=== PATIENT | male | born 1940 | race Caucasian/White ===

== ENCOUNTER 2017-09-24 19:08 | Emergency (ER) | payer OTHER ==
[2017-09-24] MEDS ORDERED: PIPER/TAZO/NS 3.375gm 3.375 GM/100 ML BAG ONE (20:02)
[2017-09-24] MEDS ORDERED: MOXIFLOXACIN HCL 10 DROPS/ML **OR USE OPTH ONE (20:08)
--- NOTE | 2017-09-24 20:18 | ER ---
Nurse's Notes [facility] Name: José Manuel Ferguson Jr Age: 77 yrs Sex: Male : 1940 Arrival Date: 09/24/2017 Time: 19:12 Bed 13 Private MD: Diagnosis: bilateral bacterial conjunctivitis Presentation: 09/24 19:17 Presenting complaint: Patient states: Redness, swelling, discharge from both eyes for lp1 past 3 days, Patient states it has gotten a bit better now. Transition of care: patient was not received from another setting of care. Onset of symptoms was September 21, 2017. Risk Assessment: Do you want to hurt yourself or someone else? Patient reports no desire to harm self or others. Initial Sepsis Screen: Does the patient meet any 2 criteria? No. Patient's initial sepsis screen is negative. Does the patient have a suspected source of infection? No. Patient's initial sepsis screen is negative. Care prior to arrival: None. 19:17 Method Of Arrival: Wheelchair lp1 19:17 Acuity: YUNI 3 lp1 Historical: - Allergies: 19:26 No Known Allergies; lp1 - Home Meds: 19:26 levothyroxine 25 mcg tab 1 tab once daily [Active]; ProAir HFA 90 mcg/actuation lp1 inhalation HFAA 2 puffs every 6 hours [Active]; Symbicort 80-4.5 mcg/actuation inhalation HFAA 2 puffs 2 times per day [Active]; glipizide 5 mg Oral tab [Active]; aspirin 81 mg Oral TbEC 1 tab once daily [Active]; lisinopril 5 mg Oral tab nightly [Active]; atorvastatin 10 mg oral tab nightly [Active]; metformin 500 mg Oral tab 1 tab 2 times per day [Active]; - PMHx: 19:26 continuous home O2, 2L NC; COPD; Diabetes - NIDDM; High Cholesterol; Hypertension; lp1 - PSHx: 19:26 None; lp1 - Immunization history:: Adult Immunizations up to date. - Social history:: Smoking status: Patient/guardian denies using tobacco, the patient reports quitting approximately 3 years ago. - Ebola Screening: : No symptoms or risks identified at this time. Screenin:30 Abuse screen: Denies threats or abuse. Denies injuries from another. Nutritional bp screening: No deficits noted. Tuberculosis screening: No symptoms or risk factors identified. Fall Risk None identified. Assessment: 19:35 General: Appears in no apparent distress. uncomfortable, obese, Behavior is calm, bp cooperative, appropriate for age. Pain: Complains of pain in right eye and left eye. Neuro: Level of Consciousness is awake, alert, obeys commands, Oriented to person, place, time, situation, Appropriate for age. Cardiovascular: No deficits noted. Respiratory: HOME O2 DEPENDENT, AT BASELINE. GI: No signs and/or symptoms were reported involving the gastrointestinal system. : No signs and/or symptoms were reported regarding the genitourinary system. EENT: Eyes with exudate noted from outer aspect of conjuctiva of right eye, inner aspect of conjuctiva of right eye, outer aspect of conjuctiva of left eye and inner aspect of conjunctiva of left eye. Derm: No deficits noted. Musculoskeletal: Circulation, motion, and sensation intact. Range of motion: intact in all extremities. 20:21 Reassessment: D/C ON HOLD PENDING IV ABX COMPLETION. bp 21:12 Reassessment: PT D/C HOME AMBULATORY, DX WITH BILATERAL BACTERIAL CONJUNCTIVITIS. bp Vital Signs: 19:22 BP 142 / 59; Pulse 69; Resp 18; Temp 97.5(O); Pulse Ox 92% on 4 lpm NC; Weight 114.76 lp1 kg; Height 5 ft. 6 in. (167.64 cm); Pain 6/10; 19:35 BP 154 / 60; Pulse 62; Resp 18; Pulse Ox 93% ; bp 20:30 BP 122 / 49; Pulse 60; Resp 18; Pulse Ox 93% ; bp 21:13 BP 136 / 54; Pulse 58; Resp 16; Pulse Ox 94% ; bp 19:22 Body Mass Index 40.83 (114.76 kg, 167.64 cm) lp1 ED Course: 19:12 Patient arrived in ED. al2 19:22 Triage completed. lp1 19:22 Arm band placed on right wrist. lp1 19:30 Miles Braxton, CLINT is Primary Nurse. bp 19:30 Sebastian Mallory MD is Attending Physician. wa 19:30 Patient has correct armband on for positive identification. Bed in low position. Call bp light in reach. Side rails up X2. 19:59 Inserted saline lock: 22 gauge in right forearm, using aseptic technique. bp 20:16 Hao Gilman MD is Referral Physician. wa 21:12 No provider procedures requiring assistance completed. IV discontinued, intact, bp bleeding controlled, No redness/swelling at site. Pressure dressing applied. Administered Medications: 20:06 Drug: Zosyn 3.375 grams Route: IVPB; Infused Over: 60 mins; Site: right forearm; bp 20:52 Follow up: IV Status: Completed infusion bp 20:15 Drug: Vigamox 0.5 % 1 drops Route: Ophthalmic; Site: both eyes; bp 20:52 Follow up: Response: No adverse reaction bp Outcome: 20:17 Discharge ordered by . wa 21:12 Discharged to home ambulatory, with family. bp 21:12 Condition: stable 21:12 Discharge instructions given to patient, Instructed on discharge instructions, follow up and referral plans. medication usage, Demonstrated understanding of instructions, follow-up care, medications, Prescriptions given X 2. 21:13 Patient left the ED. bp Signatures: Arina Gurrola RN RN lp1 Sebastian Mallory MD MD wa Peltier, Brian RN RN Pat Garcia
--- NOTE | 2017-09-24 20:18 | EDPHYS ---
Physician Documentation [facility] Name: José Manuel Ferguson Jr Age: 77 yrs Sex: Male : 1940 Arrival Date: 09/24/2017 Time: 19:12 Bed 13 Private MD: ED Physician Sebastian Mallory HPI: 09/24 20:04 This 77 yrs old Male presents to ER via Wheelchair with complaints of Eye wa Problem, Eye Swelling. 20:04 The patient is experiencing matting or discharge, redness, to both eyes, caused by an wa unknown mechanism. Onset: The symptoms/episode began/occurred 3 day(s) ago. Duration: the symptoms are continuous. Aggravated by nothing. Alleviated by nothing. Associated signs and symptoms: Pertinent negatives: chills, dizziness, fever, headache, runny nose. Severity of symptoms: At their worst the symptoms were moderate in the emergency department the symptoms are unchanged. The patient has not experienced similar symptoms in the past. The patient has not recently seen a physician. Historical: - Allergies: 19:26 No Known Allergies; lp1 - Home Meds: 19:26 levothyroxine 25 mcg tab 1 tab once daily [Active]; ProAir HFA 90 mcg/actuation lp1 inhalation HFAA 2 puffs every 6 hours [Active]; Symbicort 80-4.5 mcg/actuation inhalation HFAA 2 puffs 2 times per day [Active]; glipizide 5 mg Oral tab [Active]; aspirin 81 mg Oral TbEC 1 tab once daily [Active]; lisinopril 5 mg Oral tab nightly [Active]; atorvastatin 10 mg oral tab nightly [Active]; metformin 500 mg Oral tab 1 tab 2 times per day [Active]; - PMHx: 19:26 continuous home O2, 2L NC; COPD; Diabetes - NIDDM; High Cholesterol; Hypertension; lp1 - PSHx: 19:26 None; lp1 - Immunization history:: Adult Immunizations up to date. - Social history:: Smoking status: Patient/guardian denies using tobacco, the patient reports quitting approximately 3 years ago. - Ebola Screening: : No symptoms or risks identified at this time. ROS: 20:07 Constitutional: Negative for fever, chills, and weight loss, ENT: Negative for injury, wa pain, and discharge, Neck: Negative for injury, pain, and swelling, Cardiovascular: Negative for chest pain, palpitations, and edema, Respiratory: Negative for shortness of breath, cough, wheezing, and pleuritic chest pain, Abdomen/GI: Negative for abdominal pain, nausea, vomiting, diarrhea, and constipation, Back: Negative for injury and pain, MS/Extremity: Negative for injury and deformity, Skin: Negative for injury, rash, and discoloration, Neuro: Negative for headache, weakness, numbness, tingling, and seizure. 20:07 Eyes: Positive for discharge, pain, redness, Negative for blurry vision, photophobia. 20:07 All other systems are negative. Exam: 20:08 Constitutional: This is a well developed, well nourished patient who is awake, alert, wa and in no acute distress. Head/Face: Normocephalic, atraumatic. ENT: Nares patent. No nasal discharge, no septal abnormalities noted. Tympanic membranes are normal and external auditory canals are clear. Oropharynx with no redness, swelling, or masses, exudates, or evidence of obstruction, uvula midline. Mucous membranes moist. Neck: Trachea midline, no thyromegaly or masses palpated, and no cervical lymphadenopathy. Supple, full range of motion without nuchal rigidity, or vertebral point tenderness. No Meningismus. Chest/axilla: Normal chest wall appearance and motion. Nontender with no deformity. No lesions are appreciated. Cardiovascular: Regular rate and rhythm with a normal S1 and S2. No gallops, murmurs, or rubs. Normal PMI, no JVD. No pulse deficits. Respiratory: Lungs have equal breath sounds bilaterally, clear to auscultation and percussion. No rales, rhonchi or wheezes noted. No increased work of breathing, no retractions or nasal flaring. Abdomen/GI: Soft, non-tender, with normal bowel sounds. No distension or tympany. No guarding or rebound. No evidence of tenderness throughout. Back: No spinal tenderness. No costovertebral tenderness. Full range of motion. Skin: Warm, dry with normal turgor. Normal color with no rashes, no lesions, and no evidence of cellulitis. MS/ Extremity: Pulses equal, no cyanosis. Neurovascular intact. Full, normal range of motion. Neuro: Awake and alert, GCS 15, oriented to person, place, time, and situation. Cranial nerves II-XII grossly intact. Motor strength 5/5 in all extremities. Sensory grossly intact. Cerebellar exam normal. Normal gait. Psych: Awake, alert, with orientation to person, place and time. Behavior, mood, and affect are within normal limits. 20:08 Eyes: Pupils: equal, round, and reactive to light and accomodation, Extraocular movements: intact throughout, Conjunctiva: exudate, bilaterally, injected, bilaterally, Corneas: are normal, Sclera: reddened, Anterior chamber: normal. Vital Signs: 19:22 BP 142 / 59; Pulse 69; Resp 18; Temp 97.5(O); Pulse Ox 92% on 4 lpm NC; Weight 114.76 lp1 kg; Height 5 ft. 6 in. (167.64 cm); Pain 6/10; 19:35 BP 154 / 60; Pulse 62; Resp 18; Pulse Ox 93% ; bp 20:30 BP 122 / 49; Pulse 60; Resp 18; Pulse Ox 93% ; bp 21:13 BP 136 / 54; Pulse 58; Resp 16; Pulse Ox 94% ; bp 19:22 Body Mass Index 40.83 (114.76 kg, 167.64 cm) lp1 Procedures: 20:10 Performed bilateral eye irrigation. pt eyes washed with copious amount of saline. wa discharge removed. pt tolerated procedure well. topical abx applied to eyes bilaterally. MDM: 19:30 Patient medically screened. wa 20:09 Differential diagnosis: symptoms concerning for bacterial conjunctivitis. will irrigate wa with saline to remove nidus of infection. IV abx x 1. will apply topical abx as well. close f/u with ophtho. Data reviewed: vital signs, nurses notes. 20:15 Response to treatment: the patient's symptoms have markedly improved after treatment. ri 09/24 19:50 Order name: IV Saline Lock; Complete Time: 19:59 wa Administered Medications: 20:06 Drug: Zosyn 3.375 grams Route: IVPB; Infused Over: 60 mins; Site: right forearm; bp 20:52 Follow up: IV Status: Completed infusion bp 20:15 Drug: Vigamox 0.5 % 1 drops Route: Ophthalmic; Site: both eyes; bp 20:52 Follow up: Response: No adverse reaction bp Disposition: 09/24/17 20:17 Discharged to Home. Impression: bilateral bacterial conjunctivitis. - Condition is Stable. - Discharge Instructions: Bacterial Conjunctivitis, [id number]. - Prescriptions for Vigamox 0.5 % Ophthalmic Drops - instill 1 drop by OPHTHALMIC route every 8 hours for 7 days; 5 milliliter. Augmentin 875- 125 mg Oral Tablet - take 1 tablet by ORAL route every 12 hours for 7 days; 14 tablet. - Medication Reconciliation Form, Thank You Letter, Antibiotic Education, Prescription Opioid Use form. - Follow up: Hao Gilman MD; When: 1 - 2 days. - Problem is new. - Symptoms have improved. - Notes: take medicines as prescribed. follow up with the eye doctor for further evaluation within 48 hours. return here immediately for rapidly worsening concerns Signatures: Arina Gurrola, RN RN lp1 Sebastian Mallory MD MD wa Miles Braxton RN RN bp Corrections: (The following items were deleted from the chart) 21:13 20:17 09/24/2017 20:17 Discharged to Home. Impression: bilateral bacterial bp conjunctivitis. Condition is Stable. Forms are Medication Reconciliation Form, Thank You Letter, Antibiotic Education, Prescription Opioid Use. Follow up: Hao Gilman; When: 1 - 2 days. Problem is new. Symptoms have improved. wa
[2017-09-24 21:17] VITALS: TEMP 97.5
[2017-09-24 21:21] VITALS: BP 136/54; O2SAT 94
== END 2017-09-24 21:13 | disposition home or self-care (01) ==
LOC: ER 19:08
DX: H10.89 Other conjunctivitis (principal); J44.9 Chronic obstructive pulmonary disease, unspecified; E11.9 Type 2 diabetes mellitus without complications; I10 Essential (primary) hypertension; E78.00 Pure hypercholesterolemia, unspecified
CPT/HCPCS: 96365; 99283; J2543

== ENCOUNTER 2018-08-07 09:50 | Observation (INO) | payer OTHER ==
[2018-08-07 10:31] LABS: Absolute Monocytes 0.7 K/uL (0.1-1.3); Absolute Neutrophil 4.4 K/uL (1.8-8.0); Basophils % 0.8 % (0-1.3); Eosinophils % 3.7 % (0-4.4); Hematocrit 29.1 % (39.6-49.0); Lymphocytes % 15.5 % (15.3-44.8); RBC Red Blood Cell Count 3.43 M/uL (4.33-5.43)
[2018-08-07] MEDS ORDERED: METHYLPREDNISOLONE 125 MG INJ ONE (10:36)
[2018-08-07] MEDS ORDERED: LEVALBUTEROL 1.25 MG/3 ML NEB ONE (10:37)
--- NOTE | 2018-08-07 10:41 | RAD REPORT ---
EXAM DESCRIPTION: RAD - Chest Single View - 08/07/2018 10:23 am CLINICAL HISTORY: Cough;Dyspnea Chest pain. COMPARISON: Chest Single View dated 06/29/2017; Chest Pa And Lat (2 Views) dated 02/11/2017; Chest Sin gle View dated 10/16/2016; Chest Single View dated 05/07/2016 FINDINGS: Portable technique limits examination quality. There is a right lung base pulmonary opacity present with a small to moderate right pleural effusion. Most likely this represents right basilar pneumonia/infiltrate. The heart is moderately enlarged in size. No displaced fractures.Aortic atherosclerosis. IMPRESSION: Moderate right basilar pneumonia.
[2018-08-07 10:49] LABS: Troponin (Emerg Dept Use Only) 0.08 ng/mL (0.0-0.045)
--- NOTE | 2018-08-07 11:07 | EDPHYS ---
Physician Documentation [facility] Name: José Manuel Ferguson Jr Age: 78 yrs Sex: Male : 1940 Arrival Date: 08/07/2018 Time: 09:51 Bed 28 Private MD: ED Physician Melvin Curry HPI: 08/07 10:26 This 78 yrs old Male presents to ER via Wheelchair with complaints of rn Breathing Difficulty. 10:26 The patient has shortness of breath at rest, with light activity. Onset: The rn symptoms/episode began/occurred 5 day(s) ago. Duration: The symptoms are continuous. The patient's shortness of breath is aggravated by exertion, light activity. Severity of symptoms: At their worst the symptoms were moderate in the emergency department the symptoms are unchanged. The patient has experienced similar episodes in the past. The patient has not recently seen a physician. REports 5 days of increased difficulty breathing, no fever, on home oxygen but requiring more, non-productive cough, no chest pain. . Historical: - Allergies: 10:11 No Known Allergies; jl7 - Home Meds: 10:11 aspirin 81 mg Oral TbEC 1 tab once daily [Active]; atorvastatin 10 mg Oral tab nightly jl7 [Active]; glipizide 5 mg Oral tab [Active]; levothyroxine 25 mcg tab 1 tab once daily [Active]; lisinopril 5 mg Oral tab nightly [Active]; metformin 500 mg Oral tab 1 tab 2 times per day [Active]; ProAir HFA 90 mcg/actuation inhalation HFAA 2 puffs every 6 hours [Active]; Symbicort 80-4.5 mcg/actuation inhalation HFAA 2 puffs 2 times per day [Active]; - PMHx: 10:02 COPD; Diabetes - NIDDM; High Cholesterol; Hypertension; aa5 10:11 continuous home O2, 2L NC; jl7 - Immunization history:: Adult Immunizations up to date. - Social history:: Smoking status: Patient/guardian denies using tobacco. - Ebola Screening: : No symptoms or risks identified at this time. - Family history:: not pertinent. - Hospitalizations: : No recent hospitalization is reported. ROS: 10:26 Constitutional: Negative for fever, chills, and weight loss, Eyes: Negative for injury, rn pain, redness, and discharge, Neck: Negative for injury, pain, and swelling, Cardiovascular: Negative for chest pain, palpitations, and edema, Respiratory: + sob and cough Abdomen/GI: Negative for abdominal pain, nausea, vomiting, diarrhea, and constipation, MS/Extremity: Negative for injury and deformity, Skin: Negative for injury, rash, and discoloration, Neuro: Negative for headache, numbness, tingling, and seizure. Exam: 10:26 Constitutional: This is a well developed, well nourished patient who is awake, alert, rn + mild respiratory distress Head/Face: Normocephalic, atraumatic. Eyes: Pupils equal round and reactive to light, extra-ocular motions intact. Lids and lashes normal. Conjunctiva and sclera are non-icteric and not injected. Cornea within normal limits. Periorbital areas with no swelling, redness, or edema. ENT: MMM, no stridor, no oral swelling Cardiovascular: Regular rate and rhythm Respiratory: + diminished bilaterla breath sounds with wheezing at bases, no retractions Abdomen/GI: soft, non-tender MS/ Extremity: Pulses equal, no cyanosis. Neurovascular intact. Full, normal range of motion. Equal circumference. 2+ pitting edema bilateral lower ext. Neuro: Awake and alert, GCS 15, oriented to person, place, time, and situation. Cranial nerves II-XII grossly intact. Motor strength 5/5 in all extremities. Sensory grossly intact. 10:29 ECG was reviewed by the Attending Physician. rn Vital Signs: 10:00 BP 140 / 69; Pulse 65; Resp 16 S; Temp 98.3(O); Pulse Ox 94% on 4 lpm NC; Weight 113.4 jl7 kg (R); Pain 0/10; 11:00 BP 138 / 75; Pulse 65; Resp 16 S; Pulse Ox 95% on 2 lpm NC; jl7 12:00 BP 135 / 70; Pulse 69; Resp 16 S; Pulse Ox 97% on 2 lpm NC; jl7 MDM: 10:04 Patient medically screened. rn 11:04 Differential diagnosis: Bronchitis CHF exacerbation, Chronic Obstructive Pulmonary rn Disease pneumonia. Data reviewed: vital signs, nurses notes, lab test result(s), radiologic studies, plain films, and as a result, I will admit patient. Counseling: I had a detailed discussion with the patient and/or guardian regarding: the historical points, exam findings, and any diagnostic results supporting the discharge/admit diagnosis, lab results, radiology results, the need for further work-up and treatment in the hospital. Response to treatment: the patient's symptoms have mildly improved after treatment, and as a result, I will admit patient. Admission orders: after a detailed discussion of the patient's condition and case, the admit orders are written by me. 11:04 ED course: Will admit for COPD/CHF exacerbation and pneumonia, increased oxygen rn requirement. . 08/07 10:12 Order name: Blood Culture Adult (2) rn 08/07 10:12 Order name: BMP; Complete Time: 10:50 rn 08/07 10:12 Order name: CBC with Diff; Complete Time: 10:44 rn 08/07 10:12 Order name: NT PRO-BNP; Complete Time: 10:50 rn 08/07 10:12 Order name: Troponin (emerg Dept Use Only); Complete Time: 10:50 rn 08/07 11:16 Order name: Influenza Screen (A EDTN 08/07 10:12 Order name: XRAY CXR (1 view); Complete Time: 10:44 rn 08/07 14:59 Order name: Urine Dipstick--Ancillary (enter results) 08/07 15:03 Order name: Urine Dipstick-Ancillary EDTN 08/07 16:32 Order name: Procalcitonin EDTN 08/07 10:12 Order name: EKG; Complete Time: 10:13 rn 08/07 10:12 Order name: Cardiac monitoring; Complete Time: 10:23 rn 08/07 10:12 Order name: EKG - Nurse/Tech; Complete Time: : rn 08/07 10:12 Order name: IV Saline Lock; Complete Time: : rn 08/07 10:12 Order name: Labs collected and sent; Complete Time: 10: rn 08/07 10:12 Order name: O2 Per Protocol; Complete Time: : rn 08/07 10:12 Order name: O2 Sat Monitoring; Complete Time: : rn 08/07 11:16 Order name: CONS Physician Consult EDMS EC:29 Rate is 64 beats/min. Rhythm is regular. QRS [place] is Normal. MA interval is prolonged. rn QRS interval is normal. QT interval is normal. No Q waves. T waves are Normal. No ST changes noted. Clinical impression: Abnormal EKG without significant change. Interpreted by me. Administered Medications: 10:25 Drug: SOLU-Medrol 125 mg Route: IVP; Site: right antecubital; jl7 10:45 Follow up: Response: No adverse reaction jl7 10:26 Drug: Xopenex (3) 1.25 mg Route: Inhalation; jl7 10:45 Follow up: Response: No adverse reaction jl7 11:10 Drug: Lasix 20 mg Route: IVP; Site: right antecubital; jl7 12:00 Follow up: Response: No adverse reaction jl7 11:31 Not Given (Wrong pharmacy order): Rocephin - (cefTRIAXone) 1 grams IVPB once over 30 jl7 mins; (mix in 50 mL NS) 11:32 Drug: Rocephin 1 grams Route: IV; Rate: calculated rate; Site: right antecubital; jl7 11:35 Follow up: Response: No adverse reaction; IV Status: Completed infusion jl7 12:30 Drug: Zithromax 500 mg Route: IVPB; Infused Over: 1 hrs; Site: right antecubital; jl7 14:30 Follow up: Response: No adverse reaction; IV Status: Completed infusion jl7 Disposition: 11:04 Critical Care:. rn Disposition: 08/07/18 11:06 Hospitalization ordered by Isamar Cosby for Inpatient Admission. Preliminary diagnosis are Pneumonia, Chronic obstructive pulmonary disease with acute lower respiratory infection, Pulmonary edema, Hypoxemia. - Bed requested for Telemetry/MedSurg (Inpatient). - Status is Inpatient Admission. ed1 - Condition is Stable. - Problem is new. - Symptoms have improved. UTI on Admission? No Critical care time excluding procedures: 11:04 Critical care time: Bedside Care: 25 minutes, Consultation: 5 minutes, Family rn Intervention: 4 minutes. Total time: 34 minutes Signatures: Dispatcher [employer] EDMS Jina Dixon Irene, RN Melvin Olguin MD MD rn Calderon, Audri, RN RN aa5 Matilde Moyer RN RN ed1 Yaritza Parekh RN RN jl7 Corrections: (The following items were deleted from the chart) 11:32 11:06 Hospitalization Ordered by Isamar Cosby MD for Inpatient Admission. Preliminary iw diagnosis is Pneumonia; Chronic obstructive pulmonary disease with acute lower respiratory infection; Pulmonary edema; Hypoxemia. Bed requested for Telemetry/MedSurg (Inpatient). Status is Inpatient Admission. Condition is Stable. Problem is new. Symptoms have improved. UTI on Admission? No. rn 11:32 11:32 08/07/2018 11:06 Hospitalization Ordered by Isamar Cosby MD for Inpatient iw Admission. Preliminary diagnosis is Pneumonia; Chronic obstructive pulmonary disease with acute lower respiratory infection; Pulmonary edema; Hypoxemia. Bed requested for [facility] ER HOLD. Status is Inpatient Admission. Condition is Stable. Problem is new. Symptoms have improved. UTI on Admission? No. iw 17:31 11:32 08/07/2018 11:06 Hospitalization Ordered by Isamar Cosby MD for Inpatient bd Admission. Preliminary diagnosis is Pneumonia; Chronic obstructive pulmonary disease with acute lower respiratory infection; Pulmonary edema; Hypoxemia. Bed requested for [facility] ER HOLD. Status is Inpatient Admission. Condition is Stable. Problem is new. Symptoms have improved. UTI on Admission? No. iw 20:42 17:31 08/07/2018 11:06 Hospitalization Ordered by Isamar Cosby MD for Inpatient ed1 Admission. Preliminary diagnosis is Pneumonia; Chronic obstructive pulmonary disease with acute lower respiratory infection; Pulmonary edema; Hypoxemia. Bed requested for Telemetry/MedSurg (Inpatient). Status is Inpatient Admission. Condition is Stable. Problem is new. Symptoms have improved. UTI on Admission? No. bd
--- NOTE | 2018-08-07 11:07 | ER ---
Nurse's Notes [facility] Name: José Manuel Ferguson Jr Age: 78 yrs Sex: Male : 1940 Arrival Date: 08/07/2018 Time: 09:51 Bed 28 Private MD: Diagnosis: Pneumonia;Chronic obstructive pulmonary disease with acute lower respiratory infection;Pulmonary edema;Hypoxemia Presentation: 08/07 09:55 Presenting complaint: Patient states: SOB that began 5 days ago, pt reports hx of COPD, aa5 reports 88% O2 sat via 4 L NC. 09:55 Transition of care: patient was not received from another setting of care. Onset of aa5 symptoms was July 2018. Care prior to arrival: None. 09:55 Method Of Arrival: Wheelchair aa5 09:55 Acuity: YUNI 3 aa5 10:08 Risk Assessment: Do you want to hurt yourself or someone else? Patient reports no jl7 desire to harm self or others. Initial Sepsis Screen: Does the patient meet any 2 criteria? RR > 20 per min. No. Patient's initial sepsis screen is negative. Does the patient have a suspected source of infection? No. Patient's initial sepsis screen is negative. Triage Assessment: 10:11 General: Appears distressed, uncomfortable, Behavior is calm, cooperative, appropriate jl7 for age. Pain: Denies pain. EENT: No signs and/or symptoms were reported regarding the EENT system. Neuro: Level of Consciousness is awake, alert, obeys commands, Oriented to person, place, time, situation. Cardiovascular: Heart tones present Patient's skin is warm and dry. Respiratory: Reports shortness of breath at rest Airway is patent Respiratory effort is even, unlabored, Respiratory pattern is regular, symmetrical, Breath sounds are diminished bilaterally. Onset: The symptoms/episode began/occurred at an unknown time. the patient has moderate shortness of breath. GI: No signs and/or symptoms were reported involving the gastrointestinal system. : No signs and/or symptoms were reported regarding the genitourinary system. Derm: Skin is pink, warm \T\ dry. Historical: - Allergies: 10:11 No Known Allergies; jl7 - Home Meds: 10:11 aspirin 81 mg Oral TbEC 1 tab once daily [Active]; atorvastatin 10 mg Oral tab nightly jl7 [Active]; glipizide 5 mg Oral tab [Active]; levothyroxine 25 mcg tab 1 tab once daily [Active]; lisinopril 5 mg Oral tab nightly [Active]; metformin 500 mg Oral tab 1 tab 2 times per day [Active]; ProAir HFA 90 mcg/actuation inhalation HFAA 2 puffs every 6 hours [Active]; Symbicort 80-4.5 mcg/actuation inhalation HFAA 2 puffs 2 times per day [Active]; - PMHx: 10:02 COPD; Diabetes - NIDDM; High Cholesterol; Hypertension; aa5 10:11 continuous home O2, 2L NC; jl7 - Immunization history:: Adult Immunizations up to date. - Social history:: Smoking status: Patient/guardian denies using tobacco. - Ebola Screening: : No symptoms or risks identified at this time. - Family history:: not pertinent. - Hospitalizations: : No recent hospitalization is reported. Screenin:30 Abuse screen: Denies threats or abuse. Denies injuries from another. Nutritional jl7 screening: No deficits noted. Tuberculosis screening: No symptoms or risk factors identified. Fall Risk IV access (20 points). Assessment: 10:15 General: See triage assessment. jl7 11:30 Reassessment: Patient appears in no apparent distress at this time. Patient and/or jl7 family updated on plan of care and expected duration. Pain level reassessed. Patient is alert, oriented x 3, equal unlabored respirations, skin warm/dry/pink. 12:30 Reassessment: Patient appears in no apparent distress at this time. No changes from jl7 previously documented assessment. Patient and/or family updated on plan of care and expected duration. Pain level reassessed. Patient is alert, oriented x 3, equal unlabored respirations, skin warm/dry/pink. Vital Signs: 10:00 BP 140 / 69; Pulse 65; Resp 16 S; Temp 98.3(O); Pulse Ox 94% on 4 lpm NC; Weight 113.4 jl7 kg (R); Pain 0/10; 11:00 BP 138 / 75; Pulse 65; Resp 16 S; Pulse Ox 95% on 2 lpm NC; jl7 12:00 BP 135 / 70; Pulse 69; Resp 16 S; Pulse Ox 97% on 2 lpm NC; jl7 ED Course: 09:51 Patient arrived in ED. rg4 09:57 Arm band placed on Patient placed in an exam room, on a stretcher. aa5 10:01 Triage completed. aa5 10:04 Melvin Curry MD is Attending Physician. rn 10:05 Initial lab(s) drawn, by me, sent to lab. kj1 10:05 First set of blood cultures drawn by me. kj1 10:07 Yaritza Parekh RN is Primary Nurse. jl7 10:15 Inserted saline lock: 22 gauge in right antecubital area, using aseptic technique. kj1 10:19 EKG done, by elevator technician. reviewed by Melvin Curry MD. at1 10:20 Second set of blood cultures drawn by me. kj1 10:22 X-ray completed. Portable x-ray completed in exam room. Patient tolerated procedure jb2 well. 10:22 XRAY CXR (1 view) In Process Unspecified. EDMS 10:26 Blood Culture Adult (2) Sent. kj1 10:26 CBC with Diff Sent. kj1 10:30 Patient has correct armband on for positive identification. Placed in gown. Bed in low jl7 position. Call light in reach. Side rails up X2. hospitality workers on. Pulse ox on. NIBP on. Warm blanket given. 11:05 Isamar Cosby MD is Hospitalizing Provider. rn 14:00 No provider procedures requiring assistance completed. Patient admitted, IV remains in jl7 place. intact, No redness/swelling at site. 19:05 Assisted to bathroom. jp3 19:44 Primary Nurse role handed off by Yaritza Parekh RN ed1 Administered Medications: 10:25 Drug: SOLU-Medrol 125 mg Route: IVP; Site: right antecubital; jl7 10:45 Follow up: Response: No adverse reaction jl7 10:26 Drug: Xopenex (3) 1.25 mg Route: Inhalation; jl7 10:45 Follow up: Response: No adverse reaction jl7 11:10 Drug: Lasix 20 mg Route: IVP; Site: right antecubital; jl7 12:00 Follow up: Response: No adverse reaction jl7 11:31 Not Given (Wrong pharmacy order): Rocephin - (cefTRIAXone) 1 grams IVPB once over 30 jl7 mins; (mix in 50 mL NS) 11:32 Drug: Rocephin 1 grams Route: IV; Rate: calculated rate; Site: right antecubital; jl7 11:35 Follow up: Response: No adverse reaction; IV Status: Completed infusion jl7 12:30 Drug: Zithromax 500 mg Route: IVPB; Infused Over: 1 hrs; Site: right antecubital; jl7 14:30 Follow up: Response: No adverse reaction; IV Status: Completed infusion jl7 Outcome: 11:06 Decision to Hospitalize by Provider. rn 11:32 Admitted to ER Hold. Please see [facility] for further documentation. iw 11:32 Condition: stable 11:32 Discharge instructions given to patient, Instructed on the need for admit. 20:42 Patient left the ED. ed1 Signatures: Dispatcher [employer] EDMS Cornell Agustin Irene, RN RN iw Melvin Curry MD MD rn Calderon, Audri, RN RN aa5 Matilde Moyer RN RN ed1 Eden Morales, merchandise flow team leader EKG Tat1 Vangie Dunlap4 Yaritza Parekh RN RN jl7 Dominick Rodrigez jp3 Pia Blake kj1 Corrections: (The following items were deleted from the chart) 10:02 09:55 Acuity: YUNI 2 aa5 aa5
[2018-08-07] MEDS ORDERED: FUROSEMIDE 20 MG/ 2ML VIAL ONE (11:22)
[2018-08-07] MEDS ORDERED: CEFTRIAXONE/SWI 1gm 1 GM/10 ML SYR ONE (11:23)
--- NOTE | 2018-08-07 11:47 | EKG ---
Test Date: 2018-08-07 Test Time: 10:14:21 Human Machine Interface Engineer: TERRY MEASUREMENT RESULTS: Intervals: Rate: 64 [place]: 222 QRSD: 90 QT: 392 QTc: 404 [place]: P: 72 [place]: 222 QRS: 71 T: 54 INTERPRETIVE STATEMENTS: Sinus rhythm with 1st degree AV block Nonspecific ST abnormality Abnormal ECG Compared to ECG 06/29/2017 14:06:30 ST (T wave) deviation now present Electronically Signed On 08-07-18 11:40:51 CDT by Kings Becerra
[2018-08-07] MEDS ORDERED: AZITHROMYCIN IV 500 MG in NA CHLORIDE 0.9% 250 ML IVPB ONE (12:00)
[2018-08-07] MEDS: IPRATROPIUM BROM 0.5MG/2.5ML NEB SCH ×2 (13:45→20:00)
[2018-08-07] MEDS: ALBUTEROL 2.5 MG/3 ML NEB SOL NEB SCH ×2 (13:45→20:00)
[2018-08-07] MEDS ORDERED: ONDANSETRON 4 MG/2 ML VIAL IV PRN (13:47)
[2018-08-07] MEDS ORDERED: IPRATROPIUM BROM 0.5MG/2.5ML ONE (13:56)
[2018-08-07] MEDS ORDERED: ALBUTEROL 2.5 MG/3 ML NEB SOL ONE (13:56)
[2018-08-07] MEDS: ENOXAPARIN 40 MG/0.4 ML SQ SCH (15:00)
[2018-08-07 15:03] LABS: Urine Blood TRACE (NEG); Urine Glucose NEGATIVE (NEG); Urine Protein TRACE (NEG)
[2018-08-07] MEDS ORDERED: ENOXAPARIN 40 MG/0.4 ML SQ ONE (17:09)
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
[2018-08-07] MEDS: ATORVASTATIN 10 MG TAB PO SCH (21:29)
[2018-08-07] MEDS: predniSONE 20 MG TAB PO SCH (21:29)
[2018-08-07] MEDS: LISINOPRIL 5 MG TAB PO SCH (21:29)
[2018-08-07 22:54] VITALS: BMI 36.3
[2018-08-08] MEDS: IPRATROPIUM BROM 0.5MG/2.5ML NEB SCH ×4 (02:00→20:00)
[2018-08-08] MEDS: ALBUTEROL 2.5 MG/3 ML NEB SOL NEB SCH ×4 (02:00→20:00)
[2018-08-08] MEDS: LEVOTHYROXINE SOD 0.05 MG TABLET PO SCH (05:06)
[2018-08-08 05:26] LABS: Absolute Lymphocytes (CBC) 0.7 K/uL (0.7-4.9); Absolute Monocytes 0.4 K/uL (0.1-1.3); Absolute Neutrophil 4.1 K/uL (1.8-8.0); Basophils % 0.1 % (0-1.3); Hematocrit 28.8 % (39.6-49.0); Lymphocytes % 12.7 % (15.3-44.8); MPV 7.7 fL (7.6-11.3); Monocytes % 6.8 % (3.3-12.3); RBC Red Blood Cell Count 3.35 M/uL (4.33-5.43)
[2018-08-08 05:51] LABS: Bilirubin Total 0.3 mg/dL (0.2-1.0); Potassium 4.7 mmol/L (3.5-5.1); Protein, Total 8.3 g/dL (6.4-8.2)
[2018-08-08] MEDS ORDERED: D50W 25 GM/50 ML SYRINGE IV PRN ×2 (06:05→06:06)
[2018-08-08] MEDS ORDERED: GLUCAGON 1 MG/VIAL IM PRN ×2 (06:05→06:06)
[2018-08-08] MEDS ORDERED: INSULIN -REGULAR HUMAN 50 UNIT/0.5 ML ML SQ ONE (06:07)
[2018-08-08] MEDS ORDERED: VANCOMYCIN 1.25 GM in NA CHLORIDE 0.9% 250 ML IVPB ONE (06:30)
[2018-08-08] MEDS ORDERED: VANCOMYCIN 1.25 GM in NA CHLORIDE 0.9% 250 ML IVPB SCH (07:30)
[2018-08-08] MEDS ORDERED: INSULIN -REGULAR HUMAN 50 UNIT/0.5 ML ML SQ SCH ×2 (07:30→08:35)
[2018-08-08] MEDS: ENOXAPARIN 40 MG/0.4 ML SQ SCH (08:40)
[2018-08-08] MEDS: predniSONE 20 MG TAB PO SCH (08:40)
[2018-08-08] MEDS: ASPIRIN 81 MG CHEWABLE TABLET PO SCH (08:40)
[2018-08-08] MEDS ORDERED: AZITHROMYCIN IV 500 MG in NA CHLORIDE 0.9% 250 ML IVPB SCH (09:00)
[2018-08-08] MEDS ORDERED: CEFTRIAXONE/SWI 1gm 1 GM/10 ML SYR IVP SCH (09:00)
--- NOTE | 2018-08-08 10:52 | ECHO ---
HEIGHT: 5 ft 7 in WEIGHT: 231 lb 12.8 oz DATE OF STUDY: 08/08/[address]: Isamar Cosby MD 2-DIMENSIONAL: YES M.MODE: YES DOPPLER: YES COLOR FLOW: YES TDS: NO PORTABLE: NO DEFINITY: NO BUBBLE STUDY: NO DIAGNOSIS: CONGESTIVE HEART FAILURE CARDIAC HISTORY: CATHERIZATION: NO SURGERY: NO PROSTHETIC VALVE: NO PACEMAKER: NO MEASUREMENTS (cm) DIASTOLIC (NORMALS) SYSTOLIC (NORMALS) IVSd 1.3 (0.6-1.2) LA Diam 4.3 (1.9-4.0) LVEF 60% LVIDd 4.4 (3.5-5.7) LVIDs 3.0 (2.0-3.5) %FS 32% LVPWd 1.4 (0.6-1.2) Ao Diam 3.3 (2.0-3.7) 2 DIMENSIONAL ASSESSMENT: RIGHT ATRIUM: NORMAL LEFT ATRIUM: DILATED RIGHT VENTRICLE: NORMAL LEFT VENTRICLE: LEFT VENTRICULAR HYPERTROPHY TRICUSPID VALVE: NORMAL MITRAL VALVE: NORMAL PULMONIC VALVE: NORMAL AORTIC VALVE: TRI-LEAFLET PERICARDIAL EFFUSION: NONE AORTIC ROOT: NORMAL LEFT VENTRICULAR WALL MOTION: NORMAL DOPPLER/COLOR FLOW: MILD AORTIC AND MITRAL REGURGITATION. COMMENTS: NORMAL LEFT VENTRICULAR EJECTION FRACTION. DILATED LEFT ATRIUM. LEFT VENTRICULAR HYPERTROPHY. MILD AORTIC AND MITRAL REGURGITATION. TECHNOLOGIST: Oneal CASTRO
[2018-08-08] MEDS: INSULIN -REGULAR HUMAN 50 UNIT/0.5 ML ML SQ SCH ×3 (12:01→21:00)
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
[2018-08-08 15:02] LABS: Arterial Blood Carboxyhemoglob 1.7 % (0-1.5); Blood Gas Oxyhemoglobin 90.9 % (94-97); Blood O2 Saturation 93.1 % (92-98.5)
--- NOTE | 2018-08-08 15:48 | P.PN ---
Subjective Date of Service: 08/08/18 Chief Complaint: SOB Pt Seen and examined at bedside. Chart reviewed. Case Dw with pulmonology. Denies having SOB, CP, fever and chills. Review of Systems 10-point ROS is otherwise unremarkable Physical Examination - Vital Signs Temperature: 97.9 F Blood Pressure: 141/63 Pulse: 67 Respirations: 20 Pulse Ox (%): 91 - Physical Exam General: Alert, In no apparent distress HEENT: Atraumatic, PERRLA, EOMI Neck: Supple, JVD not distended Respiratory: Normal air movement, Expiratory wheezes, Inspiratory wheezes Cardiovascular: Regular rate/rhythm, Normal S1 S2 Gastrointestinal: Normal bowel sounds, No tenderness Musculoskeletal: No tenderness Integumentary: No rashes Neurological: Normal speech, Normal tone, Normal affect Lymphatics: No axilla or inguinal lymphadenopathy - Studies Medications List Reviewed: Yes Assessment And Plan - Current Problems (Diagnosis) (1) COPD with acute exacerbation Onset Date: 07/03/17 Current Visit: No Status: Acute Plan: COPD exacerbation most likely secondary to viral pneumonia vs CHF -duo nebs, steroids, oxygen at this time -will wean oxygen as tolerated -pulmonology consulted. Reccs appreciated -counseled and educated extensively on tobacco cessation. (2) Diastolic CHF Current Visit: Yes Status: Acute Plan: Acute on chronic CHF -IV lasix for now -EChO with WNL EF but dilated Left atrium and ventricle Qualifiers: Heart failure chronicity: acute on chronic Qualified Code(s): I50.33 - Acute on chronic diastolic (congestive) heart failure (3) Pneumonia Current Visit: No Status: Acute Plan: X-ray consistent with pneumonia with possible pleural fusion. Procal negative. most likely viral PNA -DC abx for now. -Culture negative thus far. -pro calcitonin negative. -Monitor for now Qualifiers: Pneumonia type: due to unspecified organism Laterality: unspecified laterality Lung location: unspecified part of lung Qualified Code(s): J18.9 - Pneumonia, unspecified organism (4) CAD (coronary artery disease) Onset Date: 07/03/17 Current Visit: No Status: Chronic Qualifiers: Coronary Disease-Associated Artery/Lesion type: [place] artery [place] vs. transplanted heart: [place] heart Associated angina: without angina Qualified Code(s): I25.10 - Atherosclerotic heart disease of [place] coronary artery without angina pectoris (5) DM2 (diabetes mellitus, type 2) Onset Date: 07/03/17 Current Visit: No Status: Chronic Plan: Insulin sliding scale and Accu-Cheks -Elevated Sugar 2.2 to Steroids -Decreased steroids to 10mg BID Qualifiers: Diabetes mellitus halfway insulin use: without halfway use Diabetes mellitus complication status: without complication Qualified Code(s): E11.9 - Type 2 diabetes mellitus without complications (6) Hyperlipidemia Current Visit: No Status: Chronic Qualifiers: Hyperlipidemia type: pure hypercholesterolemia Qualified Code(s): E78.00 - Pure hypercholesterolemia, unspecified; E78.0 - Pure hypercholesterolemia (7) Hypertension Current Visit: No Status: Chronic Qualifiers: Hypertension type: essential hypertension (8) Obesity Onset Date: 07/03/17 Current Visit: No Status: Chronic Qualifiers: Obesity type: due to excess calories Obesity classification: adult class 2 (BMI 35 - 39.9) Serious obesity comorbidity presence: with serious comorbidity Body mass index: BMI 35.0-35.9 Qualified Code(s): E66.01 - Morbid (severe) obesity due to excess calories; Z68.35 - Body mass index (BMI) 35.0-35.9, adult (9) GERD (gastroesophageal reflux disease) Current Visit: No Status: Suspected Qualifiers: Esophagitis presence: without esophagitis Qualified Code(s): K21.9 - Gastro -esophageal reflux disease without esophagitis - Plan Pending Clinical Improvement. Continue with Duonebs, Steriods and oxygen for now. Discharge Plan: Home Plan to discharge in: Greater than 2 days - Code Status/Comfort Care Code Status Assessed: Yes Critical Care: No
[2018-08-08] MEDS: FUROSEMIDE 20 MG/ 2ML VIAL IV SCH (16:51)
[2018-08-08] MEDS: ATORVASTATIN 10 MG TAB PO SCH (20:38)
[2018-08-08] MEDS: LISINOPRIL 5 MG TAB PO SCH (20:38)
[2018-08-09] MEDS: ALBUTEROL 2.5 MG/3 ML NEB SOL NEB SCH ×3 (02:00→14:05)
[2018-08-09] MEDS: IPRATROPIUM BROM 0.5MG/2.5ML NEB SCH ×3 (02:00→14:05)
[2018-08-09 04:45] LABS: Absolute Lymphocytes (CBC) 1.1 K/uL (0.7-4.9); Absolute Monocytes 0.9 K/uL (0.1-1.3); Absolute Neutrophil 6.1 K/uL (1.8-8.0); Basophils % 0.7 % (0-1.3); Eosinophils % 0.4 % (0-4.4); Hematocrit 30.4 % (39.6-49.0); Lymphocytes % 13.7 % (15.3-44.8); Monocytes % 10.8 % (3.3-12.3); RBC Red Blood Cell Count 3.57 M/uL (4.33-5.43)
[2018-08-09 05:05] LABS: Albumin 3.2 g/dL (3.4-5.0); Bilirubin Total 0.3 mg/dL (0.2-1.0); Potassium 5.2 mmol/L (3.5-5.1); Protein, Total 8.6 g/dL (6.4-8.2)
[2018-08-09] MEDS: LEVOTHYROXINE SOD 0.05 MG TABLET PO SCH (06:46)
[2018-08-09] MEDS: ASPIRIN 81 MG CHEWABLE TABLET PO SCH (08:18)
[2018-08-09] MEDS: ENOXAPARIN 40 MG/0.4 ML SQ SCH (08:19)
[2018-08-09] MEDS: INSULIN -REGULAR HUMAN 50 UNIT/0.5 ML ML SQ SCH ×3 (08:40→17:29)
[2018-08-09] MEDS: FUROSEMIDE 20 MG/ 2ML VIAL IV SCH (08:41)
--- NOTE | 2018-08-09 08:41 | P.PN ---
Subjective Date of Service: 08/09/18 Chief Complaint: COPD exacerbation Subjective: Improving (Patient is improving doing better no new complaints) Review of Systems Respiratory: Shortness of Breath Physical Examination - Vital Signs Temperature: 97.9 F Blood Pressure: 151/69 Pulse: 68 Respirations: 20 Pulse Ox (%): 97 - Physical Exam General: Alert, Oriented x3 Neck: Supple Respiratory: Clear to auscultation bilaterally, Expiratory wheezes Cardiovascular: No edema, Regular rate/rhythm, Normal S1 S2 Gastrointestinal: Normal bowel sounds, Soft and benign - Studies Medications List Reviewed: Yes Assessment & Plan - Problems (Diagnosis) (1) COPD with acute exacerbation Onset Date: 07/03/17 Current Visit: No Status: Acute Plan: Patient is 78 years of age admitted with COPD exacerbation is hypoxic hypercarbic patient has left ventricular hypertrophy he has Symbicort at home and discharged home on low-dose prednisone 10 mg twice a day for 7 days continue change to trilogy has oxygen at home to follow up with me in 2 weeks Discharge Plan: Home - Code Status/Comfort Care Code Status Assessed: Yes
[2018-08-09] MEDS ORDERED: predniSONE 10 MG TAB PO SCH (09:00)
[2018-08-09 09:19] VITALS: O2SAT 92
--- NOTE | 2018-08-09 17:25 | P.DS ---
Admission Date: 08/07/18 Discharge Date: 08/09/18 Disposition: ROUTINE DISCHARGE Discharge Condition: FAIR Reason for Admission: COPD exacerbation Consultations: Pulmonology - Problems (1) COPD with acute exacerbation Onset Date: 07/03/17 Current Visit: No Status: Acute (2) Diastolic CHF Current Visit: Yes Status: Acute Qualifiers: Heart failure chronicity: acute on chronic Qualified Code(s): I50.33 - Acute on chronic diastolic (congestive) heart failure (3) Pneumonia Current Visit: No Status: Acute Qualifiers: Pneumonia type: due to unspecified organism Laterality: unspecified laterality Lung location: unspecified part of lung Qualified Code(s): J18.9 - Pneumonia, unspecified organism (4) CAD (coronary artery disease) Onset Date: 07/03/17 Current Visit: No Status: Chronic Qualifiers: Coronary Disease-Associated Artery/Lesion type: [place] artery [place] vs. transplanted heart: [place] heart Associated angina: without angina Qualified Code(s): I25.10 - Atherosclerotic heart disease of [place] coronary artery without angina pectoris (5) DM2 (diabetes mellitus, type 2) Onset Date: 07/03/17 Current Visit: No Status: Chronic Qualifiers: Diabetes mellitus fci insulin use: without fci use Diabetes mellitus complication status: without complication Qualified Code(s): E11.9 - Type 2 diabetes mellitus without complications (6) Hyperlipidemia Current Visit: No Status: Chronic Qualifiers: Hyperlipidemia type: pure hypercholesterolemia Qualified Code(s): E78.00 - Pure hypercholesterolemia, unspecified; E78.0 - Pure hypercholesterolemia (7) Hypertension Current Visit: No Status: Chronic Qualifiers: Hypertension type: essential hypertension (8) Obesity Onset Date: 07/03/17 Current Visit: No Status: Chronic Qualifiers: Obesity type: due to excess calories Obesity classification: adult class 2 (BMI 35 - 39.9) Serious obesity comorbidity presence: with serious comorbidity Body mass index: BMI 35.0-35.9 Qualified Code(s): E66.01 - Morbid (severe) obesity due to excess calories; Z68.35 - Body mass index (BMI) 35.0-35.9, adult (9) GERD (gastroesophageal reflux disease) Current Visit: No Status: Suspected Qualifiers: Esophagitis presence: without esophagitis Qualified Code(s): K21.9 - Gastro -esophageal reflux disease without esophagitis Brief History of Present Illness: This is a 78-year-old male with significant past medical history of COPD, questionable CHF, who presented to the ED complaining of having 5 days worth of shortness of breath. Patient stated that his shortness of breath has progressively gotten worse and initially he was only short of breath with increased activity however now he short of breath even with light activity for right breast. Patient stated that he has not been able to lay flat for past couple of days as well. Patient denies having any fever chills nausea vomiting or any other associated symptoms. Patient has not seen his primary care doctor in a while however does continue to take his inhalers as prescribed and has medication as prescribed by PCP. In the ER patient had lab work and imaging done and was concerning for COPD exacerbation secondary to pneumonia and thus was admitted for further workup and treatment. Hospital Course: Overall during the hospital stay patient remained stable The patient was initially admitted to the hospital for acute respiratory distress most likely secondary to COPD exacerbation with possibility of CHF exacerbations well. Patient was started on DuoNeb, steroids initially was placed on BiPAP and was weaned off come lately to nasal cannula. Patient does use home oxygenation was weaned down to inappropriate number that he uses at home. Patient was also seen by pulmonology here in the hospital who agreed with the plan and stated the patient could be discharged home and 48 hr after DuoNeb therapy. Patient also had an echocardiogram done here in the hospital for evaluation of CHF and was found to have diastolic dysfunction. Patient was started on Lasix here in the hospital and had marked improvement in his symptoms after that. Patient was asked to follow up with cardiology outpatient to discuss the possibility of starting Lasix. Patient currently is taking lisinopril along with beta sally which is first-line therapy for diastolic dysfunction. The patient was also given a new prescription for his inhaler and then was discharged home under stable condition he was asked to follow up with primary care provider along with pulmonology and cardiology. Patient was continued on prednisone for total 5 days Vital Signs/Physical Exam: Temp Pulse Resp BP Pulse Ox 98.8 F 81 24 H 156/74 H 95 08/09/18 12:00 08/09/18 12:00 08/09/18 12:00 08/09/18 12:00 08/09/18 12:00 General: Alert, In no apparent distress HEENT: Atraumatic, PERRLA, EOMI Neck: Supple, JVD not distended Respiratory: Clear to auscultation bilaterally, Normal air movement Cardiovascular: Regular rate/rhythm, Normal S1 S2 Gastrointestinal: Normal bowel sounds, No tenderness Musculoskeletal: No tenderness Integumentary: No rashes Neurological: Normal speech, Normal tone, Normal affect Lymphatics: No axilla or inguinal lymphadenopathy Laboratory Data at Discharge: WBC 8.2 K/uL (4.3-10.9) D 08/09/18 04:25 Hgb 10.0 g/dL (13.6-17.9) L 08/09/18 04:25 Hct 30.4 % (39.6-49.0) L 08/09/18 04:25 Plt Count 331 K/uL (152-406) 08/09/18 04:25 Sodium 140 mmol/L (136-145) 08/09/18 04:25 Potassium 5.2 mmol/L (3.5-5.1) H 08/09/18 04:25 BUN 24 mg/dL (7-18) H 08/09/18 04:25 Creatinine 1.19 mg/dL (0.55-1.3) 08/09/18 04:25 Glucose 382 mg/dL (74-106) H 08/09/18 12:25 Total Bilirubin 0.3 mg/dL (0.2-1.0) 08/09/18 04:25 AST 13 U/L (15-37) L 08/09/18 04:25 ALT 22 U/L (12-78) 08/09/18 04:25 Alkaline Phosphatase 89 U/L (45-117) 08/09/18 04:25 Home Medications: Albuterol Inhaler [Ventolin Inhaler*] 2 puff IH PRN PRN 06/29/17 Aspirin 81 mg PO DAILY 06/29/17 Atorvastatin Calcium [Lipitor*] 10 mg PO BEDTIME 06/29/17 Metformin HCl [Metformin ER Osmotic] 1,000 mg PO BID 06/29/17 glipiZIDE [Glucotrol*] 5 mg PO DAILY 06/29/17 Lisinopril 5 mg PO BEDTIME 06/30/17 Cyanocobalamin (Vitamin B-12) [Vitamin B12] 1,000 mcg PO BID 08/07/18 Levothyroxine [Synthroid*] 1 tab PO [id number] 08/07/18 Fluticasone/Umeclidin/Vilanter [Trelegy Ellipta 100-62.5-25] 1 each IH DAILY #1 blst.w.dev 08/09/18 predniSONE [Deltasone*] 10 mg PO DAILY #7 tab 08/09/18 New Medications: Fluticasone/Umeclidin/Vilanter [Trelegy Ellipta 100-62.5-25] 1 each IH DAILY #1 blst.w.dev predniSONE [Deltasone*] 10 mg PO DAILY #7 tab Diet: Regular Activity: Ad renee Followup: Jonathan Mann MD [ACTIVE - CAN ADMIT] - 1-2 Weeks (Call to schedule an appointment)
[2018-08-09 18:01] VITALS: BP 131/67; TEMP 98.7
== END 2018-08-09 19:45 | disposition home or self-care (01) ==
LOC: ER 09:50 → ERHOLD 11:15 → 4TH 20:04
PROVIDERS: ADMIT Family Medicine; ATTEND Family Medicine
DX: J44.1 Chronic obstructive pulmonary disease with (acute) exacerbation (principal); J18.9 Pneumonia, unspecified organism; I25.10 Atherosclerotic heart disease of native coronary artery without angina pectoris; I50.33 Acute on chronic diastolic (congestive) heart failure; E11.9 Type 2 diabetes mellitus without complications; E78.00 Pure hypercholesterolemia, unspecified; I10 Essential (primary) hypertension; E66.01 Morbid (severe) obesity due to excess calories; Z68.35 Body mass index [BMI] 35.0-35.9, adult; Z71.3 Dietary counseling and surveillance; Z87.891 Personal history of nicotine dependence
CPT/HCPCS: 96365; 93005; 93306; 87040 ×2; 87070; 85025 ×3; 80048; 36415 ×2; 82947; 87205 ×2; 82962 ×7; 87077; 87186; 81003; 84484; 80053 ×2; 84145; 83880; 87804 ×2; 71045; 94640 ×2; 82805; 94760 ×4; 96375; 99285; 96366; J1940 ×3; J0456 ×2; J1650 ×3; J0696 ×2; J2930; G0378 ×2; J7512

== ENCOUNTER 2018-08-20 03:29 | Inpatient (IN) | payer OTHER ==
[2018-08-20 04:07] LABS: Arterial Blood Carboxyhemoglob 1.6 % (0-1.5); Blood Gas Oxyhemoglobin 50.6 % (94-97); Blood O2 Saturation 51.8 % (92-98.5)
[2018-08-20 04:16] LABS: Absolute Monocytes 0.6 K/uL (0.1-1.3); Absolute Neutrophil 5.5 K/uL (1.8-8.0); Basophils % 0.8 % (0-1.3); Eosinophils % 2.1 % (0-4.4); Hematocrit 31.1 % (39.6-49.0); Lymphocytes % 13.8 % (15.3-44.8); MPV 7.1 fL (7.6-11.3); Monocytes % 8.6 % (3.3-12.3)
[2018-08-20 04:18] LABS: Protime INR 1.02
[2018-08-20] MEDS ORDERED: FUROSEMIDE 100 MG/10 ML VIAL IV ONE (04:30)
[2018-08-20 04:35] LABS: Albumin 3.5 g/dL (3.4-5.0); Bilirubin Direct 0.1 mg/dL (0-0.2); Bilirubin Total 0.4 mg/dL (0.2-1.0); Magnesium 2.1 mg/dL (1.8-2.4); Potassium 4.2 mmol/L (3.5-5.1); Protein, Total 8.7 g/dL (6.4-8.2); Troponin (Emerg Dept Use Only) 0.09 ng/mL (0.0-0.045)
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
--- NOTE | 2018-08-20 05:41 | EDPHYS ---
Physician Documentation [facility] Name: José Manuel Ferguson Jr Age: 78 yrs Sex: Male : 1940 Arrival Date: 08/20/2018 Time: 03:33 Bed 6 Private MD: ED Physician Obi Bronson HPI: 08/20 05:04 This 78 yrs old Male presents to ER via Wheelchair with complaints of gs Breathing Difficulty. 05:04 The patient has shortness of breath at rest. Onset: The symptoms/episode began/occurred gs acutely, yesterday. Duration: The symptoms are continuous, and are markedly worse than the original presentation. The patient's shortness of breath is aggravated by exertion. Associated signs and symptoms: Pertinent negatives: fever, hemoptysis, loss of consciousness. Severity of symptoms: At their worst the symptoms were incapacitating in the emergency department the symptoms are unchanged. The patient has experienced similar episodes in the past, a few times. The patient has been recently been admitted at [facility], was discharged last week. Historical: - Allergies: 03:51 No Known Allergies; bb - Home Meds: 03:51 aspirin 81 mg Oral TbEC 1 tab once daily [Active]; atorvastatin 10 mg Oral tab nightly bb [Active]; glipizide 5 mg Oral tab [Active]; levothyroxine 25 mcg tab 1 tab once daily [Active]; lisinopril 5 mg Oral tab nightly [Active]; metformin 500 mg Oral tab 1 tab 2 times per day [Active]; ProAir HFA 90 mcg/actuation inhalation HFAA 2 puffs every 6 hours [Active]; Symbicort 80-4.5 mcg/actuation inhalation HFAA 2 puffs 2 times per day [Active]; - PMHx: 03:51 continuous home O2, 2L NC; COPD; Diabetes - NIDDM; High Cholesterol; Hypertension; bb - Immunization history:: Adult Immunizations up to date. - Social history:: Smoking status: Patient/guardian denies using tobacco, the patient reports quitting approximately 5 years ago. - Ebola Screening: : No symptoms or risks identified at this time. ROS: 05:04 All other systems are negative. gs Exam: 05:04 Head/Face: Normocephalic, atraumatic. Eyes: Pupils equal round and reactive to light, gs extra-ocular motions intact. Lids and lashes normal. Conjunctiva and sclera are non-icteric and not injected. Cornea within normal limits. Periorbital areas with no swelling, redness, or edema. ENT: Nares patent. No nasal discharge, no septal abnormalities noted. Tympanic membranes are normal and external auditory canals are clear. Oropharynx with no redness, swelling, or masses, exudates, or evidence of obstruction, uvula midline. Mucous membranes moist. Neck: Trachea midline, no thyromegaly or masses palpated, and no cervical lymphadenopathy. Supple, full range of motion without nuchal rigidity, or vertebral point tenderness. No Meningismus. Chest/axilla: Normal chest wall appearance and motion. Nontender with no deformity. No lesions are appreciated. Cardiovascular: Regular rate and rhythm with a normal S1 and S2. No gallops, murmurs, or rubs. Normal PMI, no JVD. No pulse deficits. Abdomen/GI: Soft, non-tender, with normal bowel sounds. No distension or tympany. No guarding or rebound. No evidence of tenderness throughout. Back: No spinal tenderness. No costovertebral tenderness. Full range of motion. MS/ Extremity: Pulses equal, no cyanosis. Neurovascular intact. Full, normal range of motion. Neuro: Awake and alert, GCS 15, oriented to person, place, time, and situation. Cranial nerves II-XII grossly intact. Motor strength 5/5 in all extremities. Sensory grossly intact. Cerebellar exam normal. Normal gait. 05:04 Constitutional: The patient appears alert, awake, in obvious distress, severely distressed. 05:04 Constitutional: The patient appears pale. 05:04 Respiratory: severe repiratory distress is noted, Respirations: tachypnea, Breath sounds: decreased breath sounds, are scattered. 05:04 ECG was reviewed by the Attending Physician. Vital Signs: 03:51 BP 145 / 67; Pulse 87; Resp 24 S; Temp 98.9(O); Pulse Ox 88% on 4 lpm NC; Weight 106.59 bb kg (R); Height 5 ft. 7 in. (170.18 cm) (R); Pain 0/10; 04:39 BP 126 / 58; Pulse 65; Resp 21; Pulse Ox 98% on BiPAP; tl2 06:07 BP 144 / 58; Pulse 61; Resp 22; Pulse Ox 100% on BiPAP; tl2 03:51 Body Mass Index 36.81 (106.59 kg, 170.18 cm) bb MDM: 03:50 Patient medically screened. 05:04 Differential diagnosis: Bronchitis CHF exacerbation, Chronic Obstructive Pulmonary gs Disease Myocardial Infarction. Data reviewed: vital signs, nurses notes, lab test result(s), EKG, radiologic studies. Response to treatment: the patient's symptoms have mildly improved after treatment, and as a result, I will admit patient. 08/20 03:59 Order name: Basic Metabolic Panel; Complete Time: 04:41 08/20 03:59 Order name: CBC with Diff; Complete Time: 04:41 08/20 03:59 Order name: LFT's; Complete Time: 04:41 08/20 03:59 Order name: Magnesium; Complete Time: 04:41 08/20 03:59 Order name: NT PRO-BNP; Complete Time: 04:41 08/20 03:59 Order name: PT-INR; Complete Time: 04:41 08/20 03:59 Order name: Troponin (emerg Dept Use Only); Complete Time: 04:41 08/20 03:59 Order name: XRAY Chest (1 view) 08/20 03:59 Order name: BIPAP 08/20 03:59 Order name: ABG; Complete Time: 04:41 08/20 04:06 Order name: Blood Culture Adult (2) tl2 08/20 06:28 Order name: Lactate EDHI 08/20 06:54 Order name: Procalcitonin EDHI 08/20 03:59 Order name: EKG; Complete Time: 04:01 08/20 03:59 Order name: Cardiac monitoring; Complete Time: 04:05 08/20 03:59 Order name: EKG - Nurse/Tech; Complete Time: 04:05 08/20 03:59 Order name: IV Saline Lock; Complete Time: 04:05 08/20 03:59 Order name: Labs collected and sent; Complete Time: 04:05 08/20 03:59 Order name: O2 Per Protocol; Complete Time: 04:05 08/20 03:59 Order name: O2 Sat Monitoring; Complete Time: 04:05 EC:04 Rate is 82 beats/min. Rhythm is regular. MN interval is prolonged. QRS interval is gs normal. QT interval is normal. T waves are Flattened. Clinical impression: NSR w/ Non-specific ST/T Changes. Interpreted by me. Administered Medications: 04:23 Drug: Lasix 60 mg Route: IVP; Site: right antecubital; tl2 06:55 Follow up: Response: No adverse reaction; No adverse reaction, 600 mL output tl2 Disposition: 05:04 Critical Care:. gs Disposition: 08/20/18 05:40 Hospitalization ordered by Vincent Tan for Inpatient Admission. Preliminary diagnosis is Acute respiratory failure with hypercapnia. - Bed requested for Telemetry/MedSurg (Inpatient). - Status is Inpatient Admission. tl2 - Condition is Stable. - Problem is an acute exacerbation. - Symptoms have improved. UTI on Admission? No Critical care time excluding procedures: 05:04 Critical care time: Bedside Care: 10 minutes, Consultation: 10 minutes, Family gs Intervention: 10 minutes. Total time: 30 minutes Signatures: Dispatcher [facility] EDHI Zohreh White RN RN Eri Dunlap RN RN Stacy Pfeiffer RN RN 2 Obi Bronson MD MD Corrections: (The following items were deleted from the chart) 05:51 05:40 Hospitalization Ordered by Vincent Tan MD for Inpatient Admission. Preliminary cg diagnosis is Acute respiratory failure with hypercapnia. Bed requested for Telemetry/MedSurg (Inpatient). Status is Inpatient Admission. Condition is Stable. Problem is an acute exacerbation. Symptoms have improved. UTI on Admission? No. 06:56 05:51 08/20/2018 05:40 Hospitalization Ordered by Vincent Tan MD for Inpatient tl2 Admission. Preliminary diagnosis is Acute respiratory failure with hypercapnia. Bed requested for Telemetry/MedSurg (Inpatient). Status is Inpatient Admission. Condition is Stable. Problem is an acute exacerbation. Symptoms have improved. UTI on Admission? No. cg
--- NOTE | 2018-08-20 05:41 | ER ---
Nurse's Notes [facility] Name: José Manuel Ferguson Jr Age: 78 yrs Sex: Male : 1940 Arrival Date: 08/20/2018 Time: 03:33 Bed 6 Private MD: Diagnosis: Acute respiratory failure with hypercapnia Presentation: 08/20 03:45 Presenting complaint: Patient states: he is having difficulty breathing was just bb discharged last week but has never felt any better and now it is worse. Transition of care: patient was not received from another setting of care. Onset of symptoms was August 18, 2018. Risk Assessment: Do you want to hurt yourself or someone else? Patient reports no desire to harm self or others. Initial Sepsis Screen: Does the patient meet any 2 criteria? RR > 20 per min. Does the patient have a suspected source of infection? No. Patient's initial sepsis screen is negative. Care prior to arrival: None. 03:45 Method Of Arrival: Wheelchair bb 03:45 Acuity: YUNI 2 bb Triage Assessment: 04:43 Respiratory: the patient has moderate shortness of breath. tl2 Historical: - Allergies: 03:51 No Known Allergies; bb - Home Meds: 03:51 aspirin 81 mg Oral TbEC 1 tab once daily [Active]; atorvastatin 10 mg Oral tab nightly bb [Active]; glipizide 5 mg Oral tab [Active]; levothyroxine 25 mcg tab 1 tab once daily [Active]; lisinopril 5 mg Oral tab nightly [Active]; metformin 500 mg Oral tab 1 tab 2 times per day [Active]; ProAir HFA 90 mcg/actuation inhalation HFAA 2 puffs every 6 hours [Active]; Symbicort 80-4.5 mcg/actuation inhalation HFAA 2 puffs 2 times per day [Active]; - PMHx: 03:51 continuous home O2, 2L NC; COPD; Diabetes - NIDDM; High Cholesterol; Hypertension; bb - Immunization history:: Adult Immunizations up to date. - Social history:: Smoking status: Patient/guardian denies using tobacco, the patient reports quitting approximately 5 years ago. - Ebola Screening: : No symptoms or risks identified at this time. Screenin:40 Abuse screen: Denies threats or abuse. Nutritional screening: No deficits noted. tl2 Tuberculosis screening: No symptoms or risk factors identified. Fall Risk IV access (20 points). Gait- Weak (10 pts.). Assessment: 04:00 General: Appears distressed, uncomfortable, Behavior is calm, cooperative, appropriate tl2 for age. Pain: Denies pain. Neuro: Level of Consciousness is awake, alert, obeys commands, Oriented to person, place, time, situation. Cardiovascular: Rhythm is sinus rhythm. Respiratory: Airway is patent Respiratory effort is labored, Respiratory pattern is symmetrical, tachypnea Breath sounds are coarse bilaterally. Breath sounds with wheezes. GI: No signs and/or symptoms were reported involving the gastrointestinal system. : No signs and/or symptoms were reported regarding the genitourinary system. Derm: Skin is pale. 04:43 Reassessment: Patient appears in no apparent distress at this time. Patient and/or tl2 family updated on plan of care and expected duration. Pain level reassessed. Patient is alert, oriented x 3, equal unlabored respirations, skin warm/dry/pink. pt states symptoms have improved with the BiPap, pt is tolerating well. 06:54 Reassessment: Patient appears in no apparent distress at this time. Patient and/or tl2 family updated on plan of care and expected duration. Pain level reassessed. Patient is alert, oriented x 3, equal unlabored respirations, skin warm/dry/pink. pt stable for transport to floor. Vital Signs: 03:51 BP 145 / 67; Pulse 87; Resp 24 S; Temp 98.9(O); Pulse Ox 88% on 4 lpm NC; Weight 106.59 bb kg (R); Height 5 ft. 7 in. (170.18 cm) (R); Pain 0/10; 04:39 BP 126 / 58; Pulse 65; Resp 21; Pulse Ox 98% on BiPAP; tl2 06:07 BP 144 / 58; Pulse 61; Resp 22; Pulse Ox 100% on BiPAP; tl2 03:51 Body Mass Index 36.81 (106.59 kg, 170.18 cm) ED Course: 03:33 Patient arrived in ED. es 03:43 Obi Bronson MD is Attending Physician. gs 03:50 Triage completed. bb 03:51 EKG done, by ED staff, reviewed by Obi Bronson MD. mt 03:51 Arm band placed on Patient placed in an exam room, on a stretcher, on pulse oximetry. bb EKG completed in triage. Results shown to MD. Family accompanied patient. RT called for Bipap. 03:52 Inserted saline lock: 22 gauge in right antecubital area, using aseptic technique. tl2 Blood collected. 04:06 BIPAP Sent. tl2 04:16 X-ray completed. Portable x-ray completed in exam room. Patient tolerated procedure kw well. 04:17 XRAY Chest (1 view) In Process Unspecified. EDMS 04:40 Patient has correct armband on for positive identification. Placed in gown. Bed in low tl2 position. Call light in reach. Side rails up X2. 05:38 Vincent Tan MD is Hospitalizing Provider. gs 06:54 Stacy Pfeiffer RN is Primary Nurse. tl2 06:54 No provider procedures requiring assistance completed. Patient admitted, IV remains in tl2 place. Administered Medications: 04:23 Drug: Lasix 60 mg Route: IVP; Site: right antecubital; tl2 06:55 Follow up: Response: No adverse reaction; No adverse reaction, 600 mL output tl2 Outcome: 05:40 Decision to Hospitalize by Provider. gs 06:54 Admitted to Tele accompanied by nurse, family with patient, via wheelchair, room 416, tl2 with oxygen, with chart, Report called to [facility] [place] 06:54 Condition: stable 06:54 Discharge instructions given to patient, family, Instructed on the need for admit. 06:56 Patient left the ED. tl2 Signatures: Dispatcher [employer] EDTiffany Orr Brenda, RN RN bb Whitley, Kimberlee kw Knox, Taylor, RN RN tl2 Tona Barnes mt, Gregory, MD MD
[2018-08-20] MEDS ORDERED: ONDANSETRON 4 MG/2 ML VIAL IV PRN (06:54)
[2018-08-20] MEDS ORDERED: IPRATROPIUM BROM 0.5MG/2.5ML NEB PRN (06:54)
[2018-08-20] MEDS ORDERED: ALBUTEROL 2.5 MG/3 ML NEB SOL NEB PRN (06:54)
[2018-08-20] MEDS ORDERED: METHYLPREDNISOLONE 125 MG INJ IV SCH (06:54)
[2018-08-20] MEDS: INSULIN -REGULAR HUMAN 50 UNIT/0.5 ML ML SQ SCH ×4 (07:30→21:39)
--- NOTE | 2018-08-20 07:44 | EKG ---
Test Date: 2018-08-20 Test Time: 03:46:04 [employer]: MARGOT MEASUREMENT RESULTS: Intervals: Rate: 82 NM: 242 QRSD: 82 QT: 380 QTc: 443 [place]: P: 86 NM: 242 QRS: 83 T: 126 INTERPRETIVE STATEMENTS: Sinus rhythm with 1st degree AV block with premature supraventricular complexes Nonspecific ST and T wave abnormality Abnormal ECG Compared to ECG 08/07/2018 10:14:21 Atrial premature complex(es) now present ST (T wave) deviation still present Electronically Signed On 08-20-18 07:42:49 CDT by Kings Becerra
[2018-08-20] MEDS: ENOXAPARIN 40 MG/0.4 ML SQ SCH (08:08)
--- NOTE | 2018-08-20 09:10 | RAD REPORT ---
EXAM DESCRIPTION: RAD - Chest Single View - 08/20/2018 4:25 am CLINICAL HISTORY: Difficulty breathing, shortness of breath COMPARISON: August 07 TECHNIQUE: AP portable chest image was obtained 0414 hours . FINDINGS: Interstitial and alveolar opacities are present in both lung bases, worse on the right. Pa ttern is similar to the August 17 study. Heart size is upper normal. Vasculature is mildly prominent . No measurable pleural effusion and no pneumothorax. No acute bony abnormality seen. No acute aortic findings suspected. IMPRESSION: Right base interstitial and alveolar opacification similar to the August 07 examination. Cardiomegaly and mild vascular engorgement suspicious for an early failure or volume overload.
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
[2018-08-20] MEDS: SPIRONOLACTONE 25 MG TABLET PO SCH ×2 (12:39→21:38)
[2018-08-20] MEDS: FUROSEMIDE 20 MG/ 2ML VIAL IV SCH ×2 (12:39→17:46)
[2018-08-20 12:58] LABS: Blood O2 Saturation 90.4 % (92-98.5)
[2018-08-20] MEDS: IPRATROPIUM BROM 0.5MG/2.5ML NEB SCH ×2 (13:27→19:42)
[2018-08-20] MEDS: METHYLPREDNISOLONE 40 MG INJ IV SCH (17:46)
[2018-08-20] MEDS: ARFORMOTEROL TARTRATE 15 MCG/2 ML VIAL.NEB NEB SCH (19:42)
[2018-08-21] MEDS: METHYLPREDNISOLONE 40 MG INJ IV SCH ×2 (00:17→08:09)
[2018-08-21] MEDS: IPRATROPIUM BROM 0.5MG/2.5ML NEB SCH ×4 (01:25→20:00)
[2018-08-21 05:12] LABS: Urine Appearance CLEAR; Urine Bilirubin NEGATIVE (NEG); Urine Blood NEGATIVE (NEG); Urine Color YELLOW; Urine Glucose 2+ (NEG); Urine Protein NEGATIVE (NEG); Urine Urobilinogen 0.2 mg/dL (0.2-1.0)
[2018-08-21 05:19] LABS: Urine Microscopic Reflex NO UMIC
[2018-08-21 05:46] LABS: Absolute Lymphocytes (CBC) 0.7 K/uL (0.7-4.9); Absolute Monocytes 0.2 K/uL (0.1-1.3); Absolute Neutrophil 4.9 K/uL (1.8-8.0); Basophils % 0.2 % (0-1.3); Hematocrit 30.5 % (39.6-49.0); Lymphocytes % 11.7 % (15.3-44.8); MPV 7.5 fL (7.6-11.3); RBC Red Blood Cell Count 3.68 M/uL (4.33-5.43)
[2018-08-21] MEDS: FUROSEMIDE 20 MG/ 2ML VIAL IV SCH (08:09)
[2018-08-21] MEDS: ENOXAPARIN 40 MG/0.4 ML SQ SCH (08:09)
[2018-08-21] MEDS: SPIRONOLACTONE 25 MG TABLET PO SCH ×2 (08:09→21:18)
[2018-08-21] MEDS: INSULIN -REGULAR HUMAN 50 UNIT/0.5 ML ML SQ SCH ×4 (08:10→21:19)
[2018-08-21] MEDS: ARFORMOTEROL TARTRATE 15 MCG/2 ML VIAL.NEB NEB SCH ×2 (08:30→20:00)
--- NOTE | 2018-08-21 11:42 | P.PN ---
Subjective Date of Service: 08/21/18 Chief Complaint: acute on chronic respiratory failure Subjective: Improving (Patient is doing much better tolerating BiPAP) Review of Systems General: Weakness Respiratory: Shortness of Breath Physical Examination - Vital Signs Temperature: 97.9 F Blood Pressure: 147/67 Pulse: 79 Respirations: 20 Pulse Ox (%): 90 - Physical Exam General: Alert, In no apparent distress, Oriented x3 Neck: Supple Respiratory: Clear to auscultation bilaterally, Diminished Cardiovascular: No edema, Regular rate/rhythm Assessment & Plan - Problems (Diagnosis) (1) Chronic respiratory failure Current Visit: Yes Status: Acute Plan: Patient is doing much better on a BiPAP he has chronic respiratory failure improving tolerating BiPAP saturation satisfactory labs reviewed is currently on diuretics change to p.o. Lasix at Dc IV Solu-Medrol at p.o. prednisone Qualifiers: Respiratory failure complication: hypoxia and hypercapnia Qualified Code(s) : J96.11 - Chronic respiratory failure with hypoxia; J96.12 - Chronic respiratory failure with hypercapnia
--- NOTE | 2018-08-21 12:12 | P.PN ---
Subjective Date of Service: 08/21/18 Chief Complaint: acute on chronic respiratory failure Pt seen and examined at bedside. Chart Reviewed. Pt this AM doing well however still lethargic and SOB. Unable to wear BIPAP all the time. Educated on the need to keep it on. Understands and states will try to keep it on. Review of Systems 10-point ROS is otherwise unremarkable Physical Examination - Vital Signs Temperature: 97.9 F Blood Pressure: 147/67 Pulse: 79 Respirations: 20 Pulse Ox (%): 90 - Physical Exam General: Alert, Oriented x3, Acute distress HEENT: Atraumatic, PERRLA, EOMI Neck: Supple, JVD not distended Respiratory: Normal air movement, Expiratory wheezes, Inspiratory wheezes Cardiovascular: Regular rate/rhythm, Normal S1 S2 Gastrointestinal: Normal bowel sounds, No tenderness Musculoskeletal: No tenderness Integumentary: No rashes Neurological: Normal speech, Normal tone, Normal affect Lymphatics: No axilla or inguinal lymphadenopathy - Studies Medications List Reviewed: Yes Assessment And Plan - Current Problems (Diagnosis) (1) Acute and chronic respiratory failure Onset Date: 10/17/16 Current Visit: No Status: Acute Plan: Acute on Chronic RF 2.2 to Hypercapnia. -Duonebs, BIPAP and steriods for now -Pulmonology consulted. Appreciated reccs -Will wean BIPAP as tolerated Qualifiers: Respiratory failure complication: hypoxia and hypercapnia Qualified Code(s) : J96.21 - Acute and chronic respiratory failure with hypoxia; J96.22 - Acute and chronic respiratory failure with hypercapnia (2) COPD with acute exacerbation Onset Date: 07/03/17 Current Visit: No Status: Acute (3) Diastolic CHF Current Visit: No Status: Acute Plan: Diastolic CHF on ECHO done 15 days ago -On Lasix and Spironolactone Qualifiers: Heart failure chronicity: acute on chronic Qualified Code(s): I50.33 - Acute on chronic diastolic (congestive) heart failure (4) CAD (coronary artery disease) Onset Date: 07/03/17 Current Visit: No Status: Chronic Qualifiers: Coronary Disease-Associated Artery/Lesion type: [place] artery [place] vs. 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 Diabetes mellitus complication status: without complication Qualified Code(s): E11.9 - Type 2 diabetes mellitus without complications (6) Hyperlipidemia Current Visit: No Status: Chronic Qualifiers: Hyperlipidemia type: pure hypercholesterolemia Qualified Code(s): E78.00 - Pure hypercholesterolemia, unspecified; E78.0 - Pure hypercholesterolemia (7) Hypertension Current Visit: No Status: Chronic Qualifiers: Hypertension type: essential hypertension (8) Obesity Onset Date: 07/03/17 Current Visit: No Status: Chronic Qualifiers: Obesity type: due to excess calories Obesity classification: adult class 2 (BMI 35 - 39.9) Serious obesity comorbidity presence: with serious comorbidity Body mass index: BMI 35.0-35.9 Qualified Code(s): E66.01 - Morbid (severe) obesity due to excess calories; Z68.35 - Body mass index (BMI) 35.0-35.9, adult (9) GERD (gastroesophageal reflux disease) Current Visit: No Status: Suspected Qualifiers: Esophagitis presence: without esophagitis Qualified Code(s): K21.9 - Gastro -esophageal reflux disease without esophagitis Discharge Plan: Home Plan to discharge in: Greater than 2 days - Code Status/Comfort Care Code Status Assessed: Yes Critical Care: No
[2018-08-21] MEDS ORDERED: methylPREDNISolone 4 MG TAB PO SCH (21:00)
[2018-08-22] MEDS: IPRATROPIUM BROM 0.5MG/2.5ML NEB SCH ×4 (01:20→20:05)
[2018-08-22] MEDS: ARFORMOTEROL TARTRATE 15 MCG/2 ML VIAL.NEB NEB SCH ×2 (07:45→20:05)
--- NOTE | 2018-08-22 08:50 | P.PN ---
Subjective Date of Service: 08/22/18 Chief Complaint: acute on chronic respiratory failure Subjective: Improving (Patient is doing much better claims that BiPAP really helps him no other complaints) Review of Systems Unremarkable Physical Examination - Vital Signs Temperature: 98.3 F Blood Pressure: 165/73 Pulse: 56 Respirations: 20 Pulse Ox (%): 93 - Physical Exam General: Alert, Oriented x3 Respiratory: Clear to auscultation bilaterally Cardiovascular: No edema, Normal S1 S2 - Studies Medications List Reviewed: Yes Assessment & Plan - Problems (Diagnosis) (1) Chronic respiratory failure Current Visit: Yes Status: Acute Plan: Patient admitted with chronic respiratory failure the qualify for noninvasive ventilator blood sugar is elevated reduce the dose of steroids possible discharge labs reviewed follow up with me in 2 weeks Qualifiers: Respiratory failure complication: hypoxia and hypercapnia Qualified Code(s) : J96.11 - Chronic respiratory failure with hypoxia; J96.12 - Chronic respiratory failure with hypercapnia
[2018-08-22] MEDS ORDERED: predniSONE 10 MG TAB PO SCH (09:00)
[2018-08-22 09:20] LABS: Absolute Lymphocytes (CBC) 1.2 K/uL (0.7-4.9); Absolute Monocytes 0.7 K/uL (0.1-1.3); Absolute Neutrophil 6.3 K/uL (1.8-8.0); Basophils % 0.7 % (0-1.3); Eosinophils % 0.5 % (0-4.4); Hematocrit 29.9 % (39.6-49.0); Lymphocytes % 14.9 % (15.3-44.8); MPV 7.4 fL (7.6-11.3); Monocytes % 8.6 % (3.3-12.3)
[2018-08-22] MEDS: ENOXAPARIN 40 MG/0.4 ML SQ SCH (09:33)
[2018-08-22] MEDS: FUROSEMIDE 40 MG TABLET PO SCH (09:33)
[2018-08-22] MEDS: INSULIN -REGULAR HUMAN 50 UNIT/0.5 ML ML SQ SCH ×5 (09:34→20:56)
[2018-08-22] MEDS: SPIRONOLACTONE 25 MG TABLET PO SCH ×2 (09:34→20:55)
[2018-08-22 09:36] LABS: Albumin 3.3 g/dL (3.4-5.0); Bilirubin Total 0.3 mg/dL (0.2-1.0); Potassium 4.1 mmol/L (3.5-5.1); Protein, Total 8.2 g/dL (6.4-8.2)
[2018-08-22 09:53] LABS: Arterial Blood Carboxyhemoglob 1.7 % (0-1.5); Blood Gas Oxyhemoglobin 91.4 % (94-97); Blood O2 Saturation 93.6 % (92-98.5)
--- NOTE | 2018-08-22 10:24 | P.PN ---
Subjective Date of Service: 08/22/18 Chief Complaint: acute on chronic respiratory failure Pt seen and examined at bedside. Chart Reviewed. Pt this AM doing well. Off the BIPAP and on NC. Denies Fever, Chills, SOB or CP. Review of Systems 10-point ROS is otherwise unremarkable Physical Examination - Vital Signs Temperature: 98.3 F Blood Pressure: 165/73 Pulse: 56 Respirations: 20 Pulse Ox (%): 93 - Physical Exam General: Alert, In no apparent distress HEENT: Atraumatic, PERRLA, EOMI Neck: Supple, JVD not distended Respiratory: Normal air movement, Expiratory wheezes, Inspiratory wheezes Cardiovascular: Regular rate/rhythm, Normal S1 S2 Gastrointestinal: Normal bowel sounds, No tenderness Musculoskeletal: No tenderness Integumentary: No rashes Neurological: Normal speech, Normal tone, Normal affect Lymphatics: No axilla or inguinal lymphadenopathy - Studies Medications List Reviewed: Yes Assessment And Plan - Current Problems (Diagnosis) (1) Acute and chronic respiratory failure Onset Date: 10/17/16 Current Visit: No Status: Acute Plan: Acute on Chronic RF 2.2 to Hypercapnia. Acute Phase now Resolved -Duonebs, BIPAP PRN and steriods PO for now -Pulmonology consulted. Appreciated [facility] - consult For Home O2 Qualifiers: Respiratory failure complication: hypoxia and hypercapnia Qualified Code(s) : J96.21 - Acute and chronic respiratory failure with hypoxia; J96.22 - Acute and chronic respiratory failure with hypercapnia (2) COPD with acute exacerbation Onset Date: 07/03/17 Current Visit: No Status: Acute Plan: COPD with hypercapnia. Acute phase now resolved -Duonebs, Oxygen via NC and PO steroids (3) Diastolic CHF Current Visit: No Status: Acute Plan: Diastolic CHF on ECHO done 15 days ago -On Lasix and Spironolactone Qualifiers: Heart failure chronicity: acute on chronic Qualified Code(s): I50.33 - Acute on chronic diastolic (congestive) heart failure (4) CAD (coronary artery disease) Onset Date: 07/03/17 Current Visit: No Status: Chronic Qualifiers: Coronary Disease-Associated Artery/Lesion type: [place] artery [place] vs. 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 use Diabetes mellitus complication status: without complication Qualified Code(s): E11.9 - Type 2 diabetes mellitus without complications (6) Hyperlipidemia Current Visit: No Status: Chronic Qualifiers: Hyperlipidemia type: pure hypercholesterolemia Qualified Code(s): E78.00 - Pure hypercholesterolemia, unspecified; E78.0 - Pure hypercholesterolemia (7) Hypertension Current Visit: No Status: Chronic Qualifiers: Hypertension type: essential hypertension (8) Obesity Onset Date: 07/03/17 Current Visit: No Status: Chronic Qualifiers: Obesity type: due to excess calories Obesity classification: adult class 2 (BMI 35 - 39.9) Serious obesity comorbidity presence: with serious comorbidity Body mass index: BMI 35.0-35.9 Qualified Code(s): E66.01 - Morbid (severe) obesity due to excess calories; Z68.35 - Body mass index (BMI) 35.0-35.9, adult (9) GERD (gastroesophageal reflux disease) Current Visit: No Status: Suspected Qualifiers: Esophagitis presence: without esophagitis Qualified Code(s): K21.9 - Gastro -esophageal reflux disease without esophagitis Discharge Plan: Home Plan to discharge in: Greater than 2 days - Code Status/Comfort Care Code Status Assessed: Yes Critical Care: No
[2018-08-22] MEDS: methylPREDNISolone 4 MG TAB PO SCH ×2 (13:58→20:55)
[2018-08-22] MEDS ORDERED: D50W 25 GM/50 ML SYRINGE IV PRN (16:10)
[2018-08-22] MEDS ORDERED: GLUCAGON 1 MG/VIAL IM PRN (16:10)
[2018-08-22] MEDS: LISINOPRIL 5 MG TAB PO SCH (20:55)
[2018-08-22] MEDS: ATORVASTATIN 10 MG TAB PO SCH (20:56)
[2018-08-22] MEDS: CYANOCOBALAMIN 1,000 MCG TAB PO SCH (20:56)
[2018-08-23] MEDS: IPRATROPIUM BROM 0.5MG/2.5ML NEB SCH ×4 (02:35→20:00)
[2018-08-23 05:05] LABS: Absolute Lymphocytes (CBC) 0.8 K/uL (0.7-4.9); Absolute Monocytes 0.5 K/uL (0.1-1.3); Absolute Neutrophil 4.6 K/uL (1.8-8.0); Basophils % 0.3 % (0-1.3); Eosinophils % 0.9 % (0-4.4); Hematocrit 28.7 % (39.6-49.0); MPV 7.5 fL (7.6-11.3); RBC Red Blood Cell Count 3.46 M/uL (4.33-5.43)
[2018-08-23 05:27] LABS: Albumin 3.1 g/dL (3.4-5.0); Bilirubin Total 0.3 mg/dL (0.2-1.0); Potassium 4.1 mmol/L (3.5-5.1); Protein, Total 7.7 g/dL (6.4-8.2)
[2018-08-23] MEDS: LEVOTHYROXINE SOD 0.05 MG TABLET PO SCH (06:00)
[2018-08-23 06:13] VITALS: BMI 35.2
[2018-08-23] MEDS: ARFORMOTEROL TARTRATE 15 MCG/2 ML VIAL.NEB NEB SCH ×2 (07:35→20:00)
[2018-08-23] MEDS: SPIRONOLACTONE 25 MG TABLET PO SCH ×2 (08:37→20:55)
[2018-08-23] MEDS: CYANOCOBALAMIN 1,000 MCG TAB PO SCH ×2 (08:37→20:56)
[2018-08-23] MEDS: FUROSEMIDE 40 MG TABLET PO SCH (08:37)
[2018-08-23] MEDS: ASPIRIN 81 MG CHEWABLE TABLET PO SCH (08:37)
[2018-08-23] MEDS: ENOXAPARIN 40 MG/0.4 ML SQ SCH (08:37)
[2018-08-23] MEDS: methylPREDNISolone 4 MG TAB PO SCH ×2 (08:37→20:55)
[2018-08-23] MEDS: INSULIN -REGULAR HUMAN 50 UNIT/0.5 ML ML SQ SCH ×4 (08:38→20:54)
--- NOTE | 2018-08-23 12:42 | P.DS ---
Admission Date: 08/20/18 Discharge Date: 08/23/18 Disposition: ROUTINE DISCHARGE Discharge Condition: FAIR Reason for Admission: acute on chronic respiratory failure Consultations: Pulmonology - Problems (1) Klebsiella pneumonia Current Visit: Yes Status: Acute Qualifiers: Laterality: unspecified laterality Lung location: unspecified part of lung Qualified Code(s): J15.0 - Pneumonia due to Klebsiella pneumoniae (2) Acute and chronic respiratory failure Onset Date: 10/17/16 Current Visit: No Status: Acute Qualifiers: Respiratory failure complication: hypoxia and hypercapnia Qualified Code(s) : J96.21 - Acute and chronic respiratory failure with hypoxia; J96.22 - Acute and chronic respiratory failure with hypercapnia (3) COPD with acute exacerbation Onset Date: 07/03/17 Current Visit: No Status: Acute (4) Diastolic CHF Current Visit: No Status: Acute Qualifiers: Heart failure chronicity: acute on chronic Qualified Code(s): I50.33 - Acute on chronic diastolic (congestive) heart failure (5) CAD (coronary artery disease) Onset Date: 07/03/17 Current Visit: No Status: Chronic Qualifiers: Coronary Disease-Associated Artery/Lesion type: [place] artery [place] vs. transplanted heart: [place] heart Associated angina: without angina Qualified Code(s): I25.10 - Atherosclerotic heart disease of [place] coronary artery without angina pectoris (6) DM2 (diabetes mellitus, type 2) Onset Date: 07/03/17 Current Visit: No Status: Chronic Qualifiers: Diabetes mellitus mcfp insulin use: without mcfp use Diabetes mellitus complication status: without complication Qualified Code(s): E11.9 - Type 2 diabetes mellitus without complications (7) Hyperlipidemia Current Visit: No Status: Chronic Qualifiers: Hyperlipidemia type: pure hypercholesterolemia Qualified Code(s): E78.00 - Pure hypercholesterolemia, unspecified; E78.0 - Pure hypercholesterolemia (8) Hypertension Current Visit: No Status: Chronic Qualifiers: Hypertension type: essential hypertension (9) Obesity Onset Date: 07/03/17 Current Visit: No Status: Chronic Qualifiers: Obesity type: due to excess calories Obesity classification: adult class 2 (BMI 35 - 39.9) Serious obesity comorbidity presence: with serious comorbidity Body mass index: BMI 35.0-35.9 Qualified Code(s): E66.01 - Morbid (severe) obesity due to excess calories; Z68.35 - Body mass index (BMI) 35.0-35.9, adult (10) GERD (gastroesophageal reflux disease) Current Visit: No Status: Suspected Qualifiers: Esophagitis presence: without esophagitis Qualified Code(s): K21.9 - Gastro -esophageal reflux disease without esophagitis Brief History of Present Illness: See HPI Hospital Course: Overall during the hospital stay patient remained stable The patient was initially admitted to the hospital for acute respiratory distress most likely secondary to COPD exacerbation with possibility of CHF exacerbations 2.2 PNA. lab work and Imaging was done. Culture were collected. Patient was started on DuoNeb, steroids and BiPAP and was weaned off to nasal cannula. Had marked improvement in his symptoms. Patient does use home oxygenation and was weaned down to appropriate number that he uses at home. Patient was also seen by pulmonology here in the hospital who agreed with the plan and stated the patient could be discharged home. Pt was also started on lasix and Sprinolactone for CHF. Pt also has BB and JOHNY that was started on here. Pt again had marked improvement. Pt's sputum culture was + for Klebseilla and thus was started on PO levaquin. Once pt was doing well overall, saturating well and ambulating, he was DC home under stable condition. Patient was asked to follow up with cardiology and pulmonology once DC from hospital. Pt already has oxygen arranged from the [facility] and is now working on getting NIPPV at the [facility]. Vital Signs/Physical Exam: Temp Pulse Resp BP Pulse Ox 98.7 F 71 20 174/74 H 95 08/23/18 08:00 08/23/18 08:37 08/23/18 08:00 08/23/18 08:37 08/23/18 08:00 General: Alert, In no apparent distress, Oriented x3 HEENT: Atraumatic, PERRLA, EOMI Neck: Supple, JVD not distended Respiratory: Normal air movement, Expiratory wheezes, Inspiratory wheezes Cardiovascular: Regular rate/rhythm, Normal S1 S2 Gastrointestinal: Normal bowel sounds, No tenderness Musculoskeletal: No tenderness Integumentary: No rashes Neurological: Normal speech, Normal tone, Normal affect Lymphatics: No axilla or inguinal lymphadenopathy Laboratory Data at Discharge: WBC 6.0 K/uL (4.3-10.9) D 08/23/18 04:25 Hgb 9.5 g/dL (13.6-17.9) L 08/23/18 04:25 Hct 28.7 % (39.6-49.0) L 08/23/18 04:25 Plt Count 248 K/uL (152-406) 08/23/18 04:25 PT 12.0 SECONDS (9.5-12.5) 08/20/18 04:00 INR 1.02 08/20/18 04:00 Sodium 139 mmol/L (136-145) 08/23/18 04:25 Potassium 4.1 mmol/L (3.5-5.1) 08/23/18 04:25 BUN 28 mg/dL (7-18) H 08/23/18 04:25 Creatinine 1.26 mg/dL (0.55-1.3) 08/23/18 04:25 Glucose 274 mg/dL (74-106) H 08/23/18 04:25 Magnesium 2.1 mg/dL (1.8-2.4) 08/20/18 04:00 Total Bilirubin 0.3 mg/dL (0.2-1.0) 08/23/18 04:25 AST 16 U/L (15-37) 08/23/18 04:25 ALT 31 U/L (12-78) 08/23/18 04:25 Alkaline Phosphatase 80 U/L (45-117) 08/23/18 04:25 Home Medications: Albuterol Inhaler [Ventolin Inhaler*] 2 puff IH Q6H PRN 06/29/17 Aspirin 81 mg PO DAILY 06/29/17 Atorvastatin Calcium [Lipitor*] 10 mg PO BEDTIME 06/29/17 Metformin HCl [Metformin ER Osmotic] 1,000 mg PO BID 06/29/17 glipiZIDE [Glucotrol*] 5 mg PO DAILY 06/29/17 Lisinopril 5 mg PO BEDTIME 06/30/17 Cyanocobalamin (Vitamin B-12) [Vitamin B12] 1,000 mcg PO BID 08/07/18 Levothyroxine [Synthroid*] 1 tab PO [id number] 08/07/18 Fluticasone/Umeclidin/Vilanter [Trelegy Ellipta 100-62.5-25] 1 each IH DAILY #1 blst.w.dev 08/09/18 predniSONE [Deltasone*] 10 mg PO DAILY #7 tab 08/09/18 Furosemide [Lasix*] 40 mg PO DAILY #30 tab 08/23/18 levoFLOXacin [Levaquin] 500 mg PO DAILY #7 tab 08/23/18 New Medications: Furosemide [Lasix*] 40 mg PO DAILY #30 tab levoFLOXacin [Levaquin] 500 mg PO DAILY #7 tab Patient Discharge Instructions: Please f.u with PCP and Dr Altamirano in 1 to 2 week post discharge. New medication. Levaquin 500mg Daily for 7 days. Lasix 40mg daily. Prednisone 10mg daily Diet: Regular Activity: Ad renee Followup: Jonathan Mann MD [ACTIVE - CAN ADMIT] - 1 Week
[2018-08-23] MEDS: LISINOPRIL 5 MG TAB PO SCH (20:55)
[2018-08-23] MEDS: ATORVASTATIN 10 MG TAB PO SCH (20:55)
[2018-08-24] MEDS: IPRATROPIUM BROM 0.5MG/2.5ML NEB SCH ×3 (02:00→13:27)
[2018-08-24] MEDS: LEVOTHYROXINE SOD 0.05 MG TABLET PO SCH (05:23)
[2018-08-24 06:24] LABS: Absolute Lymphocytes (CBC) 1.1 K/uL (0.7-4.9); Absolute Monocytes 0.6 K/uL (0.1-1.3); Absolute Neutrophil 4.2 K/uL (1.8-8.0); Basophils % 0.2 % (0-1.3); Eosinophils % 2.3 % (0-4.4); Lymphocytes % 18.4 % (15.3-44.8); MPV 7.6 fL (7.6-11.3); Monocytes % 9.1 % (3.3-12.3); RBC Red Blood Cell Count 3.73 M/uL (4.33-5.43)
[2018-08-24 06:42] LABS: Albumin 3.2 g/dL (3.4-5.0); Bilirubin Total 0.3 mg/dL (0.2-1.0); Potassium 3.8 mmol/L (3.5-5.1); Protein, Total 7.9 g/dL (6.4-8.2)
[2018-08-24] MEDS: ARFORMOTEROL TARTRATE 15 MCG/2 ML VIAL.NEB NEB SCH (07:44)
[2018-08-24] MEDS: INSULIN -REGULAR HUMAN 50 UNIT/0.5 ML ML SQ SCH ×3 (08:22→16:45)
[2018-08-24] MEDS: methylPREDNISolone 4 MG TAB PO SCH (08:23)
[2018-08-24] MEDS: SPIRONOLACTONE 25 MG TABLET PO SCH (08:23)
[2018-08-24] MEDS: ASPIRIN 81 MG CHEWABLE TABLET PO SCH (08:24)
[2018-08-24] MEDS: FUROSEMIDE 40 MG TABLET PO SCH (08:24)
[2018-08-24] MEDS: CYANOCOBALAMIN 1,000 MCG TAB PO SCH (08:24)
[2018-08-24] MEDS: ENOXAPARIN 40 MG/0.4 ML SQ SCH (08:24)
[2018-08-24] MEDS ORDERED: POTASSIUM CL SA 10 MEQ TAB PO ONE (09:00)
--- NOTE | 2018-08-24 12:29 | P.PN ---
Subjective Date of Service: 08/24/18 Chief Complaint: acute on chronic respiratory failure Pt seen and examined at bedside. Chart Reviewed. Pt this AM doing well. Off the BIPAP and on NC. Denies Fever, Chills, SOB or CP. Review of Systems 10-point ROS is otherwise unremarkable Physical Examination - Vital Signs Temperature: 98.4 F Blood Pressure: 172/72 Pulse: 64 Respirations: 16 Pulse Ox (%): 99 - Physical Exam General: Alert, In no apparent distress HEENT: Atraumatic, PERRLA, EOMI Neck: Supple, JVD not distended Respiratory: Clear to auscultation bilaterally, Normal air movement Cardiovascular: Regular rate/rhythm, Normal S1 S2 Gastrointestinal: Normal bowel sounds, No tenderness Musculoskeletal: No tenderness Integumentary: No rashes Neurological: Normal speech, Normal tone, Normal affect Lymphatics: No axilla or inguinal lymphadenopathy - Studies Medications List Reviewed: Yes Assessment And Plan - Current Problems (Diagnosis) (1) Klebsiella pneumonia Current Visit: Yes Status: Acute Qualifiers: Laterality: unspecified laterality Lung location: unspecified part of lung Qualified Code(s): J15.0 - Pneumonia due to Klebsiella pneumoniae (2) Acute and chronic respiratory failure Onset Date: 10/17/16 Current Visit: No Status: Acute Plan: Acute on Chronic RF 2.2 to Hypercapnia. Acute Phase now Resolved -Duonebs, BIPAP PRN and steriods PO for now -Pulmonology consulted. Appreciated reccs -NIPPV arranged with [facility] now to prevent readmission due to Chronic Respiratory failure. Qualifiers: Respiratory failure complication: hypoxia and hypercapnia Qualified Code(s) : J96.21 - Acute and chronic respiratory failure with hypoxia; J96.22 - Acute and chronic respiratory failure with hypercapnia (3) COPD with acute exacerbation Onset Date: 07/03/17 Current Visit: No Status: Acute Plan: COPD with hypercapnia. Acute phase now resolved -Duonebs, BIPAP PRN and PO steroids (4) Diastolic CHF Current Visit: No Status: Acute Plan: Diastolic CHF on ECHO done 15 days ago -On Lasix and Spironolactone Qualifiers: Heart failure chronicity: acute on chronic Qualified Code(s): I50.33 - Acute on chronic diastolic (congestive) heart failure (5) CAD (coronary artery disease) Onset Date: 07/03/17 Current Visit: No Status: Chronic Qualifiers: Coronary Disease-Associated Artery/Lesion type: [place] artery [place] vs. transplanted heart: [place] heart Associated angina: without angina Qualified Code(s): I25.10 - Atherosclerotic heart disease of [place] coronary artery without angina pectoris (6) DM2 (diabetes mellitus, type 2) Onset Date: 07/03/17 Current Visit: No Status: Chronic Qualifiers: Diabetes mellitus terminal supervisor insulin use: without penitentiary use Diabetes mellitus complication status: without complication Qualified Code(s): E11.9 - Type 2 diabetes mellitus without complications (7) Hyperlipidemia Current Visit: No Status: Chronic Qualifiers: Hyperlipidemia type: pure hypercholesterolemia Qualified Code(s): E78.00 - Pure hypercholesterolemia, unspecified; E78.0 - Pure hypercholesterolemia (8) Hypertension Current Visit: No Status: Chronic Qualifiers: Hypertension type: essential hypertension (9) Obesity Onset Date: 07/03/17 Current Visit: No Status: Chronic Qualifiers: Obesity type: due to excess calories Obesity classification: adult class 2 (BMI 35 - 39.9) Serious obesity comorbidity presence: with serious comorbidity Body mass index: BMI 35.0-35.9 Qualified Code(s): E66.01 - Morbid (severe) obesity due to excess calories; Z68.35 - Body mass index (BMI) 35.0-35.9, adult (10) GERD (gastroesophageal reflux disease) Current Visit: No Status: Suspected Qualifiers: Esophagitis presence: without esophagitis Qualified Code(s): K21.9 - Gastro -esophageal reflux disease without esophagitis - Plan DC once NIPPV delivered to the home. Discharge Plan: Home Plan to discharge in: 24 Hours - Code Status/Comfort Care Code Status Assessed: Yes Critical Care: No
[2018-08-24 13:39] VITALS: O2SAT 95
[2018-08-24 16:46] VITALS: BP 145/76; TEMP 97.5
== END 2018-08-24 18:15 | disposition home health service (06) | DRG 189 ==
LOC: ER 03:29 → ERHOLD 05:26 → 4TH 06:05
PROVIDERS: ADMIT Internal Medicine; ATTEND Family Medicine
PROC: 5A09457 Assistance with Respiratory Ventilation, 24-96 Consecutive Hours, Continuous Positive Airway Pressure (ICD-10-PCS; principal; 2018-08-20)
DX: J96.22 Acute and chronic respiratory failure with hypercapnia (principal); I50.33 Acute on chronic diastolic (congestive) heart failure; J15.0 Pneumonia due to Klebsiella pneumoniae; J44.1 Chronic obstructive pulmonary disease with (acute) exacerbation; J96.21 Acute and chronic respiratory failure with hypoxia; E11.9 Type 2 diabetes mellitus without complications; I11.0 Hypertensive heart disease with heart failure; I25.10 Atherosclerotic heart disease of native coronary artery without angina pectoris; E78.00 Pure hypercholesterolemia, unspecified; E66.09 Other obesity due to excess calories; K21.9 Gastro-esophageal reflux disease without esophagitis; Z68.35 Body mass index [BMI] 35.0-35.9, adult; Z99.81 Dependence on supplemental oxygen; Z79.84 Long term (current) use of oral hypoglycemic drugs; Z79.82 Long term (current) use of aspirin; Z79.51 Long term (current) use of inhaled steroids; Z79.52 Long term (current) use of systemic steroids; Z87.891 Personal history of nicotine dependence
CPT/HCPCS: 36415; 71045; 80048; 80053; 80076; 81003; 82805; 82947; 82962; 83605; 83735; 83880; 84145; 84484; 85025; 85610; 87040; 93005; 94640; 94660; 94760; 96374; 99285; J1650; J1940; J2920; J2930; J7509; J7605

== ENCOUNTER 2018-09-27 04:33 | Inpatient (IN) | payer OTHER ==
[2018-09-27] MEDS ORDERED: LEVALBUTEROL 1.25 MG/3 ML NEB ONE (05:00)
[2018-09-27] MEDS ORDERED: IPRATROPIUM BROM 0.5MG/2.5ML ONE (05:00)
[2018-09-27 05:08] LABS: Absolute Lymphocytes (CBC) 0.8 K/uL (0.7-4.9); Absolute Monocytes 0.7 K/uL (0.1-1.3); Absolute Neutrophil 4.4 K/uL (1.8-8.0); Basophils % 0.5 % (0-1.3); Hematocrit 29.5 % (39.6-49.0); Lymphocytes % 13.7 % (15.3-44.8); MPV 6.9 fL (7.6-11.3); Monocytes % 11.1 % (3.3-12.3); RBC Red Blood Cell Count 3.65 M/uL (4.33-5.43)
[2018-09-27] MEDS ORDERED: METHYLPREDNISOLONE 125 MG INJ ONE (05:18)
[2018-09-27 05:26] LABS: Potassium 4.3 mmol/L (3.5-5.1); Troponin (Emerg Dept Use Only) 0.19 ng/mL (0.0-0.045)
[2018-09-27 05:56] LABS: Arterial Blood Carboxyhemoglob 1.9 % (0-1.5); Blood Gas Oxyhemoglobin 94.2 % (94-97); Blood O2 Saturation 96.8 % (92-98.5)
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
--- NOTE | 2018-09-27 06:20 | ER ---
Nurse's Notes [facility] Name: José Manuel Ferguson Jr Age: 78 yrs Sex: Male : 1940 Arrival Date: 09/27/2018 Time: 04:35 Bed 3 Private MD: Diagnosis: Hypoxemia;Chronic obstructive pulmonary disease with (acute) exacerbation;Pulmonary edema;Acidosis Presentation: 09/27 04:42 Presenting complaint: EMS states: His family called because he was not responsive to ed1 them. We got him in the back of the ambulance and he started to come around. Transition of care: patient was not received from another setting of care. Onset of symptoms was September 27, 2018. Risk Assessment: Do you want to hurt yourself or someone else? Patient reports no desire to harm self or others. Initial Sepsis Screen: Does the patient meet any 2 criteria? No. Patient's initial sepsis screen is negative. Does the patient have a suspected source of infection? No. Patient's initial sepsis screen is negative. Care prior to arrival: Glucose check: 157 Oxygen administered. via nasal cannula. 04:42 Method Of Arrival: EMS: [facility] ed1 04:42 Acuity: YUNI 1 ed1 Triage Assessment: 04:46 General: Appears distressed, Behavior is calm, cooperative. Pain: Denies pain. EENT: ed1 Oral mucosa is moist. Poor dentition noted. Neuro: Level of Consciousness is awake, alert, obeys commands, Oriented to person, place, time, situation. Cardiovascular: Denies chest pain, Heart tones S1 S2 present. Respiratory: Reports shortness of breath at rest air hunger Airway is patent Respiratory effort is even, labored, Respiratory pattern is tachypnea Onset: The symptoms/episode began/occurred gradually, the patient has severe shortness of breath. GI: No signs and/or symptoms were reported involving the gastrointestinal system. : No signs and/or symptoms were reported regarding the genitourinary system. Derm: Skin is intact, is healthy with good turgor, Skin is dry, Skin is normal, Skin temperature is warm. Musculoskeletal: Circulation, motion, and sensation intact. Range of motion: intact in all extremities. Historical: - Allergies: 04:46 No Known Allergies; ed1 - Home Meds: 04:46 ProAir HFA 90 mcg/actuation inhalation HFAA 2 puffs every 6 hours [Active]; aspirin 81 ed1 mg Oral TbEC 1 tab once daily [Active]; atorvastatin 10 mg Oral tab nightly [Active]; Lasix Oral [Active]; glipizide 5 mg Oral tab [Active]; levothyroxine 25 mcg tab 1 tab once daily [Active]; lisinopril 5 mg Oral tab nightly [Active]; metformin 500 mg Oral tab 1 tab 2 times per day [Active]; Symbicort 80-4.5 mcg/actuation inhalation HFAA 2 puffs 2 times per day [Active]; spironolactone Oral [Active]; - PMHx: 04:46 continuous home O2, 2L NC; COPD; Diabetes - NIDDM; High Cholesterol; Hypertension; ed1 - PSHx: 04:46 Unable to obtain; ed1 - Immunization history:: Adult Immunizations unknown. - Social history:: Smoking status: unknown. - Ebola Screening: : Patient negative for fever greater than or equal to 101.5 degrees Fahrenheit, and additional compatible Ebola Virus Disease symptoms Patient denies exposure to infectious person Patient denies travel to an Ebola-affected area in the 21 days before illness onset No symptoms or risks identified at this time. Screenin:50 Abuse screen: Denies threats or abuse. Denies injuries from another. Nutritional ed1 screening: No deficits noted. Tuberculosis screening: No symptoms or risk factors identified. Fall Risk No fall in past 12 months (0 pts). No secondary diagnosis (0 pts). IV access (20 points). Ambulatory Aid- None/Bed Rest/Nurse Assist (0 pts). Gait- Weak (10 pts.). Mental Status- Oriented to own ability (0 pts). Total [place] Fall Scale indicates Low Risk Score (25-44 pts). Fall prevention measures have been instituted. Side Rails Up X 2 Placed close to Nursing Station Frequent Obs/Assesments occuring As available Patient and Family Educated on Fall Prevention Program and strategies. Assessment: 04:50 Reassessment: See triage assessment. RT at bedside to initiate BiPap. Cardiovascular: ed1 Rhythm is regular. Respiratory: Reports shortness of breath at rest air hunger Airway is patent Respiratory effort is even, labored, Respiratory pattern is tachypnea Breath sounds are diminished bilaterally. 05:58 Reassessment: Patient appears in no apparent distress at this time. Patient and/or ed1 family updated on plan of care and expected duration. Pain level reassessed. Patient is alert, oriented x 3, equal unlabored respirations, skin warm/dry/pink. Patient denies pain at this time. Patient states feeling better. Patient states symptoms have improved. 07:30 Reassessment: attempt to call report, Alana RN unavailable for pt report, will call sg back, pt updated , stated understanding. 07:50 Reassessment: Patient appears in no apparent distress at this time. attempt to call sg report, nurse remains unavailable, will try report again. 08:06 Reassessment: Patient appears in no apparent distress at this time. Patient and/or tw2 family updated on plan of care and expected duration. Pain level reassessed. Patient is alert, oriented x 3, equal unlabored respirations, skin warm/dry/pink. Vital Signs: 04:46 BP 143 / 64; Pulse 80; Resp 27; Temp 97.1(TE); Pulse Ox 52% on 3 lpm NC; Pain 0/10; ed1 04:46 Pulse Ox 98% on 15% Non-rebreather mask; ed1 04:53 Pulse 64; Resp 22; Pulse Ox 100% on 75% BiPAP; ed1 04:55 Pulse Ox 100% on 50% BiPAP; ed1 05:11 BP 153 / 97; Pulse 83; Resp 18; Pulse Ox 100% on 30% BiPAP; ed1 06:10 BP 142 / 64; Pulse 81; Resp 23; Temp 97.3(TE); Pulse Ox 93% on 35% BiPAP; ed1 06:13 Pulse Ox 99% on 50% BiPAP; ed1 07:00 BP 157 / 83; Pulse 69; Resp 22; Pulse Ox 97% on BiPAP; tw2 08:05 BP 142 / 77; Pulse 67; Resp 19; Pulse Ox 97% on BiPAP; tw2 04:46 O2 applied at 15L NRB. ed1 04:53 BiPap settings 12/6; rate of 14; 75% O2 ed1 04:55 RT decreased O2 % ed1 ED Course: 04:35 Patient arrived in ED. am2 04:39 Melvin Curry MD is Attending Physician. rn 04:41 Matilde Moyer RN is Primary Nurse. ed1 04:43 Triage completed. ed1 04:46 Arm band placed on. EKG completed in triage. Results shown to MD. EKG done per ed1 protocol. Performed by ED Staff. Shown to ED physician. 04:50 Patient has correct armband on for positive identification. Placed in gown. Bed in low ed1 position. Call light in reach. Side rails up X2. groundwater monitoring technician on. Pulse ox on. NIBP on. Warm blanket given. 04:59 Inserted saline lock: 22 gauge in left antecubital area, using aseptic technique. Blood ed1 collected. 04:59 Initial lab(s) drawn, by ED staff, sent to lab. First set of blood cultures drawn by ED ed1 staff. Initial Neb Treatment Given as ordered Patient was instructed and evaluated on procedure. 05:04 X-ray completed. Portable x-ray completed in exam room. Patient tolerated procedure kw well. 05:04 XRAY CXR (1 view) In Process Unspecified. EDMS 05:13 BIPAP Sent. ed1 06:18 Vincent Tan MD is Hospitalizing Provider. rn 06:52 No provider procedures requiring assistance completed. ed1 06:58 Primary Nurse role handed off by Matilde Moyer RN ed1 07:05 Joyce Sahu RN is Primary Nurse. tw2 08:06 Patient admitted, IV remains in place. tw2 Administered Medications: 04:54 Drug: AtroVENT Aerosol 0.5 mg Route: Inhalation; ed1 04:55 Drug: Xopenex (3) 1.25 mg Route: Inhalation; ed1 05:08 Drug: SOLU-Medrol 125 mg Route: IVP; Site: left antecubital; ed1 05:58 Follow up: Response: No adverse reaction ed1 06:11 Drug: Lasix 40 mg Route: IVP; Site: left antecubital; ed1 06:53 Follow up: Response: No adverse reaction; No output noted at this time. ed1 Intake: Output: 08:16 Urine: 700ml (Voided); Total: 700ml. tw2 Outcome: 06:19 Decision to Hospitalize by Provider. rn 08:06 Admitted to Med/surg accompanied by tech, via stretcher, room 206, with oxygen, with tw2 chart, Report called to CLINT Warner 08:06 Condition: stable 08:06 Instructed on the need for admit. 08:30 Patient left the ED. sg Signatures: Dispatcher [employer] EDMS Tanner Yanez RN RN sg Melvin Curry MD MD rn Riggs, Erika, RN RN ed1 Chapis Maria Tara RN RN tw2 Eden Rojo am2 Corrections: (The following items were deleted from the chart) 04:50 04:42 Acuity: YUNI 2 ed1 ed1 04:52 04:50 Reassessment: RT at bedside to initiate BiPap ed1 ed1 04:52 04:50 Respiratory: Airway is patent Breath sounds are diminished bilaterally. ed1 ed1
--- NOTE | 2018-09-27 06:20 | EDPHYS ---
Physician Documentation [facility] Name: José Manuel Ferguson Jr Age: 78 yrs Sex: Male : 1940 Arrival Date: 09/27/2018 Time: 04:35 Bed 3 Private MD: ED Physician Melvin Curry Historical: - Allergies: 09/27 04:46 No Known Allergies; ed1 - Home Meds: 04:46 ProAir HFA 90 mcg/actuation inhalation HFAA 2 puffs every 6 hours [Active]; aspirin 81 ed1 mg Oral TbEC 1 tab once daily [Active]; atorvastatin 10 mg Oral tab nightly [Active]; Lasix Oral [Active]; glipizide 5 mg Oral tab [Active]; levothyroxine 25 mcg tab 1 tab once daily [Active]; lisinopril 5 mg Oral tab nightly [Active]; metformin 500 mg Oral tab 1 tab 2 times per day [Active]; Symbicort 80-4.5 mcg/actuation inhalation HFAA 2 puffs 2 times per day [Active]; spironolactone Oral [Active]; - PMHx: 04:46 continuous home O2, 2L NC; COPD; Diabetes - NIDDM; High Cholesterol; Hypertension; ed1 - PSHx: 04:46 Unable to obtain; ed1 - Immunization history:: Adult Immunizations unknown. - Social history:: Smoking status: unknown. - Ebola Screening: : Patient negative for fever greater than or equal to 101.5 degrees Fahrenheit, and additional compatible Ebola Virus Disease symptoms Patient denies exposure to infectious person Patient denies travel to an Ebola-affected area in the 21 days before illness onset No symptoms or risks identified at this time. Vital Signs: 04:46 BP 143 / 64; Pulse 80; Resp 27; Temp 97.1(TE); Pulse Ox 52% on 3 lpm NC; Pain 0/10; ed1 04:46 Pulse Ox 98% on 15% Non-rebreather mask; ed1 04:53 Pulse 64; Resp 22; Pulse Ox 100% on 75% BiPAP; ed1 04:55 Pulse Ox 100% on 50% BiPAP; ed1 05:11 BP 153 / 97; Pulse 83; Resp 18; Pulse Ox 100% on 30% BiPAP; ed1 06:10 BP 142 / 64; Pulse 81; Resp 23; Temp 97.3(TE); Pulse Ox 93% on 35% BiPAP; ed1 06:13 Pulse Ox 99% on 50% BiPAP; ed1 07:00 BP 157 / 83; Pulse 69; Resp 22; Pulse Ox 97% on BiPAP; tw2 08:05 BP 142 / 77; Pulse 67; Resp 19; Pulse Ox 97% on BiPAP; tw2 04:46 O2 applied at 15L NRB. ed1 04:53 BiPap settings 12/6; rate of 14; 75% O2 ed1 04:55 RT decreased O2 % ed1 MDM: 04:40 Patient medically screened. rn 06:18 Differential diagnosis: CHF exacerbation, Chronic Obstructive Pulmonary Disease rn Myocardial Infarction pneumonia, Pneumothorax pulmonary edema. Data reviewed: vital signs, nurses notes, lab test result(s), EKG, radiologic studies, plain films, and as a result, I will admit patient. Counseling: I had a detailed discussion with the patient and/or guardian regarding: the historical points, exam findings, and any diagnostic results supporting the discharge/admit diagnosis, lab results, radiology results, the need for further work-up and treatment in the hospital. ED course: Pt with initial sats 50% on NC, had to be placed on bipap with acidosis and initial CO2 98, + combination of COPD and CHF, admitted to [facility] for further care. . 09/27 04:45 Order name: Blood Culture Adult (2) rn 09/27 04:45 Order name: BMP; Complete Time: 05:53 rn 09/27 04:45 Order name: CBC with Diff; Complete Time: 05:53 rn 09/27 04:45 Order name: NT PRO-BNP; Complete Time: 05:53 rn 09/27 04:45 Order name: Troponin (emerg Dept Use Only); Complete Time: 05:53 rn 09/27 04:45 Order name: ABG rn 09/27 04:45 Order name: XRAY CXR (1 view) rn 09/27 04:45 Order name: BIPAP rn 09/27 06:28 Order name: Lactate EDAZ 09/27 06:28 Order name: Procalcitonin EDAZ 09/27 04:45 Order name: EKG; Complete Time: 04:45 rn 09/27 04:45 Order name: Cardiac monitoring; Complete Time: 04:55 rn 09/27 04:45 Order name: EKG - Nurse/Tech; Complete Time: 04:55 rn 09/27 04:45 Order name: IV Saline Lock; Complete Time: 05:06 rn 09/27 04:45 Order name: Labs collected and sent; Complete Time: 04:55 rn 09/27 04:45 Order name: O2 Per Protocol; Complete Time: 04:55 rn 09/27 04:45 Order name: O2 Sat Monitoring; Complete Time: 04:55 rn Administered Medications: 04:54 Drug: AtroVENT Aerosol 0.5 mg Route: Inhalation; ed1 04:55 Drug: Xopenex (3) 1.25 mg Route: Inhalation; ed1 05:08 Drug: SOLU-Medrol 125 mg Route: IVP; Site: left antecubital; ed1 05:58 Follow up: Response: No adverse reaction ed1 06:11 Drug: Lasix 40 mg Route: IVP; Site: left antecubital; ed1 06:53 Follow up: Response: No adverse reaction; No output noted at this time. ed1 Disposition: 06:18 Critical Care:. rn Disposition: 09/27/18 06:19 Hospitalization ordered by Vincent Tan for Inpatient Admission. Preliminary diagnosis are Hypoxemia, Chronic obstructive pulmonary disease with (acute) exacerbation, Pulmonary edema, Acidosis. - Bed requested for Telemetry/MedSurg (Inpatient). - Status is Inpatient Admission. sg - Condition is Stable. - Problem is an acute exacerbation. - Symptoms have improved. UTI on Admission? No Critical care time excluding procedures: 06:18 Critical care time: Bedside Care: 25 minutes, Consultation: 5 minutes. Total time: 30 rn minutes Signatures: Dispatcher [employer] EDAZ Tanner Yanez RN RN sg Melvin Curry MD MD rn Riggs, Erika, RN RN ed1 Radha James RN RN ak1 Corrections: (The following items were deleted from the chart) 06:20 06:19 Hospitalization Ordered by Vincent Tan MD for Inpatient Admission. Preliminary ak1 diagnosis is Hypoxemia; Chronic obstructive pulmonary disease with (acute) exacerbation; Pulmonary edema; Acidosis. Bed requested for Telemetry/MedSurg (Inpatient). Status is Inpatient Admission. Condition is Stable. Problem is an acute exacerbation. Symptoms have improved. UTI on Admission? No. rn 08:30 06:20 09/27/2018 06:19 Hospitalization Ordered by Vincent Tan MD for Inpatient sg Admission. Preliminary diagnosis is Hypoxemia; Chronic obstructive pulmonary disease with (acute) exacerbation; Pulmonary edema; Acidosis. Bed requested for Telemetry/MedSurg (Inpatient). Status is Inpatient Admission. Condition is Stable. Problem is an acute exacerbation. Symptoms have improved. UTI on Admission? No. ak1
[2018-09-27] MEDS ORDERED: FUROSEMIDE 40 MG/4 ML VIAL ONE (06:21)
[2018-09-27] MEDS ORDERED: IPRATROPIUM BROM 0.5MG/2.5ML NEB PRN (08:33)
[2018-09-27] MEDS: INSULIN -REGULAR HUMAN 50 UNIT/0.5 ML ML SQ SCH ×5 (08:33→21:20)
[2018-09-27] MEDS ORDERED: ONDANSETRON 4 MG/2 ML VIAL IV PRN (08:33)
[2018-09-27] MEDS ORDERED: ALBUTEROL 2.5 MG/3 ML NEB SOL NEB PRN (08:33)
[2018-09-27 10:09] LABS: Arterial Blood Carboxyhemoglob 2.3 % (0-1.5); Blood Gas Oxyhemoglobin 88.5 % (94-97)
[2018-09-27 11:04] LABS: Urine Appearance CLEAR; Urine Bilirubin NEGATIVE (NEG); Urine Blood NEGATIVE (NEG); Urine Color YELLOW; Urine Glucose NEGATIVE (NEG); Urine Protein NEGATIVE (NEG); Urine Specific Gravity <=1.005 (1.005-1.030); Urine Urobilinogen 0.2 mg/dL (0.2-1.0); Urine pH 5.5 (5.0-7.0)
[2018-09-27 11:08] LABS: Urine Microscopic Reflex NO UMIC
[2018-09-27] MEDS: ASPIRIN 81 MG CHEWABLE TABLET PO SCH (11:32)
[2018-09-27] MEDS: SPIRONOLACTONE 25 MG TABLET PO SCH (11:32)
[2018-09-27] MEDS: ENOXAPARIN 40 MG/0.4 ML SQ SCH (11:33)
[2018-09-27] MEDS: FUROSEMIDE 40 MG/4 ML VIAL IV SCH ×2 (11:47→21:21)
--- NOTE | 2018-09-27 11:59 | P.PN ---
Subjective Date of Service: 09/27/18 Chief Complaint: acute on chronic respirtory failure Patient seen and examined chart reviewed and case discussed with RN. Soraida at the bedside in the treatment plan explained all questions answered. Patient still complaining of shortness of breath requiring BiPAP Review of Systems 10-point ROS is otherwise unremarkable Respiratory: As per HPI Physical Examination - Vital Signs Temperature: 96.8 F Blood Pressure: 142/77 Pulse: 67 Respirations: 19 Pulse Ox (%): 91 - Physical Exam General: Alert, Oriented x3, Mild distress, Obese HEENT: Atraumatic, PERRLA, EOMI Neck: Supple, JVD not distended Respiratory: Diminished, Crackles/rales, Expiratory wheezes Cardiovascular: Regular rate/rhythm, Normal S1 S2, Edema Gastrointestinal: Normal bowel sounds, Soft and benign, Non-distended, No tenderness Musculoskeletal: No tenderness Integumentary: No rashes, No erythema Neurological: Normal speech, Normal tone, Cranial nerves 3-12 intact, Normal affect, Abnormal strength (Generalized weakness) - Studies Laboratory Data (last 24 hrs) 09/27/18 05:00: WBC 6.0, Hgb 9.7 L, Hct 29.5 L, Plt Count 243 09/27/18 05:00: Sodium 139, Potassium 4.3, BUN 8, Creatinine 0.85, Glucose 168 H Microbiology Data (last 24 hrs): 09/27/18 05:12 Blood - Blood Anaerobic Blood Culture - Final Medications List Reviewed: Yes Assessment And Plan - Plan Assessment: 1.Acute on chronic respiratory failure. Currently on BiPAP. Will try to wean down as tolerated. Repeat the ABG. Pulmonology consulted 2.Acute on chronic diastolic CHF. Start on IV Lasix. Strict I/Os, daily weights. Continue CHF guidelines. 3. Acute COPD exacerbation. Continue nebulizer treatments and IV steroids 4.CO2 narcosis secondary to COPD continue BiPAP 5.Elevated trop I likely due to demand mismatch patient denies any chest pain. Will consult cardiology 6.Obesity BMI 39.3 7. Noncompliance intentional DVT prophylaxis with Lovenox. Discharge Plan: Other (SNF) Plan to discharge in: 48 Hours - Code Status/Comfort Care Code Status Assessed: Yes
--- NOTE | 2018-09-27 14:30 | EKG ---
Test Date: 2018-09-27 Test Time: 04:45:56 Vibratory Pile Driver: MEASUREMENT RESULTS: Intervals: Rate: 85 KS: 248 QRSD: 92 QT: 366 QTc: 435 [place]: P: 62 KS: 248 QRS: 79 T: -18 INTERPRETIVE STATEMENTS: Sinus rhythm with sinus arrhythmia with 1st degree AV block Cannot rule out Anterior infarct, age undetermined ST & T wave abnormality, consider inferior ischemia Abnormal ECG Compared to ECG 08/20/2018 03:46:04 Myocardial infarct finding now present Possible ischemia now present Atrial premature complex(es) no longer present ST (T wave) deviation still present Electronically Signed On 09-27-18 14:28:59 CDT by Geovany Avila
--- NOTE | 2018-09-27 16:34 | P.PN ---
Date of Service: 09/27/18 Patient told OT that yesterday he stopped taking his pills because he wanted to and not be a burden on his niece. However after talking to the niece he changed his mind and called EMS to be taken to the hospital for evaluation and treatment. Currently he does not have any suicidal ideation. States he is a [employer] and does not want to hurt himself. Does not have a plan. Assessment: Adjustment disorder with depressed mood.
[2018-09-27] MEDS ORDERED: GLUCAGON 1 MG/VIAL IM PRN (17:27)
[2018-09-27] MEDS ORDERED: D50W 25 GM/50 ML SYRINGE IV PRN (17:27)
--- NOTE | 2018-09-27 18:53 | RAD REPORT ---
EXAM DESCRIPTION: RAD - Chest Single View - 09/27/2018 11:45 am CLINICAL HISTORY: COPD;Cough;Dyspnea Chest pain. COMPARISON: Chest Single View dated 08/20/2018; Chest Single View dated 08/07/2018; Chest Single View d ated 06/29/2017; Chest Pa And Lat (2 Views) dated 02/11/2017 FINDINGS: Portable technique limits examination quality. Patchy opacity is present in the right lung base, probably representing an area of infiltrate/ aspira tion. The heart is moderately enlarged in size. No displaced fractures.
--- NOTE | 2018-09-27 19:53 | CON ---
Date of Consultation: 09/27/2018 Reason For Consultation: Congestive heart failure, acute on chronic diastolic. History Of Present Illness: Mr. Ferguson is a 78-year-old white male. He is very well known to have c hronic diastolic congestive heart failure by echocardiography that was done in July 2018. He also h as severe COPD. He is on home oxygen. He has a history of diabetes, hypertension, and dyslipidemia, came in with shortness of breath, hypoxic with a pO2 of 62, pCO2 of 72, pH of 7.36. He had a hemogl obin of 9.7. His troponin was elevated at 0.18. His BNP is 834. He actually denied any chest pain, nausea, vomiting, diaphoresis, PND, orthopnea, palpitations, or syncope. He does have some pedal ed jimym. Symptoms have been going on for about 24 hours. Past Medical History: As stated above. Allergies: NONE. Review of Systems: Negative. Social History: Positive for history of tobacco use in the past. Family History: Positive for diabetes. Medications: At home include Lipitor, inhalers, Lasix, Synthroid, lisinopril, aldactone, and metform in. Physical Examination: General: Mr. Ferguson was rather somnolent, hard to arouse, probably because of hypercapnia. History was difficult to obtain from him, but he did not appear to be in acute distress. His O2 saturation w as adequate on BiPAP. HEENT: Negative. Neck: Supple without any bruit, lymphadenopathy, JVD, or thyromegaly. Chest: Revealed bilateral wheezing on expiration and rales at the bases. Cardiac: Revealed a regular rhythm and rate with an S4 gallops. Aortic sclerosis murmur. No rubs. Abdomen: Obese, but benign. Extremities: Revealed trace edema. Diagnostic Data: As stated earlier. Impression And Plan: 1.Acute exacerbation of chronic obstructive pulmonary disease. 2.Acute exacerbation of chronic diastolic congestive heart failure. 3.Diabetes, poorly controlled. 4.Hypertension, well controlled. 5.Dyslipidemia. 6.Elevated troponin and BNP secondary to hypoxia. I agree with his present regimen including inhalers and diuresis. Continue the lisinopril and Aldact one. He obviously needs to watch his weight and be on salt restriction. With his COPD, he is a poor candidate for beta-blockers. I would not repeat any cardiac workup at this point. ROLANDO/HENRI Voice ID: [id number] Report ID: [id number]
[2018-09-27] MEDS: ATORVASTATIN 10 MG TAB PO SCH (21:19)
[2018-09-27] MEDS: LISINOPRIL 5 MG TAB PO SCH (21:19)
[2018-09-27] MEDS: INSULIN GLARGINE 100 UNITS/ML SQ SCH (21:20)
[2018-09-28] MEDS: LEVOTHYROXINE SOD 0.05 MG TABLET PO SCH (05:43)
[2018-09-28 06:12] LABS: Absolute Lymphocytes (CBC) 0.9 K/uL (0.7-4.9); Absolute Monocytes 0.9 K/uL (0.1-1.3); Absolute Neutrophil 4.9 K/uL (1.8-8.0); Basophils % 0.9 % (0-1.3); Eosinophils % 0.1 % (0-4.4); Hematocrit 26.5 % (39.6-49.0); Lymphocytes % 13.5 % (15.3-44.8); MPV 7.5 fL (7.6-11.3); Monocytes % 13.8 % (3.3-12.3); RBC Red Blood Cell Count 3.36 M/uL (4.33-5.43)
[2018-09-28 06:39] LABS: Potassium 4.2 mmol/L (3.5-5.1)
[2018-09-28] MEDS: INSULIN -REGULAR HUMAN 50 UNIT/0.5 ML ML SQ SCH ×4 (07:30→22:26)
[2018-09-28] MEDS: ASPIRIN 81 MG CHEWABLE TABLET PO SCH (08:57)
[2018-09-28] MEDS: SPIRONOLACTONE 25 MG TABLET PO SCH (08:57)
[2018-09-28] MEDS: ENOXAPARIN 40 MG/0.4 ML SQ SCH (08:57)
[2018-09-28] MEDS: FUROSEMIDE 40 MG/4 ML VIAL IV SCH ×2 (08:58→22:25)
[2018-09-28] MEDS ORDERED: HOME MED 1 EA UNK (Fluticasone/Umeclidin/Vilanter [Trelegy Ellipta 100-62.5-25] 1 EACH) IH SCH (09:00)
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
[2018-09-28 13:22] LABS: Arterial Blood Carboxyhemoglob 1.9 % (0-1.5); Blood Gas Oxyhemoglobin 84.7 % (94-97); Blood O2 Saturation 86.7 % (92-98.5)
--- NOTE | 2018-09-28 13:27 | PN ---
Subjective: Mr. Ferguson seems to have done better overnight. He seems to have diuresed. His blood p ressure and heart rate are under better control. I think if we re-establish his outpatient medicatio ns, he can probably be discharged with a diagnosis of congestive heart failure exacerbation caused by medicine noncompliance. ALEXANDRA/HENRI Voice ID: [id number] Report ID: [id number]
--- NOTE | 2018-09-28 15:05 | P.PN ---
Subjective Date of Service: 09/28/18 Chief Complaint: acute on chronic respirtory failure Patient seen and examined chart reviewed and case discussed with RN and Dr. Becerra. Patient reports some mild improvement still feels weak and short of breath. Now off of BiPAP Review of Systems 10-point ROS is otherwise unremarkable General: As per HPI Respiratory: As per HPI Physical Examination - Vital Signs Temperature: 97.7 F Blood Pressure: 168/72 Pulse: 80 Respirations: 19 Pulse Ox (%): 91 - Physical Exam General: Alert, Oriented x3, Mild distress, Obese, Other (Ill-appearing older than stated age) HEENT: Atraumatic, PERRLA, EOMI Neck: Supple Respiratory: Diminished, Crackles/rales Cardiovascular: Regular rate/rhythm, Normal S1 S2, Edema Gastrointestinal: Normal bowel sounds, Soft and benign, Non-distended, No tenderness Musculoskeletal: No tenderness Integumentary: No rashes Neurological: Normal speech, Normal tone, Normal affect, Abnormal strength ( Generalized weakness) Other Physical/Emotional Findings: Mood depressed. Affect is flat - Studies Laboratory Last Values WBC 6.8 K/uL (4.3-10.9) 09/28/18 05:45 RBC 3.36 M/uL (4.33-5.43) L 09/28/18 05:45 Hgb 8.7 g/dL (13.6-17.9) L 09/28/18 05:45 Hct 26.5 % (39.6-49.0) L 09/28/18 05:45 MCV 78.8 fL (80-100) L 09/28/18 05:45 MCH 26.0 pg (27.0-35.0) L 09/28/18 05:45 MCHC 33.0 g/dL (32.0-36.0) 09/28/18 05:45 RDW 15.4 % (12.1-15.2) H 09/28/18 05:45 Plt Count 239 K/uL (152-406) 09/28/18 05:45 MPV 7.5 fL (7.6-11.3) L 09/28/18 05:45 Neutrophils % 71.7 % (41.7-73.7) 09/28/18 05:45 Lymphocytes % 13.5 % (15.3-44.8) L 09/28/18 05:45 Monocytes % 13.8 % (3.3-12.3) H 09/28/18 05:45 Eosinophils % 0.1 % (0-4.4) 09/28/18 05:45 Basophils % 0.9 % (0-1.3) 09/28/18 05:45 Absolute Neutrophils 4.9 K/uL (1.8-8.0) 09/28/18 05:45 Absolute Lymphocytes 0.9 K/uL (0.7-4.9) 09/28/18 05:45 Absolute Monocytes 0.9 K/uL (0.1-1.3) 09/28/18 05:45 Absolute Eosinophils 0.0 K/uL (0-0.5) 09/28/18 05:45 Absolute Basophils 0.1 K/uL (0-0.5) 09/28/18 05:45 pH 7.38 (7.35-7.45) 09/28/18 12:05 pCO2 74.5 mmHG (35-45) H 09/28/18 12:05 pO2 55.5 mmHG (75-100) L 09/28/18 12:05 HCO3 43.1 mmol/L (22-28) H 09/28/18 12:05 Base Excess 17.1 mmol/L 09/28/18 12:05 Oxyhemoglobin 84.7 % (94-97) L 09/28/18 12:05 ABG O2 Sat (Measured) 86.7 % (92-98.5) L 09/28/18 12:05 ABG Carboxyhemoglobin 1.9 % (0-1.5) H 09/28/18 12:05 ABG Methemoglobin 0.4 % (0-1.5) 09/28/18 12:05 Other Total Hgb 10.2 g/dl (12-18) L 09/28/18 12:05 Inspired O2 32.0 % 09/28/18 12:05 Sodium 138 mmol/L (136-145) 09/28/18 05:45 Potassium 4.2 mmol/L (3.5-5.1) 09/28/18 05:45 Chloride 94 mmol/L (98-107) L 09/28/18 05:45 Carbon Dioxide 42 mmol/L (21-32) H* 09/28/18 05:45 BUN 20 mg/dL (7-18) H 09/28/18 05:45 Creatinine 0.94 mg/dL (0.55-1.3) 09/28/18 05:45 Estimated GFR 78 mL/min (=/>90) L 09/28/18 05:45 Glucose 121 mg/dL (74-106) H 09/28/18 05:45 POC Glucose 184 mg/dl (65-120) H 09/28/18 11:15 Lactic Acid 1.8 mmol/L (0.4-2.0) 09/27/18 09:00 Calcium 8.9 mg/dL (8.5-10.1) 09/28/18 05:45 Rapid Troponin I 0.19 ng/mL (0.0-0.045) H 09/27/18 05:00 Troponin I 0.16 ng/mL (0.0-0.045) H 09/28/18 01:02 NT-Pro-B Natriuret Pep 834 pg/mL (<450) H 09/27/18 05:00 Procalcitonin Cancelled 09/27/18 Unknown Urine Color Yellow 09/27/18 10:37 Urine Appearance Clear 09/27/18 10:37 Urine pH 5.5 (5.0-7.0) 09/27/18 10:37 Ur Specific [place] <=1.005 (1.005-1.030) 09/27/18 10:37 Urine Ketones Negative (NEG) 09/27/18 10:37 Urine Blood Negative (NEG) 09/27/18 10:37 Urine Nitrite Negative (NEG) 09/27/18 10:37 Urine Bilirubin Negative (NEG) 09/27/18 10:37 Urine Urobilinogen 0.2 mg/dL (0.2-1.0) 09/27/18 10:37 Ur Leukocyte Esterase Negative (NEG) 09/27/18 10:37 Urine Glucose Negative (NEG) 09/27/18 10:37 Urine Total Protein Negative (NEG) 09/27/18 10:37 Microbiology Data (last 24 hrs): 09/27/18 05:12 Blood - Blood Anaerobic Blood Culture - Final Medications List Reviewed: Yes Assessment And Plan - Plan Assessment: 1.Acute on chronic respiratory failure. Now off of BiPAP. Maintaining oxygen saturations on nasal cannula. Appreciate pulmonology input. Improving 2.Acute on chronic diastolic CHF. Continue IV Lasix. Strict I/Os, daily weights. Continue CHF guidelines. Appreciate Dr. Becerra's input. Improving 3. Acute COPD exacerbation. Continue nebulizer treatments and IV steroids. Wean steroids 4.CO2 narcosis secondary to COPD. 5.Elevated trop I likely due to demand mismatch patient denies any chest pain. No intervention planned. No chest pain 6.Obesity BMI 39.3 7. Noncompliance intentional 8. Adjustment disorder with depressed mood 9. Diabetes mellitus type 2 with hyperglycemia [id number] DVT prophylaxis with Lovenox. [facility] to [facility] once [facility]charge Plan[facility]
[2018-09-28] MEDS: IPRATROPIUM BROM 0.5MG/2.5ML NEB SCH ×2 (16:00→19:55)
[2018-09-28] MEDS: ARFORMOTEROL TARTRATE 15 MCG/2 ML VIAL.NEB NEB SCH ×2 (16:00→19:55)
[2018-09-28] MEDS: LISINOPRIL 5 MG TAB PO SCH (22:25)
[2018-09-28] MEDS: ATORVASTATIN 10 MG TAB PO SCH (22:25)
[2018-09-28] MEDS: INSULIN GLARGINE 100 UNITS/ML SQ SCH (22:25)
[2018-09-29] MEDS: IPRATROPIUM BROM 0.5MG/2.5ML NEB SCH ×4 (02:00→20:00)
[2018-09-29 05:24] LABS: Absolute Lymphocytes (CBC) 1.3 K/uL (0.7-4.9); Absolute Monocytes 0.8 K/uL (0.1-1.3); Absolute Neutrophil 4.2 K/uL (1.8-8.0); Basophils % 0.7 % (0-1.3); Hematocrit 27.9 % (39.6-49.0); Lymphocytes % 20.1 % (15.3-44.8); MPV 7.1 fL (7.6-11.3)
[2018-09-29 05:41] LABS: Magnesium 2.1 mg/dL (1.8-2.4); Potassium 3.5 mmol/L (3.5-5.1)
[2018-09-29] MEDS: LEVOTHYROXINE SOD 0.05 MG TABLET PO SCH (05:50)
[2018-09-29] MEDS ORDERED: POTASSIUM 25 MEQ EFFERV TAB PO ONE (05:56)
[2018-09-29] MEDS: ARFORMOTEROL TARTRATE 15 MCG/2 ML VIAL.NEB NEB SCH ×2 (07:05→20:00)
[2018-09-29] MEDS: INSULIN -REGULAR HUMAN 50 UNIT/0.5 ML ML SQ SCH ×4 (08:23→21:38)
[2018-09-29] MEDS: ASPIRIN 81 MG CHEWABLE TABLET PO SCH (08:24)
[2018-09-29] MEDS: FUROSEMIDE 40 MG/4 ML VIAL IV SCH ×2 (08:24→21:37)
[2018-09-29] MEDS: ENOXAPARIN 40 MG/0.4 ML SQ SCH (08:24)
[2018-09-29] MEDS: SPIRONOLACTONE 25 MG TABLET PO SCH (08:24)
--- NOTE | 2018-09-29 09:26 | P.PN ---
Subjective Date of Service: 09/29/18 Chief Complaint: acute on chronic respirtory failure Patient seen and examined chart reviewed and case discussed with RN. Patient feels better. Still on 4L via NC Review of Systems 10-point ROS is otherwise unremarkable Respiratory: SOB with Excertion Physical Examination - Vital Signs Temperature: 98 F Blood Pressure: 141/73 Pulse: 58 Respirations: 19 Pulse Ox (%): 92 - Physical Exam General: Alert, Oriented x3, Mild distress, Obese HEENT: Atraumatic, PERRLA, EOMI Neck: Supple, JVD not distended Respiratory: Diminished, Dull Cardiovascular: Regular rate/rhythm, Normal S1 S2, Edema Gastrointestinal: Normal bowel sounds, Soft and benign, Non-distended, No tenderness Musculoskeletal: No tenderness Integumentary: No rashes Neurological: Normal speech, Normal tone, Normal affect Other Physical/Emotional Findings: Mood depressed. Affect is flat - Studies Laboratory Tests 09/27/18 09/27/18 09/27/18 05:00 05:00 05:00 WBC 6.0 RBC 3.65 L Hgb 9.7 L Hct 29.5 L MCV 80.8 MCH 26.7 L MCHC 33.0 RDW 15.7 H Plt Count 243 MPV 6.9 L Neutrophils % 72.7 Lymphocytes % 13.7 L Monocytes % 11.1 Eosinophils % 2.0 Basophils % 0.5 Absolute Neutrophils 4.4 Absolute Lymphocytes 0.8 Absolute Monocytes 0.7 Absolute Eosinophils 0.1 Absolute Basophils 0.0 pH 7.24 L pCO2 98.1 H pO2 98.7 HCO3 41.0 H Base Excess 13.4 Oxyhemoglobin 94.2 ABG O2 Sat (Measured) 96.8 ABG Carboxyhemoglobin 1.9 H ABG Methemoglobin 0.8 Other Total Hgb 8.7 L Inspired O2 50.0 Sodium 139 Potassium 4.3 Chloride 98 Carbon Dioxide 39 H BUN 8 Creatinine 0.85 Estimated GFR 87 L Glucose 168 H Calcium 8.8 Rapid Troponin I 0.19 H NT-Pro-B Natriuret Pep 834 H Microbiology Data (last 24 hrs): 09/27/18 05:12 Blood - Blood Anaerobic Blood Culture - Final Medications List Reviewed: Yes Assessment And Plan - Plan Assessment: 1.Acute on chronic respiratory failure with hypoxia and hypercapnia. Now off of BiPAP. Maintaining oxygen saturations on 4 L nasal cannula . Appreciate pulmonology input. Improving 2.Acute on chronic diastolic CHF. Continue IV Lasix. Strict I/Os, daily weights. Continue CHF guidelines. Appreciate Dr. Becerra's input. Improving 3. Acute COPD exacerbation. Continue nebulizer treatments and IV steroids. Wean steroids 4.CO2 narcosis secondary to COPD. 5.Elevated trop I likely due to demand mismatch patient denies any chest pain. No intervention planned. No chest pain 6.Obesity BMI 39.3 7. Noncompliance intentional 8. Adjustment disorder with depressed mood 9. Diabetes mellitus type 2 with hyperglycemia [id number]. Cont SSI and accu checks DVT prophylaxis with Lovenox. Dc to custodial facility once accepted
[2018-09-29] MEDS: ATORVASTATIN 10 MG TAB PO SCH (21:37)
[2018-09-29] MEDS: LISINOPRIL 5 MG TAB PO SCH (21:37)
[2018-09-29] MEDS: INSULIN GLARGINE 100 UNITS/ML SQ SCH (21:38)
[2018-09-30] MEDS ORDERED: MELATONIN 3 MG TABLET PO ONE (00:40)
[2018-09-30] MEDS: IPRATROPIUM BROM 0.5MG/2.5ML NEB SCH ×4 (01:35→20:00)
[2018-09-30] MEDS: LEVOTHYROXINE SOD 0.05 MG TABLET PO SCH (05:34)
[2018-09-30 05:55] LABS: Potassium 3.5 mmol/L (3.5-5.1)
[2018-09-30] MEDS: INSULIN -REGULAR HUMAN 50 UNIT/0.5 ML ML SQ SCH ×4 (07:30→20:37)
[2018-09-30] MEDS: ARFORMOTEROL TARTRATE 15 MCG/2 ML VIAL.NEB NEB SCH ×2 (08:30→20:00)
[2018-09-30] MEDS: ENOXAPARIN 40 MG/0.4 ML SQ SCH (08:40)
[2018-09-30] MEDS: SPIRONOLACTONE 25 MG TABLET PO SCH (08:41)
[2018-09-30] MEDS: ASPIRIN 81 MG CHEWABLE TABLET PO SCH (08:41)
[2018-09-30] MEDS: FUROSEMIDE 40 MG/4 ML VIAL IV SCH ×2 (08:42→20:36)
[2018-09-30] MEDS ORDERED: POTASSIUM 25 MEQ EFFERV TAB PO ONE (09:00)
--- NOTE | 2018-09-30 11:21 | P.PN ---
Subjective Date of Service: 09/30/18 Chief Complaint: acute on chronic respirtory failure Patient seen and examined chart reviewed and case discussed with RN. Patient is doing better. Edema resolving Review of Systems 10-point ROS is otherwise unremarkable Physical Examination - Vital Signs Temperature: 97.6 F Blood Pressure: 132/61 Pulse: 65 Respirations: 20 Pulse Ox (%): 92 - Physical Exam General: Alert, In no apparent distress, Oriented x3, Obese HEENT: Atraumatic, PERRLA, EOMI Neck: Supple Respiratory: Diminished, Dull Cardiovascular: Regular rate/rhythm, Normal S1 S2, Edema Gastrointestinal: Normal bowel sounds, Soft and benign, Non-distended, No tenderness Musculoskeletal: No tenderness Integumentary: No rashes Neurological: Normal speech, Normal tone, Normal affect Other Physical/Emotional Findings: Mood depressed. Affect is flat - Studies Laboratory Last Values WBC 6.5 K/uL (4.3-10.9) 09/29/18 04:45 RBC 3.50 M/uL (4.33-5.43) L 09/29/18 04:45 Hgb 8.9 g/dL (13.6-17.9) L 09/29/18 04:45 Hct 27.9 % (39.6-49.0) L 09/29/18 04:45 MCV 79.7 fL (80-100) L 09/29/18 04:45 MCH 25.4 pg (27.0-35.0) L 09/29/18 04:45 MCHC 31.8 g/dL (32.0-36.0) L 09/29/18 04:45 RDW 15.5 % (12.1-15.2) H 09/29/18 04:45 Plt Count 232 K/uL (152-406) 09/29/18 04:45 MPV 7.1 fL (7.6-11.3) L 09/29/18 04:45 Neutrophils % 65.2 % (41.7-73.7) 09/29/18 04:45 Lymphocytes % 20.1 % (15.3-44.8) 09/29/18 04:45 Monocytes % 12.0 % (3.3-12.3) 09/29/18 04:45 Eosinophils % 2.0 % (0-4.4) 09/29/18 04:45 Basophils % 0.7 % (0-1.3) 09/29/18 04:45 Absolute Neutrophils 4.2 K/uL (1.8-8.0) 09/29/18 04:45 Absolute Lymphocytes 1.3 K/uL (0.7-4.9) 09/29/18 04:45 Absolute Monocytes 0.8 K/uL (0.1-1.3) 09/29/18 04:45 Absolute Eosinophils 0.1 K/uL (0-0.5) 09/29/18 04:45 Absolute Basophils 0.0 K/uL (0-0.5) 09/29/18 04:45 pH 7.38 (7.35-7.45) 09/28/18 12:05 pCO2 74.5 mmHG (35-45) H 09/28/18 12:05 pO2 55.5 mmHG (75-100) L 09/28/18 12:05 HCO3 43.1 mmol/L (22-28) H 09/28/18 12:05 Base Excess 17.1 mmol/L 09/28/18 12:05 Oxyhemoglobin 84.7 % (94-97) L 09/28/18 12:05 ABG O2 Sat (Measured) 86.7 % (92-98.5) L 09/28/18 12:05 ABG Carboxyhemoglobin 1.9 % (0-1.5) H 09/28/18 12:05 ABG Methemoglobin 0.4 % (0-1.5) 09/28/18 12:05 Other Total Hgb 10.2 g/dl (12-18) L 09/28/18 12:05 Inspired O2 32.0 % 09/28/18 12:05 Sodium 140 mmol/L (136-145) 09/30/18 05:10 Potassium 3.5 mmol/L (3.5-5.1) 09/30/18 05:10 Chloride 93 mmol/L (98-107) L 09/30/18 05:10 Carbon Dioxide 42 mmol/L (21-32) H* 09/30/18 05:10 BUN 26 mg/dL (7-18) H 09/30/18 05:10 Creatinine 1.05 mg/dL (0.55-1.3) 09/30/18 05:10 Estimated GFR 68 mL/min (=/>90) L 09/30/18 05:10 Glucose 145 mg/dL (74-106) H 09/30/18 05:10 POC Glucose 147 mg/dl (65-120) H 09/30/18 07:29 Lactic Acid 1.8 mmol/L (0.4-2.0) 09/27/18 09:00 Calcium 8.8 mg/dL (8.5-10.1) 09/30/18 05:10 Magnesium 2.1 mg/dL (1.8-2.4) 09/29/18 04:45 Rapid Troponin I 0.19 ng/mL (0.0-0.045) H 09/27/18 05:00 Troponin I 0.16 ng/mL (0.0-0.045) H 09/28/18 01:02 NT-Pro-B Natriuret Pep 834 pg/mL (<450) H 09/27/18 05:00 Procalcitonin Cancelled 09/27/18 Unknown Urine Color Yellow 09/27/18 10:37 Urine Appearance Clear 09/27/18 10:37 Urine pH 5.5 (5.0-7.0) 09/27/18 10:37 Ur Specific [place] <=1.005 (1.005-1.030) 09/27/18 10:37 Urine Ketones Negative (NEG) 09/27/18 10:37 Urine Blood Negative (NEG) 09/27/18 10:37 Urine Nitrite Negative (NEG) 09/27/18 10:37 Urine Bilirubin Negative (NEG) 09/27/18 10:37 Urine Urobilinogen 0.2 mg/dL (0.2-1.0) 09/27/18 10:37 Ur Leukocyte Esterase Negative (NEG) 09/27/18 10:37 Urine Glucose Negative (NEG) 09/27/18 10:37 Urine Total Protein Negative (NEG) 09/27/18 10:37 Microbiology Data (last 24 hrs): Microbiology 09/27/18 05:12 Blood - Blood Aerobic Blood Culture - Preliminary No growth in 24 hours. 09/27/18 05:12 Blood - Blood Anaerobic Blood Culture - Final 09/27/18 05:00 Blood - Blood Aerobic Blood Culture - Preliminary No growth in 24 hours. 09/27/18 05:00 Blood - Blood Anaerobic Blood Culture - Preliminary No growth in 24 hours. Medications List Reviewed: Yes Assessment And Plan - Plan Assessment: 1.Acute on chronic respiratory failure with hypoxia and hypercapnia. Now off of BiPAP. Maintaining oxygen saturations on 4 L nasal cannula . Appreciate pulmonology input. Improving. Patient will need NIV. Will discuss with social media content specialist 2.Acute on chronic diastolic CHF. Continue IV Lasix. Strict I/Os, daily weights. Continue CHF guidelines. Appreciate Dr. Becerra's input. Improving. Edema resolving 3. Acute COPD exacerbation. Continue nebulizer treatments and PO steroids 4.CO2 narcosis secondary to COPD. Resolved. Back to baseline. 5.Elevated trop I likely due to demand mismatch patient denies any chest pain. No intervention planned. No chest pain 6.Obesity BMI 35 7. Noncompliance intentional 8. Adjustment disorder with depressed mood 9. Diabetes mellitus type 2 with hyperglycemia [id number]. Cont SSI and accu checks DVT prophylaxis with Lovenox. Dc to care home facility once accepted
[2018-09-30] MEDS: INSULIN GLARGINE 100 UNITS/ML SQ SCH (20:37)
[2018-09-30] MEDS: ATORVASTATIN 10 MG TAB PO SCH (20:38)
[2018-09-30] MEDS: LISINOPRIL 5 MG TAB PO SCH (20:38)
[2018-10-01] MEDS: IPRATROPIUM BROM 0.5MG/2.5ML NEB SCH ×4 (02:00→20:00)
[2018-10-01] MEDS: LEVOTHYROXINE SOD 0.05 MG TABLET PO SCH (06:33)
[2018-10-01 06:51] LABS: Potassium 3.6 mmol/L (3.5-5.1)
[2018-10-01] MEDS: ARFORMOTEROL TARTRATE 15 MCG/2 ML VIAL.NEB NEB SCH ×2 (07:35→20:00)
[2018-10-01] MEDS: INSULIN -REGULAR HUMAN 50 UNIT/0.5 ML ML SQ SCH ×4 (08:52→21:48)
[2018-10-01] MEDS: ENOXAPARIN 40 MG/0.4 ML SQ SCH (08:53)
[2018-10-01] MEDS: FUROSEMIDE 40 MG/4 ML VIAL IV SCH ×2 (08:53→21:44)
[2018-10-01] MEDS: ASPIRIN 81 MG CHEWABLE TABLET PO SCH (08:54)
[2018-10-01] MEDS: SPIRONOLACTONE 25 MG TABLET PO SCH (08:54)
[2018-10-01] MEDS ORDERED: MAGNESIUM CITRATE 300 ML BOT PO SCH (09:00)
--- NOTE | 2018-10-01 15:10 | P.DS ---
Admission Date: 09/27/18 Discharge Date: 10/01/18 Disposition: TRANSFER TO SNF - MEDICAL Discharge Condition: FAIR Reason for Admission: acute on chronic respirtory failure Brief History of Present Illness: Frp, H&P Mr Ferguson is a 78 years old male with history of DM II, HTN, chronic diastolic CHF, COPD on home oxygen and BiPAP at bedtime, admitted to the hospital about 1 month ago due to similar condition, secondary to COPD and CHF exacerbation. He was discharged with oral Lasix but according to his , he ran out of this medication about 2 weeks ago without refill it. According to his , the patient start to be more SOB since 1 week ago. His legs start to be more swollen than usual, no fever or chills, his cough also increased, more productive but not known the color of his secretions. Last night, the patient rapid declined, his SOB was even worse, and he become unresponsive. In ER, O2 Sat 52% on 3 L, afebrile, BP 143/64. ABG shows PH 7.28, PCO2 98. He was placed on BiPAP. CXR right base infiltrate, similar to previous exam, however, there is more venous congestion bilaterally. Hospital Course: Patient is a 78-year-old male with past medical history of diabetes CHF COPD who was noncompliant comes in with acute respiratory failure. Patient had to be placed on BiPAP. Pulmonology was consulted. Patient was started on IV steroids and nebulizer treatments. Patient also had some CHF exacerbation and was started on IV diuretics. Patient did well over the course of the hospital stay. His breathing improved he was able to be taken off of BiPAP. Patient's weight decreased and had a negative fluid balance. Patient did incidental to troponin. He did not have any chest pain. This is likely due to demand mismatch. Cardiology was consulted. Dr. Becerra did not recommend any intervention. Patient did report that he had stopped taking his medications at home as he did not want to be a burden anymore however changed his mind after talking to his knees and called 911 to have EMS taken the hospital. Patient did not appear to have any suicidal ideation at this time no plans for harming himself. Patient was improving he is edema resolved his shortness of breath was significantly better and he was able to ambulate short distances. He was seen by PT and recommended to have physical therapy therefore was referred to skilled nurse facility and was discharged after being accepted 1.Acute on chronic respiratory failure with hypoxia and hypercapnia. 2.Acute on chronic diastolic CHF. 3. Acute COPD exacerbation. Continue nebulizer treatments and PO steroids 4.CO2 narcosis secondary to COPD. Resolved. 5.Elevated trop I 6.Obesity BMI 35 7. Noncompliance intentional 8. Adjustment disorder with depressed mood 9. Diabetes mellitus type 2 with hyperglycemia [id number]. Vital Signs/Physical Exam: Temp Pulse Resp BP Pulse Ox 97.8 F 85 20 115/59 L 97 10/01/18 12:00 10/01/18 12:00 10/01/18 12:00 10/01/18 12:00 10/01/18 12:00 General: Alert, In no apparent distress, Oriented x3, Obese, Other (Appears older than stated age elderly male) HEENT: Atraumatic, PERRLA, EOMI Neck: Supple, JVD not distended Respiratory: Diminished Cardiovascular: Regular rate/rhythm, Normal S1 S2, Edema Gastrointestinal: Normal bowel sounds, Soft and benign, Non-distended, No tenderness Musculoskeletal: No tenderness Integumentary: No rashes Neurological: Normal speech, Normal tone, Normal affect Other Physical/Emotional Findings: Mood depressed. Affect is flat Laboratory Data at Discharge: WBC 6.5 K/uL (4.3-10.9) 09/29/18 04:45 Hgb 8.9 g/dL (13.6-17.9) L 09/29/18 04:45 Hct 27.9 % (39.6-49.0) L 09/29/18 04:45 Plt Count 232 K/uL (152-406) 09/29/18 04:45 Sodium 137 mmol/L (136-145) 10/01/18 06:25 Potassium 3.6 mmol/L (3.5-5.1) 10/01/18 06:25 BUN 24 mg/dL (7-18) H 10/01/18 06:25 Creatinine 1.09 mg/dL (0.55-1.3) 10/01/18 06:25 Glucose 234 mg/dL (74-106) H 10/01/18 06:25 Magnesium 2.1 mg/dL (1.8-2.4) 09/29/18 04:45 Troponin I 0.16 ng/mL (0.0-0.045) H 09/28/18 01:02 Home Medications: Albuterol Inhaler [Ventolin Inhaler*] 2 puff IH Q6H PRN 06/29/17 Aspirin 81 mg PO DAILY 06/29/17 Atorvastatin Calcium [Lipitor*] 10 mg PO BEDTIME 06/29/17 Metformin HCl [Metformin ER Osmotic] 1,000 mg PO BID 06/29/17 Lisinopril 5 mg PO BEDTIME 06/30/17 Cyanocobalamin (Vitamin B-12) [Vitamin B12] 1,000 mcg PO BID 08/07/18 Levothyroxine [Synthroid*] 1 tab PO [id number] 08/07/18 Fluticasone/Umeclidin/Vilanter [Trelegy Ellipta 100-62.5-25] 1 each IH DAILY #1 blst.w.dev 08/09/18 Furosemide [Lasix*] 40 mg PO DAILY #30 tab 08/23/18 Spironolactone [Aldactone*] 25 mg PO DAILY 09/27/18 Insulin Glargine Human [Lantus*] 10 units SQ BEDTIME #1 vial 10/01/18 Prednisone [Deltasone] 10 mg PO BID #5 tablet 10/01/18 New Medications: Insulin Glargine Human [Lantus*] 10 units SQ BEDTIME #1 vial Prednisone [Deltasone] 10 mg PO BID #5 tablet Patient Discharge Instructions: With primary care physician in 1 week. Follow up with day guard Dr. Mann in 2 weeks. Return to ER for worsening condition Diet: ADA Activity: Fall precautions Time spent managing pt's care (in minutes): 39
[2018-10-01] MEDS ORDERED: POTASSIUM CL SA 10 MEQ TAB PO ONE (16:08)
[2018-10-01] MEDS: ATORVASTATIN 10 MG TAB PO SCH (21:45)
[2018-10-01] MEDS: LISINOPRIL 5 MG TAB PO SCH (21:45)
[2018-10-01] MEDS: INSULIN GLARGINE 100 UNITS/ML SQ SCH (21:48)
[2018-10-02] MEDS: IPRATROPIUM BROM 0.5MG/2.5ML NEB SCH ×3 (02:00→13:55)
[2018-10-02] MEDS: LEVOTHYROXINE SOD 0.05 MG TABLET PO SCH (05:46)
[2018-10-02 06:30] LABS: Potassium 3.8 mmol/L (3.5-5.1)
[2018-10-02] MEDS: ARFORMOTEROL TARTRATE 15 MCG/2 ML VIAL.NEB NEB SCH (07:25)
[2018-10-02 08:40] VITALS: O2SAT 95
[2018-10-02] MEDS: ENOXAPARIN 40 MG/0.4 ML SQ SCH (08:40)
[2018-10-02] MEDS: FUROSEMIDE 40 MG/4 ML VIAL IV SCH (08:40)
[2018-10-02] MEDS: SPIRONOLACTONE 25 MG TABLET PO SCH (08:41)
[2018-10-02] MEDS: ASPIRIN 81 MG CHEWABLE TABLET PO SCH (08:41)
[2018-10-02] MEDS: INSULIN -REGULAR HUMAN 50 UNIT/0.5 ML ML SQ SCH ×3 (08:42→16:37)
[2018-10-02] MEDS ORDERED: POTASSIUM 25 MEQ EFFERV TAB PO ONE (09:00)
[2018-10-02 11:02] VITALS: BMI 35.7
[2018-10-02 16:50] VITALS: BP 129/61; TEMP 98.6
--- NOTE | 2018-10-03 16:36 | P.PN ---
Subjective Date of Service: 10/02/18 Chief Complaint: acute on chronic respirtory failure Subjective: Improving Patient seen and examined chart reviewed and case discussed with RN. Patient is doing better. Edema resolving Review of Systems 10-point ROS is otherwise unremarkable Physical Examination - Vital Signs Temperature: 98.6 F Blood Pressure: 129/61 Pulse: 67 Respirations: 17 Pulse Ox (%): 96 - Physical Exam General: Alert, In no apparent distress HEENT: Atraumatic, PERRLA, EOMI Neck: Supple, JVD not distended Respiratory: Clear to auscultation bilaterally, Normal air movement Cardiovascular: Regular rate/rhythm, Normal S1 S2 Gastrointestinal: Normal bowel sounds, No tenderness Musculoskeletal: No tenderness Integumentary: No rashes Neurological: Normal speech, Normal tone, Normal affect Other Physical/Emotional Findings: Mood depressed. Affect is flat - Studies Medications List Reviewed: Yes Assessment And Plan - Plan Assessment: 1.Acute on chronic respiratory failure with hypoxia and hypercapnia. Now off of BiPAP. Maintaining oxygen saturations on 4 L nasal cannula . Appreciate pulmonology input. Improving. Patient will need NIV. Will discuss with social service technician 2.Acute on chronic diastolic CHF. Continue IV Lasix. Strict I/Os, daily weights. Continue CHF guidelines. Appreciate Dr. Becerra's input. Improving. Edema resolving 3. Acute COPD exacerbation. Continue nebulizer treatments and PO steroids 4.CO2 narcosis secondary to COPD. Resolved. Back to baseline. 5.Elevated trop I likely due to demand mismatch patient denies any chest pain. No intervention planned. No chest pain 6.Obesity BMI 35 7. Noncompliance intentional 8. Adjustment disorder with depressed mood 9. Diabetes mellitus type 2 with hyperglycemia [id number]. Cont SSI and accu checks DVT prophylaxis with Lovenox. Dc to alf facility once accepted Discharge Plan: Fdc
== END 2018-10-02 17:14 | DRG 291 ==
LOC: ER 04:33 → ERHOLD 06:05 → 2ND 07:41
PROVIDERS: ADMIT Internal Medicine; ATTEND Family Medicine
DX: I11.0 Hypertensive heart disease with heart failure (principal); J96.22 Acute and chronic respiratory failure with hypercapnia; J96.21 Acute and chronic respiratory failure with hypoxia; J44.1 Chronic obstructive pulmonary disease with (acute) exacerbation; I24.8 Other forms of acute ischemic heart disease; I50.33 Acute on chronic diastolic (congestive) heart failure; Z99.81 Dependence on supplemental oxygen; E11.65 Type 2 diabetes mellitus with hyperglycemia; Z91.14 Patient's other noncompliance with medication regimen; E66.9 Obesity, unspecified; F43.21 Adjustment disorder with depressed mood; E78.5 Hyperlipidemia, unspecified; Z68.39 Body mass index [BMI] 39.0-39.9, adult; Z79.84 Long term (current) use of oral hypoglycemic drugs; Z79.82 Long term (current) use of aspirin; Z79.51 Long term (current) use of inhaled steroids; Z79.52 Long term (current) use of systemic steroids; Z87.891 Personal history of nicotine dependence
CPT/HCPCS: 36415; 71045; 80048; 81003; 82805; 82962; 83605; 83735; 83880; 84145; 84484; 85025; 87040; 93005; 94640; 94660; 94760; 96374; 96375; 97116; 97162; 97167; 97530; 99291; 99292; J1650; J1940; J2930; J7605

== ENCOUNTER 2018-11-13 21:22 | Observation (INO) | payer OTHER ==
[2018-11-13 22:10] LABS: Absolute Lymphocytes (CBC) 0.6 K/uL (0.7-4.9); Basophils % 0.3 % (0-1.3); Hematocrit 39.8 % (39.6-49.0); Lymphocytes % 4.1 % (15.3-44.8); MPV 7.6 fL (7.6-11.3); Monocytes % 6.1 % (3.3-12.3); RBC Red Blood Cell Count 4.62 M/uL (4.33-5.43)
[2018-11-13] MEDS ORDERED: CEFTRIAXONE/SWI 1gm 1 GM/10 ML SYR ONE (22:19)
[2018-11-13] MEDS ORDERED: NA CHLORIDE 0.9% 1,000 ML ONE (22:19)
[2018-11-13] MEDS ORDERED: ACETAMINOPHEN 500 MG TAB ONE (22:19)
[2018-11-13 22:26] LABS: ALT/SGPT 49 U/L (12-78); AST/SGOT 26 U/L (15-37); Albumin 3.7 g/dL (3.4-5.0); Alkaline Phosphatase 105 U/L (45-117); BUN Blood Urea Nitrogen 15 mg/dL (7-18); Bicarbonate 27 mmol/L (21-32); Bilirubin Direct 0.1 mg/dL (0-0.2); Bilirubin Total 0.7 mg/dL (0.2-1.0); CKMB Creatine Kinase MB < 1.0 ng/mL (0.3-3.6); Creatine Phosphokinase 170 U/L (39-308); Glucose Level 252 mg/dL (74-106); Lipase 76 U/L (73-393); Potassium 4.2 mmol/L (3.5-5.1); Protein, Total 8.5 g/dL (6.4-8.2); Protime INR 1.08; Sodium Level 132 mmol/L (136-145)
[2018-11-13] MEDS ORDERED: NA CHLORIDE 0.9% 250 ML ONE (23:54)
[2018-11-13] MEDS ORDERED: VANCOMYCIN 1 GM/VIAL ONE (23:54)
[2018-11-14 00:01] LABS: Urine Blood NEGATIVE (NEG); Urine Glucose TRACE (NEG); Urine Protein 1+ (NEG); Urine Specific Gravity 1.015 (1.005-1.030); Urine pH 8.5 (5.0-7.0)
[2018-11-14 00:02] LABS: Urine Bacteria <20 /HPF (NONE SEEN); Urine Culture Reflex Order NOT NEEDED; Urine RBC <5 /HPF (NONE SEEN)
--- NOTE | 2018-11-14 00:02 | ER ---
Nurse's Notes [facility] Name: José Manuel Ferguson Jr Age: 78 yrs Sex: Male : 1940 Arrival Date: 11/13/2018 Time: 21:30 Bed 23 Private MD: Diagnosis: Cellulitis of right lower limb Presentation: 11/13 21:37 Presenting complaint: Family reports that pt has been weak today with body aches and tl2 has had a fever since this morning. Gave Tylenol at 3 pm. Pt denies cough, shortness of breath, or urinary symptoms. Transition of care: patient was not received from another setting of care. Onset of symptoms was November 13, 2018. Risk Assessment: Do you want to hurt yourself or someone else? Patient reports no desire to harm self or others. Initial Sepsis Screen: Does the patient meet any 2 criteria? Temp <36.0*C (96.8*F)) or > 38.3*C (100.9*F). HR > 90 bpm. Yes Does the patient have a suspected source of infection? Yes: Other: unknown at this time If YES to both, name of provider notified: Fer Douglass NP. Care prior to arrival: Medication(s) given: Tylenol, 650 mg, at 1500 today. 21:37 Method Of Arrival: Wheelchair tl2 21:37 Acuity: YUNI 2 tl2 Historical: - Allergies: 21:41 No Known Allergies; tl2 - Home Meds: 21:41 aspirin 81 mg Oral TbEC 1 tab once daily [Active]; atorvastatin 10 mg Oral tab nightly tl2 [Active]; glipizide 5 mg Oral tab [Active]; Lasix Oral [Active]; levothyroxine 25 mcg tab 1 tab once daily [Active]; lisinopril 5 mg Oral tab nightly [Active]; metformin 500 mg Oral tab 1 tab 2 times per day [Active]; ProAir HFA 90 mcg/actuation inhalation HFAA 2 puffs every 6 hours [Active]; Spironolactone Oral [Active]; Symbicort 80-4.5 mcg/actuation inhalation HFAA 2 puffs 2 times per day [Active]; - PMHx: 21:41 continuous home O2, 2L NC; COPD; Diabetes - NIDDM; High Cholesterol; Hypertension; tl2 - Immunization history:: Adult Immunizations up to date. - Social history:: Smoking status: Patient/guardian denies using tobacco. - Ebola Screening: : No symptoms or risks identified at this time. Screenin:42 Abuse screen: Denies threats or abuse. Nutritional screening: No deficits noted. tl2 Tuberculosis screening: No symptoms or risk factors identified. Fall Risk Gait- Weak (10 pts.). Assessment: 21:45 General: Appears in no apparent distress. uncomfortable, Behavior is calm, cooperative, ca1 appropriate for age. Pain: Denies pain. Neuro: Level of Consciousness is awake, alert, obeys commands, Oriented to person, place, time, situation. Cardiovascular: Heart tones S1 S2 present Capillary refill < 3 seconds Patient's skin is warm and dry. Rhythm is sinus rhythm. Respiratory: Airway is patent Respiratory effort is even, unlabored, Respiratory pattern is symmetrical, tachypnea Breath sounds are clear bilaterally. Denies cough. GI: Abdomen is round non-distended, Bowel sounds present X 4 quads. Abd is soft and non tender X 4 quads. : No deficits noted. No signs and/or symptoms were reported regarding the genitourinary system. EENT: No deficits noted. No signs and/or symptoms were reported regarding the EENT system. Derm: Skin is intact, is healthy with good turgor, Skin is pink, warm \T\ dry. Musculoskeletal: Circulation, motion, and sensation intact. Capillary refill < 3 seconds, Swelling present in right leg. 22:30 Reassessment: Patient appears in no apparent distress at this time. Patient is alert, ca1 oriented x 3, equal unlabored respirations, skin warm/dry/pink. 23:19 Reassessment: Patient appears in no apparent distress at this time. Patient and/or ca1 family updated on plan of care and expected duration. Pain level reassessed. Patient is alert, oriented x 3, equal unlabored respirations, skin warm/dry/pink. Patient states feeling better. Patient states symptoms have improved. Reassessment:. 23:27 Reassessment: Notified provider regarding pt's temp. No orders as of this time. ca1 11/14 00:40 Reassessment: Patient appears in no apparent distress at this time. Patient and/or ca1 family updated on plan of care and expected duration. Pain level reassessed. Patient is alert, oriented x 3, equal unlabored respirations, skin warm/dry/pink. Assisted pt to pee in urinal. Vital Signs: 11/13 21:41 BP 147 / 78; Pulse 98; Resp 20; Temp 101.2(O); Pulse Ox 94% on R/A; Weight 77.11 kg; tl2 Height 5 ft. 7 in. (170.18 cm); Pain 0/10; 22:30 BP 147 / 72; Pulse 92; Resp 28 S; Pulse Ox 94% on R/A; ca1 23:11 BP 119 / 59; Pulse 93; Resp 20 S; Temp 101.1(O); Pulse Ox 94% on R/A; ca1 23:58 BP 119 / 69; Pulse 70; Resp 22 S; Temp 98.5(O); Pulse Ox 94% on R/A; ca1 11/14 00:40 BP 119 / 48; Pulse 82; Resp 21 S; Temp 99.8(O); Pulse Ox 98% on R/A; ca1 01:45 BP 122 / 52; Pulse 67; Resp 18; Pulse Ox 95% on 2 lpm NC; mg2 11/13 21:41 Body Mass Index 26.63 (77.11 kg, 170.18 cm) tl2 ED Course: 11/13 21:30 Patient arrived in ED. ca1 21:40 Triage completed. tl2 21:41 Arm band placed on right wrist. tl2 21:42 Patient has correct armband on for positive identification. Placed in gown. Bed in low tl2 position. Call light in reach. Side rails up X2. Adult w/ patient. 21:43 Macey Alvarez, CLINT is Primary Nurse. ca1 21:50 Fer Douglass NP is PHCP. pm1 21:50 Harshad Virgen MD is Attending Physician. pm1 21:50 Initial lab(s) drawn, by me, sent to lab. First set of blood cultures drawn. ca1 22:06 Second set of blood cultures drawn by me. Inserted saline lock: 20 gauge in left ca1 antecubital area, using aseptic technique. Blood collected. 22:11 No provider procedures requiring assistance completed. Inserted saline lock: 20 gauge ca1 in right antecubital area, using aseptic technique. Blood collected. 22:12 Chest Single View XRAY In Process Unspecified. EDMS 22:58 Extremity Venous Uni Ltd US In Process Unspecified. EDMS 11/14 00:00 Ezequiel Monteiro MD is Hospitalizing Provider. pm1 02:45 Patient admitted, IV remains in place. mg2 Administered Medications: 11/13 21:54 Drug: Tylenol 1000 mg Route: PO; ca1 23:27 Follow up: Response: No adverse reaction; Temperature is unchanged; Temperature is ca1 unchanged, NOTIFIED PROVIDER 22:10 Drug: Rocephin 1 grams Route: IV; Rate: calculated rate; Site: right antecubital; ca1 11/14 02:46 Follow up: Response: No adverse reaction; IV Status: Completed infusion mg2 11/13 22:11 Drug: NS 0.9% (30 ml/kg) 30 ml/kg Route: IV; Rate: bolus; Site: right antecubital; ca1 11/14 01:03 Follow up: Urine output 200 ml; Response: No adverse reaction; IV Status: Completed ca1 infusion 11/13 23:46 Drug: vancoMYCIN 1 grams Route: IVPB; Infused Over: 2 hrs; Site: right antecubital; ca1 11/14 01:04 Follow up: Response: No adverse reaction; IV Status: Infusion continued upon admission ca1 Output: 00:40 Urine: 200ml (Voided); Total: 200ml. ca1 01:03 Urine: 200ml; Total: 400ml. ca1 Outcome: 00:01 Decision to Hospitalize by Provider. pm1 02:45 Admitted to Tele accompanied by nurse, via wheelchair, room 424, with oxygen, with mg2 chart, Report called to CLINT Mcmillan 02:45 Condition: stable 02:45 Instructed on the need for admit. 02:59 Patient left the ED. mg2 Signatures: Dispatcher [employer] EDMS Fer Douglass, WOOL HAT FLANGER WOOL HAT FLANGER pm1 Stacy Pfeiffer RN RN tl2 Cody Doherty RN RN mg2 Macey Alvarez RN RN ca1
--- NOTE | 2018-11-14 00:03 | EDPHYS ---
Physician Documentation [facility] Name: José Manuel Ferguson Jr Age: 78 yrs Sex: Male : 1940 Arrival Date: 11/13/2018 Time: 21:30 Bed 23 Private MD: ED Physician Harshad Virgen HPI: 11/13 22:05 This 78 yrs old Male presents to ER via Wheelchair with complaints of Fever. pm1 22:05 The patient reports fever, that was measured at 102 degrees Fahrenheit. Onset: The pm1 symptoms/episode began/occurred today. Modifying factors: swelling and warmth to right lower leg. Associated signs and symptoms: Pertinent negatives: abdominal pain, chest pain, cough, earache, runny nose, shortness of breath, sore throat, vomiting. Patient with onset of fever today. Patient without any complaints except his daughter noticed that he started having some redness, warmth, and swelling to his right lower leg. Historical: - Allergies: 21:41 No Known Allergies; tl2 - Home Meds: 21:41 aspirin 81 mg Oral TbEC 1 tab once daily [Active]; atorvastatin 10 mg Oral tab nightly tl2 [Active]; glipizide 5 mg Oral tab [Active]; Lasix Oral [Active]; levothyroxine 25 mcg tab 1 tab once daily [Active]; lisinopril 5 mg Oral tab nightly [Active]; metformin 500 mg Oral tab 1 tab 2 times per day [Active]; ProAir HFA 90 mcg/actuation inhalation HFAA 2 puffs every 6 hours [Active]; Spironolactone Oral [Active]; Symbicort 80-4.5 mcg/actuation inhalation HFAA 2 puffs 2 times per day [Active]; - PMHx: 21:41 continuous home O2, 2L NC; COPD; Diabetes - NIDDM; High Cholesterol; Hypertension; tl2 - Immunization history:: Adult Immunizations up to date. - Social history:: Smoking status: Patient/guardian denies using tobacco. - Ebola Screening: : No symptoms or risks identified at this time. ROS: 22:05 Eyes: Negative for injury, pain, redness, and discharge, ENT: Negative for injury, pm1 pain, and discharge, Neck: Negative for injury, pain, and swelling, Cardiovascular: Negative for chest pain, palpitations, and edema, Respiratory: Negative for shortness of breath, cough, wheezing, and pleuritic chest pain, Abdomen/GI: Negative for abdominal pain, nausea, vomiting, diarrhea, and constipation. 22:05 Back: Negative for injury and pain, MS/Extremity: Negative for injury and deformity. 22:05 Neuro: Negative for headache, weakness, numbness, tingling, and seizure. 22:05 Constitutional: Positive for fever, Negative for body aches, poor PO intake. 22:05 Skin: Positive for erythema, swelling, of the right astudillo. Exam: 22:05 Constitutional: This is a well developed, well nourished patient who is awake, alert, pm1 and in no acute distress. Head/Face: Normocephalic, atraumatic. Neck: Trachea midline, no thyromegaly or masses palpated, and no cervical lymphadenopathy. Supple, full range of motion without nuchal rigidity, or vertebral point tenderness. No Meningismus. Chest/axilla: Normal chest wall appearance and motion. Nontender with no deformity. No lesions are appreciated. Cardiovascular: Regular rate and rhythm with a normal S1 and S2. No gallops, murmurs, or rubs. Normal PMI, no JVD. No pulse deficits. Respiratory: Lungs have equal breath sounds bilaterally, clear to auscultation and percussion. No rales, rhonchi or wheezes noted. No increased work of breathing, no retractions or nasal flaring. Abdomen/GI: Soft, non-tender, with normal bowel sounds. No distension or tympany. No guarding or rebound. No evidence of tenderness throughout. Back: No spinal tenderness. No costovertebral tenderness. Full range of motion. 22:05 MS/ Extremity: Pulses equal, no cyanosis. Neurovascular intact. Full, normal range of motion. 22:05 Skin: Appearance: normal except for affected area, cellulitis, on the right astudillo. 22:05 Neuro: Orientation: is normal, Motor: is normal, moves all fours. Vital Signs: 21:41 BP 147 / 78; Pulse 98; Resp 20; Temp 101.2(O); Pulse Ox 94% on R/A; Weight 77.11 kg; tl2 Height 5 ft. 7 in. (170.18 cm); Pain 0/10; 22:30 BP 147 / 72; Pulse 92; Resp 28 S; Pulse Ox 94% on R/A; ca1 23:11 BP 119 / 59; Pulse 93; Resp 20 S; Temp 101.1(O); Pulse Ox 94% on R/A; ca1 23:58 BP 119 / 69; Pulse 70; Resp 22 S; Temp 98.5(O); Pulse Ox 94% on R/A; ca1 / 00:40 BP 119 / 48; Pulse 82; Resp 21 S; Temp 99.8(O); Pulse Ox 98% on R/A; ca1 01:45 BP 122 / 52; Pulse 67; Resp 18; Pulse Ox 95% on 2 lpm NC; mg2 11/13 21:41 Body Mass Index 26.63 (77.11 kg, 170.18 cm) tl2 MDM: 11/13 21:50 Patient medically screened. pm1 23:59 Data reviewed: vital signs. Data interpreted: Pulse oximetry: on room air is 94 %. pm1 Interpretation: normal. Counseling: I had a detailed discussion with the patient and/or guardian regarding: the historical points, exam findings, and any diagnostic results supporting the discharge/admit diagnosis, lab results, radiology results, the need for further work-up and treatment in the hospital. 11/13 21:45 Order name: Basic Metabolic Panel ca1 11/13 21:45 Order name: Blood Culture Adult (2) ca1 11/13 21:45 Order name: CBC with Diff ca1 11/13 21:45 Order name: Ckmb ca1 11/13 21:45 Order name: CPK ca1 11/13 21:45 Order name: Lactate ca1 11/13 21:45 Order name: LFT's ca1 11/13 21:45 Order name: Lipase ca1 11/13 21:45 Order name: Procalcitonin ca1 11/13 21:45 Order name: Protime (+inr); Complete Time: 22:52 ca1 11/13 21:45 Order name: Ptt, Activated; Complete Time: 22:52 ca1 11/13 21:45 Order name: Troponin (emerg Dept Use Only); Complete Time: 22:42 ca1 11/13 21:45 Order name: Urine Microscopic Only; Complete Time: 00:23 ca1 11/13 21:46 Order name: Basic Metabolic Panel; Complete Time: 22:42 EDMS 11/13 21:46 Order name: Blood Culture [facility] 11/13 21:46 Order name: CBC with Automated Diff; Complete Time: 00:23 [facility] 11/13 21:47 Order name: CKMB Creatine Kinase MB; Complete Time: 22:42 [facility] 11/13 21:47 Order name: Creatine Phosphokinase; Complete Time: 22:42 [facility] 11/13 21:47 Order name: Lactate; Complete Time: 23:08 [facility] 11/13 21:47 Order name: Liver (Hepatic) Function; Complete Time: 22:42 [facility] 11/13 21:47 Order name: Lipase; Complete Time: 22:42 [facility] 11/13 21:47 Order name: Procalcitonin; Complete Time: 00:35 [facility] 11/13 21:53 Order name: Glucose, Ancillary Testing; Complete Time: 21:59 [facility] 11/13 21:53 Order name: Flu; Complete Time: 23:08 pm 11/13 21:53 Order name: Strep; Complete Time: 23:08 pm 11/13 22:15 Order name: Manual Differential; Complete Time: 00:23 [facility] 11/13 22:56 Order name: Throat Culture [facility] 11/13 23:32 Order name: Urine Dipstick--Ancillary (enter results); Complete Time: 00:23 [facility] 11/14 01:27 Order name: Lactate Sepsis 2 HR Follow-up; Complete Time: 02:07 [facility] 11/13 21:45 Order name: Chest Single View XRAY [facility] 11/13 21:45 Order name: Accucheck; Complete Time: 22:11 [facility] 11/13 21:45 Order name: Cardiac monitoring; Complete Time: 22:11 [facility] 11/13 21:45 Order name: EKG - Nurse/Tech; Complete Time: 23:26 [facility] 11/13 21:45 Order name: IV Saline Lock - Large Bore; Complete Time: 22:11 [facility] 11/13 21:45 Order name: Labs collected and sent; Complete Time: 22:11 [facility] 11/13 21:45 Order name: O2 Per Protocol; Complete Time: 22:11 [facility] 11/13 21:45 Order name: O2 Sat Monitoring; Complete Time: 22:11 [facility] 11/13 21:45 Order name: Urine Dipstick-Ancillary (obtain specimen); Complete Time: 23:26 ca1 11/13 21:58 Order name: Extremity Venous Uni Ltd US pm1 11/14 01:05 Order name: CONS Pharmacy Consult EDMS 11/14 01:05 Order name: CONS Pharmacy Consult EDMS 11/14 01:05 Order name: Consistent Carb (ADA) 1800 Nura EDMS Administered Medications: 21:54 Drug: Tylenol 1000 mg Route: PO; ca1 23:27 Follow up: Response: No adverse reaction; Temperature is unchanged; Temperature is ca1 unchanged, NOTIFIED PROVIDER 22:10 Drug: Rocephin 1 grams Route: IV; Rate: calculated rate; Site: right antecubital; ca1 11/14 02:46 Follow up: Response: No adverse reaction; IV Status: Completed infusion mg2 11/13 22:11 Drug: NS 0.9% (30 ml/kg) 30 ml/kg Route: IV; Rate: bolus; Site: right antecubital; ca1 11/14 01:03 Follow up: Urine output 200 ml; Response: No adverse reaction; IV Status: Completed ca1 infusion 11/13 23:46 Drug: vancoMYCIN 1 grams Route: IVPB; Infused Over: 2 hrs; Site: right antecubital; ca1 11/14 01:04 Follow up: Response: No adverse reaction; IV Status: Infusion continued upon admission ca1 Disposition: 04:28 Co-signature as Attending Physician, Harhsad Virgen MD. [facility] Disposition: 11/14/18 00:01 Hospitalization ordered by Ezequiel Monteiro for Inpatient Admission. Preliminary diagnosis is Cellulitis of right lower limb. - Bed requested for Telemetry/MedSurg (Inpatient). - Status is Inpatient Admission. mg2 - Condition is Stable. - Problem is new. - Symptoms have improved. UTI on Admission? No Signatures: Dispatcher [employer] [facility] Katie Brandt RN RN Harshad Virgen MD MD pkl Fer Douglass, BONE GLUE MAKER BONE GLUE MAKER pm1 Stacy Pfeiffer RN RN tl2 Cody Doherty RN RN mg2 Macey Alvarez RN RN ca1 Corrections: (The following items were deleted from the chart) 01:08 00:47 LACTATE+C.LAB.BRZ ordered. [facility] EDTX 01:46 00:01 Hospitalization Ordered by Ezequiel Monteiro MD for Inpatient Admission. Preliminary diagnosis is Cellulitis of right lower limb. Bed requested for Telemetry/MedSurg (Inpatient). Status is Inpatient Admission. Condition is Stable. Problem is new. Symptoms have improved. UTI on Admission? No. pm1 02:59 01:46 11/14/2018 00:01 Hospitalization Ordered by Ezequiel Monteiro MD for Inpatient mg2 Admission. Preliminary diagnosis is Cellulitis of right lower limb. Bed requested for Telemetry/MedSurg (Inpatient). Status is Inpatient Admission. Condition is Stable. Problem is new. Symptoms have improved. UTI on Admission? No. mw
[2018-11-14 00:07] LABS: Anisocytosis 1+; Blood Morphology Comment NOTED (NOT SEEN); Platelet Estimate ADEQ
[2018-11-14] MEDS ORDERED: NA CHLORIDE 0.9% 1,000 ML ONE (00:42)
[2018-11-14] MEDS ORDERED: ONDANSETRON 4 MG/2 ML VIAL IV PRN (00:59)
[2018-11-14] MEDS ORDERED: MORPHINE 4 MG/ML SYR IV PRN (00:59)
[2018-11-14] MEDS ORDERED: ACETAMINOPHEN 500 MG TAB PO PRN (00:59)
[2018-11-14] MEDS ORDERED: Levofloxacin500mg IV 500 MG/100 ML BAG IV SCH (01:00)
[2018-11-14] MEDS ORDERED: NA CHLORIDE 0.9% 1,000 ML IV SCH (01:00)
[2018-11-14] MEDS ORDERED: VANCOMYCIN 500 MG in NA CHLORIDE 0.9% 100 ML IVPB ONE (02:45)
[2018-11-14 03:19] VITALS: O2SAT 95
[2018-11-14] MEDS ORDERED: VANCOMYCIN 500 MG/VIAL ONE (04:19)
[2018-11-14] MEDS ORDERED: NA CHLORIDE 0.9% 100 ML ONE (04:19)
[2018-11-14 05:44] VITALS: BMI 35.6
--- NOTE | 2018-11-14 08:04 | RAD REPORT ---
EXAM DESCRIPTION: USExthalie Venous Uni Ltd11/13/2018 10:58 pm CLINICAL HISTORY: Right leg pain and swelling. COMPARISON: None. FINDINGS: Right common femoral, superficial femoral, popliteal and right posterior tibial veins are compressible and demonstrate augmentation. Doppler demonstrates good flow. IMPRESSION: No evidence of deep venous thrombosis involving the right lower extremity.
--- NOTE | 2018-11-14 08:17 | RAD REPORT ---
EXAM DESCRIPTION: Manjinder Single View11/13/2018 10:07 pm CLINICAL HISTORY: Fever COMPARISON: August 2018 FINDINGS: Right pulmonary opacities have mostly resolved since the prior exam Left lung appears clear of acute infiltrate Heart is mildly enlarged
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
[2018-11-14 08:59] LABS: Absolute Lymphocytes (CBC) 0.6 K/uL (0.7-4.9); Basophils % 0.6 % (0-1.3); Eosinophils % 0.2 % (0-4.4); Hematocrit 37.4 % (39.6-49.0); Lymphocytes % 5.5 % (15.3-44.8); MPV 7.7 fL (7.6-11.3); Monocytes % 5.5 % (3.3-12.3); RBC Red Blood Cell Count 4.32 M/uL (4.33-5.43)
[2018-11-14 09:22] LABS: Urine White Blood Cell Casts OK
[2018-11-14 09:23] LABS: Anisocytosis 1+; Blood Morphology Comment NOTED (NOT SEEN); Ovalocytes 1+; Platelet Estimate ADEQ
[2018-11-14 10:36] LABS: Albumin 3.2 g/dL (3.4-5.0); Bilirubin Total 0.5 mg/dL (0.2-1.0); Magnesium 1.9 mg/dL (1.8-2.4); Phosphorus 2.5 mg/dL (2.5-4.9); Potassium 3.7 mmol/L (3.5-5.1); Protein, Total 7.6 g/dL (6.4-8.2); Troponin I 0.1 ng/mL (0.0-0.045)
[2018-11-14 12:49] VITALS: BP 123/57; TEMP 98.8
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
--- NOTE | 2018-11-14 15:07 | EKG ---
Test Date: 2018-11-13 Test Time: 22:19:04 Surplus Property Disposal Agent: DELMER MEASUREMENT RESULTS: Intervals: Rate: 92 [place]: 228 QRSD: 88 QT: 342 QTc: 422 [place]: P: 83 [place]: 228 QRS: 75 T: 24 INTERPRETIVE STATEMENTS: Sinus rhythm with 1st degree AV block Nonspecific ST abnormality Abnormal ECG Compared to ECG 09/27/2018 04:45:56 Sinus arrhythmia no longer present Myocardial infarct finding no longer present Possible ischemia no longer present ST (T wave) deviation still present Electronically Signed On 11-14-18 15:06:41 CDT by Kings Becerra
[2018-11-15] MEDS ORDERED: VANCOMYCIN 1.75 GM in NA CHLORIDE 0.9% 500 ML IV SCH (09:00)
[2018-11-15] MEDS ORDERED: VANCOMYCIN 1 GM, VANCOMYCIN 500 MG in NA CHLORIDE 0.9% 500 ML IV SCH (12:00)
== END 2018-11-14 13:28 | disposition home or self-care (01) ==
LOC: ER 21:22 → ERHOLD 11-14 00:59 → INTOOBSV 11-14 00:59 → 4TH 11-14 02:44
PROVIDERS: ADMIT Hospitalist; ATTEND Family Medicine
DX: L03.115 Cellulitis of right lower limb (principal); J96.20 Acute and chronic respiratory failure, unspecified whether with hypoxia or hypercapnia; E11.9 Type 2 diabetes mellitus without complications; E78.5 Hyperlipidemia, unspecified; I11.0 Hypertensive heart disease with heart failure; I50.32 Chronic diastolic (congestive) heart failure; I25.10 Atherosclerotic heart disease of native coronary artery without angina pectoris; K21.9 Gastro-esophageal reflux disease without esophagitis; J44.9 Chronic obstructive pulmonary disease, unspecified; I44.0 Atrioventricular block, first degree; R94.31 Abnormal electrocardiogram [ECG] [EKG]; Z79.84 Long term (current) use of oral hypoglycemic drugs; Z79.51 Long term (current) use of inhaled steroids; Z79.82 Long term (current) use of aspirin; Z79.899 Other long term (current) drug therapy; Z87.891 Personal history of nicotine dependence; Z99.81 Dependence on supplemental oxygen
CPT/HCPCS: 96365; 96367; 93005; 87040 ×2; 87070; 85025 ×2; 80048; 36415 ×2; 83735; 82550; 84100; 85610; 82962 ×3; 80076; 87081; 83605 ×3; 85730; 84484 ×2; 82553; 83690; 80053; 84145; 87804 ×2; 71045; 93971; 99285; 96366; J0696; J7030 ×2; G0378 ×2; 81003; 81015

== ENCOUNTER 2021-05-01 08:56 | Observation (INO) | payer OTHER ==
--- OUTSIDE RECORDS SUMMARY | 2021-05-01 08:58 | XMS REPORT | Continuity of Care Document ---
:1940 Author Organization [facility] t Address [address] [place] [address] Care Team Providers Name Role Phone Unavailable Unavailable Unavailable Payers Payer Name Policy Type Policy Number Effective Date Expiration Date S [facility] [id number] 2021 (MEDICARE 00:00:00 REPLACEMENT HMO) Problems This patient has no known problems. Allergies, Adverse Reactions, Alerts This patient has no known allergies or adverse reactions. Medications This patient has no known medications. Procedures This patient has no known procedures. Encounters Start End Encounter Admission Attending Care Care Encounter Source Date/Time Date/Time Type Type Clinicians Facility Department ID 2021-02-23 2021-02-23 Outpatient [facility] [id number] [facility] 08:02:00 08:02:00 10[facility] Results This patient has no known results.
[2021-05-01] MEDS ORDERED: NA CHLORIDE 0.9% 1,000 ML ONE (09:45)
[2021-05-01 10:11] LABS: Absolute Lymphocytes (CBC) 0.8 K/uL (0.7-4.9); Hematocrit 39.3 % (39.6-49.0); Lymphocytes % 11.6 % (15.3-44.8); MPV 7.1 fL (7.6-11.3); Protime INR 1.08
[2021-05-01 10:28] LABS: Albumin 2.6 g/dL (3.4-5.0); Bilirubin Direct 0.2 mg/dL (0-0.2); Bilirubin Total 0.6 mg/dL (0.2-1.0); Magnesium 2.5 mg/dL (1.8-2.4); Potassium 3.5 mmol/L (3.5-5.1); Protein, Total 7.4 g/dL (6.4-8.2); Troponin (Emerg Dept Use Only) 0.06 ng/mL (0.0-0.045)
[2021-05-01 10:44] LABS: Urine Blood Negative (Negative); Urine Glucose Trace (Negative); Urine Protein Negative (Negative); Urine pH 6.5 (5.0-7.0)
--- NOTE | 2021-05-01 11:16 | RAD REPORT ---
EXAM DESCRIPTION: RAD - Femur Left - 05/01/2021 10:39 am CLINICAL HISTORY: PAIN, fall COMPARISON: None. FINDINGS: No fracture or dislocation of the proximal femur. Degenerative changes are present along t he superior acetabular rim. Femoral head maintains smooth rounded contour. Remainder the femur is als o intact. Degenerative changes are present at the knee joint more prominent in the lateral compartmen t. Imaging is not adequate for left knee joint effusion assessment. Also, imaging is not adequate for evaluation of any possible left hemipelvis fracture. No pathologic bone changes. No suspicious soft tissue finding. No foreign body. IMPRESSION: Left hip joint degenerative change with no femur fracture identifiable. The images are not adequate for evaluation of any possible pelvic fracture.
--- NOTE | 2021-05-01 11:17 | RAD REPORT ---
EXAM DESCRIPTION: RAD - Tib Fib Left - 05/01/2021 10:39 am CLINICAL HISTORY: Fall, leg pain COMPARISON: None. FINDINGS: No acute fracture changes are present. Areas of cortical thinning are present in the midsh aft tibia where there is a bone screw in place. The bone screw is fractured without displacement of t he pieces. Remodeling of a proximal left fibula fracture is present. No active process at either of t hese 2 locations identifiable. No pathologic bone process. Imaging is not adequate for possible knee joint effusion assessment. No foreign body or other soft tissue abnormality. IMPRESSION: Chronic changes to the midshaft tibia and proximal fibula as detailed. No acute findings identified.
--- NOTE | 2021-05-01 11:18 | RAD REPORT ---
EXAM DESCRIPTION: RAD - Chest Single View - 05/01/2021 10:39 am CLINICAL HISTORY: COUGH COMPARISON: Portable October 2018 TECHNIQUE: AP portable chest image was obtained 05/01/2021 10:39 am . FINDINGS: No acute lung parenchymal process. Interstitial pattern matches comparison. Heart and vasc ulature are normal. No measurable pleural effusion and no pneumothorax. No acute bony abnormality see n. Concerns for rib fracture can be addressed with dedicated imaging. No acute aortic findings suspec leeanna. IMPRESSION: No acute cardiopulmonary process. No significant change from comparison study.
--- NOTE | 2021-05-01 11:44 | ER ---
Nurse's Notes [facility] Name: José Manuel Ferguson Jr Age: 81 yrs Sex: Male : 1940 Arrival Date: 05/01/2021 Time: 09: Bed 18 Private MD: Diagnosis: Fall on same level, unspecified;Diarrhea, unspecified;Weakness;Pain in left hip;Type 2 diabetes mellitus with hyperglycemia Presentation: 05/01 09:20 Chief complaint: Patient states: has been falling for past few days, has been weak and iw has had diarrhea for a couple days , is having pain in left leg that is worse after falling. Coronavirus screen: Client presents with at least one sign or symptom that may indicate coronavirus-19. Ebola Screen: Patient negative for fever greater than or equal to 101.5 degrees Fahrenheit, and additional compatible Ebola Virus Disease symptoms Patient denies exposure to infectious person. Patient denies travel to an Ebola-affected area in the 21 days before illness onset. No symptoms or risks identified at this time. Initial Sepsis Screen: Does the patient meet any 2 criteria? No. Patient's initial sepsis screen is negative. Does the patient have a suspected source of infection? No. Patient's initial sepsis screen is negative. Risk Assessment: Do you want to hurt yourself or someone else? Patient reports no desire to harm self or others. Onset of symptoms was April 28, 2021. 09:20 Method Of Arrival: Wheelchair iw 09:20 Acuity: YUNI 3 iw Historical: - Allergies: 09:23 No Known Allergies; iw - Home Meds: 09:23 metformin 1,000 mg oral tab 2 times per day [Active]; atorvastatin 40 mg oral tab 1 tab iw once daily [Active]; cholecalciferol (vitamin D3) oral daily [Active]; metoprolol succinate 25 mg oral Tb24 1 tab once daily [Active]; aspirin 81 mg Oral TbEC 1 tab once daily [Active]; Albuterol Nebulizer [Active]; - PMHx: 09:23 COPD; Diabetes - NIDDM; High Cholesterol; Hypertension; iw - Immunization history:: Client reports having NOT received the Covid vaccine. - Social history:: Smoking status: Patient/guardian denies using tobacco. - Family history:: not pertinent. Screenin:54 Abuse screen: Denies threats or abuse. Nutritional screening: No deficits noted. ae4 10:23 Fall Risk Fall in past 12 months (25 points). No secondary diagnosis (0 pts). IV access ae4 (20 points). Ambulatory Aid- None/Bed Rest/Nurse Assist (0 pts). Gait- Weak (10 pts.). Mental Status- Oriented to own ability (0 pts). 12:13 Tuberculosis screening: No symptoms or risk factors identified. ae4 Assessment: 10:10 Reassessment: Patient attempted to provide urine sample, unable to urinate at this time.ae4 10:12 General: Appears in no apparent distress. uncomfortable, obese, Behavior is ae4 cooperative, anxious. Pain: Denies pain. Neuro: Level of Consciousness is awake, alert, obeys commands, Oriented to person, place, situation. Cardiovascular: Skin cool and dry. Respiratory: Airway is patent Respiratory effort is even, unlabored, Respiratory pattern is regular, symmetrical. GI: Abdomen is round obese, Bowel sounds present X 4 quads. : Reports Patient is unable to provide urine sample at this time. Patient attempted to urinate in urinal and was unable to urinate. EENT: Skin is dry. Derm: Skin is pale. 10:12 Musculoskeletal: Reports Generalized weakness. ae4 12:12 Reassessment: Patient is resting, niece of patient is at bedside. ae4 13:43 Reassessment: Patient was resting with eyes closed, respirations even and unlabored, ae4 Oxygent dropped to 92%, place on nasal cannula, at 1.5 liters, oxygen saturation now at 100%. Vital Signs: 09:20 Resp 16; Temp 97.8; Weight 102.06 kg; Height 5 ft. 6 in. (167.64 cm); iw 09:25 BP 149 / 81; Pulse 62; Pulse Ox 98% on R/A; iw 10:47 BP 176 / 74; Pulse 57; Resp 19; Pulse Ox 99% on R/A; ae4 11:51 BP 194 / 78; Pulse 55; Resp 19; Pulse Ox 98% on R/A; ae4 12:10 BP 182 / 65; Pulse 61; Resp 18; Pulse Ox 95% on R/A; ae4 13:43 BP 166 / 67; Pulse 55; Resp 16; Pulse Ox 100% on 1.5 lpm NC; ae4 16:00 BP 169 / 73; Pulse 57; Resp 17; Pulse Ox 96% on R/A; ae4 16:30 BP 155 / 73; Pulse 55; Resp 17; Pulse Ox 94% on R/A; ae4 17:00 BP 158 / 68; Pulse 53; Resp 17; Pulse Ox 95% ; ae4 18:00 BP 158 / 68; Pulse 62; Resp 16; Pulse Ox 96% on R/A; ae4 18:16 BP 144 / 72; Pulse 66; Resp 17; Pulse Ox 95% on R/A; ae4 09:20 Body Mass Index 36.32 (102.06 kg, 167.64 cm) iw ED Course: 09:01 Patient arrived in ED. ds1 09:23 Triage completed. iw 09:26 Arm band placed on. iw 09:27 Vamshi Matamoros MD is Attending Physician. oscar 09:34 Rommel Tracy RN is Primary Nurse. ae4 09:45 Inserted saline lock: 20 gauge in right antecubital area, using aseptic technique. ae4 ,using aseptic technique. Inserted by [facility] Blood collected. 10:23 Bed in low position. Call light in reach. Side rails up X2. Adult w/ patient. Cardiac ae4 monitor on. Pulse ox on. NIBP on. Warm blanket given. 10:24 SARS-COV-2 RT PCR (Document "Date of Onset" if Symptomatic) Sent. kj1 10:39 XRAY Chest (1 view) In Process Unspecified. EDMS 10:39 Femur Left XRAY In Process Unspecified. EDMS 10:39 Tib Fib Left XRAY In Process Unspecified. EDMS 11:42 Sergio Felder is Hospitalizing Provider. oscar 18:33 No provider procedures requiring assistance completed. Patient admitted, IV remains in ae4 place. Administered Medications: 09:47 Drug: NS 0.9% 500 ml Route: IV; Rate: bolus; Site: right antecubital; ae4 10:38 Drug: NS 0.9% 1000 ml Route: IV; Rate: 125 ml/hr; Site: right antecubital; ae4 11:58 Drug: Zofran (Ondansetron) 4 mg Route: IVP; Site: right antecubital; ae4 13:40 Follow up: Response: No adverse reaction; RASS: Light sedation (-2); No adverse ae4 reactionNo nausea reported with pain medication administration. 11:58 Drug: Aspirin Chewable Tablet 324 mg Route: PO; ae4 13:40 Follow up: Response: No adverse reaction ae4 12:01 Drug: morphine 4 mg Route: IVP; Site: right antecubital; ae4 13:39 Follow up: Response: No adverse reaction; Pain is decreased ae4 12:03 Drug: Pepcid (famotidine) 20 mg Route: IVP; Site: right antecubital; ae4 13:40 Follow up: Response: No adverse reaction ae4 Outcome: 11:43 Decision to Hospitalize by Provider. oscar 18:34 Admitted to Med/surg accompanied by tech, via stretcher, room 209, with chart, Report ae4 called to CLINT Seymour 18:34 Condition: stable 18:34 Instructed on the need for admit. 18:34 Patient left the ED. ae4 Signatures: Dispatcher [employer] EDMS Vamshi Matamoros MD MD cha Sanford, Demi ds1 Damaris Valenzuela, CLINT RN iw Jazlyn Garner mb4 Pia Blake kj1 Rommel Tracy RN RN ae4 Corrections: (The following items were deleted from the chart) 09:25 09:23 PMHx: continuous home O2, 2L NC; iw iw 09:26 09:25 Pulse 62bpm; Pulse Ox 98% RA; mb4 iw
--- NOTE | 2021-05-01 11:44 | EDPHYS ---
Physician Documentation [facility] Name: José Manuel Ferguson Jr Age: 81 yrs Sex: Male : 1940 Arrival Date: 05/01/2021 Time: 09: Bed 18 Private MD: DULCE Physician Vamshi Matamoros HPI: 05/01 11:28 This 81 yrs old Male presents to ER via Wheelchair with complaints of oscar Diarrhea. 11:28 The patient presents to the emergency department with diarrhea, that is continuous. oscar Onset: The symptoms/episode began/occurred 3 day(s) ago. Possible causes: unknown. The symptoms are aggravated by nothing. The symptoms are alleviated by nothing. 11:29 The patient or guardian reports an injury, pain. The complaints affect the left hip. oscar Details of fall: The patient fell from an upright position, while standing. Associated injuries: The patient sustained left hip and left upper thigh, decreased range of motion, painful injury. Associated signs and symptoms: Loss of consciousness: the patient experienced no loss of consciousness, Pertinent positives: diarrhea, weakness. It is unknown whether or not the patient has had similar symptoms in the past. Historical: - Allergies: 09:23 No Known Allergies; iw - Home Meds: 09:23 metformin 1,000 mg oral tab 2 times per day [Active]; atorvastatin 40 mg oral tab 1 tab iw once daily [Active]; cholecalciferol (vitamin D3) oral daily [Active]; metoprolol succinate 25 mg oral Tb24 1 tab once daily [Active]; aspirin 81 mg Oral TbEC 1 tab once daily [Active]; Albuterol Nebulizer [Active]; - PMHx: 09:23 COPD; Diabetes - NIDDM; High Cholesterol; Hypertension; iw - Immunization history:: Client reports having NOT received the Covid vaccine. - Social history:: Smoking status: Patient/guardian denies using tobacco. - Family history:: not pertinent. ROS: 11:30 Constitutional: Negative for fever, chills, and weight loss, Eyes: Negative for injury, oscar pain, redness, and discharge, ENT: Negative for injury, pain, and discharge, Neck: Negative for injury, pain, and swelling, Cardiovascular: Negative for chest pain, palpitations, and edema, Respiratory: Negative for shortness of breath, cough, wheezing, and pleuritic chest pain, Abdomen/GI: Negative for abdominal pain, nausea, vomiting, diarrhea, and constipation, Back: Negative for injury and pain, : Negative for injury, bleeding, discharge, and swelling, Skin: Negative for injury, rash, and discoloration, Neuro: Negative for headache, weakness, numbness, tingling, and seizure, Psych: Negative for depression, anxiety, suicide ideation, homicidal ideation, and hallucinations, Allergy/Immunology: Negative for hives, rash, and allergies, Endocrine: Negative for neck swelling, polydipsia, polyuria, polyphagia, and marked weight changes, Hematologic/Lymphatic: Negative for swollen nodes, abnormal bleeding, and unusual bruising. 11:30 MS/extremity: Positive for injury or acute deformity, decreased range of motion, pain, tenderness, of the left hip and left upper thigh. Exam: 11:30 Constitutional: This is a well developed, well nourished patient who is awake, alert, oscar and in no acute distress. Head/Face: Normocephalic, atraumatic. Eyes: Pupils equal round and reactive to light, extra-ocular motions intact. Lids and lashes normal. Conjunctiva and sclera are non-icteric and not injected. Cornea within normal limits. Periorbital areas with no swelling, redness, or edema. ENT: Nares patent. No nasal discharge, no septal abnormalities noted. Tympanic membranes are normal and external auditory canals are clear. Oropharynx with no redness, swelling, or masses, exudates, or evidence of obstruction, uvula midline. Mucous membranes moist. Neck: Trachea midline, no thyromegaly or masses palpated, and no cervical lymphadenopathy. Supple, full range of motion without nuchal rigidity, or vertebral point tenderness. No Meningismus. Chest/axilla: Normal chest wall appearance and motion. Nontender with no deformity. No lesions are appreciated. Cardiovascular: Regular rate and rhythm with a normal S1 and S2. No gallops, murmurs, or rubs. Normal PMI, no JVD. No pulse deficits. Respiratory: Lungs have equal breath sounds bilaterally, clear to auscultation and percussion. No rales, rhonchi or wheezes noted. No increased work of breathing, no retractions or nasal flaring. Abdomen/GI: Soft, non-tender, with normal bowel sounds. No distension or tympany. No guarding or rebound. No evidence of tenderness throughout. Back: No spinal tenderness. No costovertebral tenderness. Full range of motion. Male : Normal genitalia with no discharge or lesions. Skin: Warm, dry with normal turgor. Normal color with no rashes, no lesions, and no evidence of cellulitis. Neuro: Awake and alert, GCS 15, oriented to person, place, time, and situation. Cranial nerves II-XII grossly intact. Motor strength 5/5 in all extremities. Sensory grossly intact. Cerebellar exam normal. Normal gait. Psych: Awake, alert, with orientation to person, place and time. Behavior, mood, and affect are within normal limits. 11:30 Musculoskeletal/extremity: ROM: limited active range of motion due to pain, limited passive range of motion due to pain, Circulation is intact in all extremities. Sensation intact. Compartment Syndrome exam of affected extremity: is normal. Weight bearing: is unable to bear weight, DVT Exam: no swelling, negative Homans' sign noted on exam, no appreciated bluish discoloration, no erythema, no increased warmth, pain, tenderness. 11:30 Neuro: Orientation: is normal, appropriate for stated age, no acute changes, Mentation: appropriate for stated age, no acute changes, Memory: no acute changes, Cranial nerves: grossly normal, is grossly normal based on the patient's age, no acute changes, Motor: moves all fours, strength is normal, strength is 5/5 in all extremities, Gait: not applicable is steady, appropriate for age, Babinski testing is normal. 11:30 Psych: Behavior/mood is pleasant, cooperative, Affect is calm, Patient has no thoughts/intents to harm self or others. Judgement / Insight is normal. Memory is normal. 11:41 ECG was reviewed by the Attending Physician. oscar Vital Signs: 09:20 Resp 16; Temp 97.8; Weight 102.06 kg; Height 5 ft. 6 in. (167.64 cm); iw 09:25 BP 149 / 81; Pulse 62; Pulse Ox 98% on R/A; iw 10:47 BP 176 / 74; Pulse 57; Resp 19; Pulse Ox 99% on R/A; ae4 11:51 BP 194 / 78; Pulse 55; Resp 19; Pulse Ox 98% on R/A; ae4 12:10 BP 182 / 65; Pulse 61; Resp 18; Pulse Ox 95% on R/A; ae4 13:43 BP 166 / 67; Pulse 55; Resp 16; Pulse Ox 100% on 1.5 lpm NC; ae4 16:00 BP 169 / 73; Pulse 57; Resp 17; Pulse Ox 96% on R/A; ae4 16:30 BP 155 / 73; Pulse 55; Resp 17; Pulse Ox 94% on R/A; ae4 17:00 BP 158 / 68; Pulse 53; Resp 17; Pulse Ox 95% ; ae4 18:00 BP 158 / 68; Pulse 62; Resp 16; Pulse Ox 96% on R/A; ae4 18:16 BP 144 / 72; Pulse 66; Resp 17; Pulse Ox 95% on R/A; ae4 09:20 Body Mass Index 36.32 (102.06 kg, 167.64 cm) iw MDM: 09:27 Patient medically screened. oscar 11:34 Differential diagnosis: hip fracture, intertrochanteric fracture, femoral neck oscar fracture, Nonspecific abd pain, diverticulitis. Differential diagnosis: contusion, fracture, multiple trauma, sprain, strain. Data reviewed: vital signs, nurses notes, lab test result(s), EKG, radiologic studies, plain films. Data interpreted: vehicle monitor technician: rate is 57 beats/min, rhythm is regular, Pulse oximetry: on room air. Test interpretation: by ED physician or midlevel provider: ECG, plain radiologic studies. Counseling: I had a detailed discussion with the patient and/or guardian regarding: the historical points, exam findings, and any diagnostic results supporting the discharge/admit diagnosis, radiology results. 05/01 09:38 Order name: Basic Metabolic Panel [facility] 05/01 09:38 Order name: CBC with Diff [facility] 05/01 09:38 Order name: LFT's [facility] 05/01 09:38 Order name: Magnesium; Complete Time: 11:15 [facility] 05/01 09:38 Order name: NT PRO-BNP; Complete Time: 11:15 [facility] 05/01 09:38 Order name: PT-INR; Complete Time: 11:15 [facility] 05/01 09:38 Order name: Troponin (emerg Dept Use Only); Complete Time: 11:15 [facility] 05/01 09:38 Order name: Lipase; Complete Time: 11:15 [facility] 05/01 09:38 Order name: Fecal Leukocyte Stain [facility] 05/01 09:38 Order name: Stool Culture [facility] 05/01 09:38 Order name: SARS-COV-2 RT PCR (Document "Date of Onset" if Symptomatic); Complete Time: [facility] 11:15 05/01 09:38 Order name: Urine Culture [facility] 05/01 09:38 Order name: Lactate; Complete Time: 11:15 [facility] 05/01 09:38 Order name: Basic Metabolic Panel; Complete Time: 11:15 [facility] 05/01 09:38 Order name: XRAY Chest (1 view) [facility] 05/01 09:38 Order name: Femur Left XRAY [facility] 05/01 09:38 Order name: Tib Fib Left XRAY [facility] 05/01 09:38 Order name: CBC with Automated Diff; Complete Time: 11:15 [facility] 05/01 09:38 Order name: Liver (Hepatic) Function; Complete Time: 11:15 EDMS 05/01 10:44 Order name: Urine Dipstick-Ancillary; Complete Time: 11:15 [facility] 05/01 14:41 Order name: Comprehensive Metabolic Panel [facility] 05/01 14:41 Order name: Comprehensive Metabolic Panel EDMS 05/01 14:41 Order name: Protime (+INR) EDMS 05/01 14:41 Order name: CBC with Automated Diff EDMS 05/01 14:41 Order name: CBC with Automated Diff EDMS 05/01 14:41 Order name: Protime (+INR) EDMS 05/01 14:41 Order name: PTT, Activated Partial Thromb EDMS 05/01 14:41 Order name: PTT, Activated Partial Thromb EDMS 05/01 14:42 Order name: C.difficile GDH Ag EDMS 05/01 17:00 Order name: Glucose, Ancillary Testing EDMS 05/01 09:38 Order name: EKG; Complete Time: 09:39 [facility] 05/01 09:38 Order name: Cardiac monitoring; Complete Time: 09:58 [facility] 05/01 09:38 Order name: EKG - Nurse/Tech; Complete Time: 09:58 [facility] 05/01 09:38 Order name: IV Saline Lock; Complete Time: 09:58 [facility] 05/01 09:38 Order name: Labs collected and sent; Complete Time: 09:58 [facility] 05/01 09:38 Order name: O2 Per Protocol; Complete Time: 09:43 [facility] 05/01 09:38 Order name: O2 Sat Monitoring; Complete Time: 09:42 oscar 05/01 09:38 Order name: Urine Dipstick-Ancillary (obtain specimen); Complete Time: 10:46 oscar 05/01 14:41 Order name: Full Liquid EDMS 05/01 14:43 Order name: Abdomen EDMS EC:41 Rate is 59 beats/min. QRS [place] is Normal. WA interval is prolonged at 59 msec. QRS oscar interval is normal. QT interval is normal. No Q waves. T waves are Normal. No ST changes noted. Clinical impression: 1st degree heart block, Sinus bradycardia, and No evidence of ischemia. Interpreted by me. Reviewed by me. Administered Medications: 09:47 Drug: NS 0.9% 500 ml Route: IV; Rate: bolus; Site: right antecubital; ae4 10:38 Drug: NS 0.9% 1000 ml Route: IV; Rate: 125 ml/hr; Site: right antecubital; ae4 11:58 Drug: Zofran (Ondansetron) 4 mg Route: IVP; Site: right antecubital; ae4 13:40 Follow up: Response: No adverse reaction; RASS: Light sedation (-2); No adverse ae4 reactionNo nausea reported with pain medication administration. 11:58 Drug: Aspirin Chewable Tablet 324 mg Route: PO; ae4 13:40 Follow up: Response: No adverse reaction ae4 12:01 Drug: morphine 4 mg Route: IVP; Site: right antecubital; ae4 13:39 Follow up: Response: No adverse reaction; Pain is decreased ae4 12:03 Drug: Pepcid (famotidine) 20 mg Route: IVP; Site: right antecubital; ae4 13:40 Follow up: Response: No adverse reaction ae4 Disposition Summary: 05/01/21 11:43 Hospitalization Ordered Hospitalization Status: Inpatient Admission oscar Provider: Sergio Felder cha Condition: Fair oscar Problem: new oscar Symptoms: have improved oscar Bed/Room Type: Standard oscar Location: Telemetry/MedSurg (Inpatient)(05/01/21 17:38) dw Room Assignment: 206(05/01/21 17:38) dw Diagnosis - Fall on same level, unspecified oscar - Diarrhea, unspecified oscar - Weakness oscar - Pain in left hip oscar - Type 2 diabetes mellitus with hyperglycemia oscar Forms: - Medication Reconciliation Form oscar - SBAR form oscar Signatures: Dispatcher [employer] Kinjal Ayoub RN RN dw Anderson, Corey, MD MD cha Williams, Irene, RN Rommel Carlisle RN RN ae4 Corrections: (The following items were deleted from the chart) : 09:23 PMHx: continuous home O2, 2L NC; iw iw 14: 11:43 Telemetry/MedSurg (Inpatient) oscar iw : 11:43 oscar iw 17:38 14:11 [facility] ER HOLD iw dw 17:38 14:11 ERHOLD- dw
[2021-05-01] MEDS ORDERED: ASPIRIN 81 MG CHEWABLE TABLET ONE (11:55)
[2021-05-01] MEDS ORDERED: FAMOTIDINE 20 MG/2 ML VIAL IV ONE (11:56)
[2021-05-01] MEDS ORDERED: ONDANSETRON 4 MG/2 ML VIAL ONE (11:56)
[2021-05-01] MEDS ORDERED: MORPHINE 4 MG/ML SYR ONE (11:56)
[2021-05-01] MEDS ORDERED: ONDANSETRON 4 MG/2 ML VIAL IV PRN (14:39)
[2021-05-01] MEDS ORDERED: ACETAMINOPHEN 500 MG TAB PO PRN (14:39)
[2021-05-01] MEDS ORDERED: MORPHINE 2 MG/ML SYR IV PRN (14:39)
[2021-05-01] MEDS ORDERED: LOPERAMIDE HCL 2 MG CAPSULE PO PRN (14:41)
[2021-05-01] MEDS ORDERED: GLUCAGON 1 MG/VIAL IM PRN (14:44)
[2021-05-01] MEDS ORDERED: D50W 25 GM/50 ML SYRINGE IV PRN (14:44)
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
--- NOTE | 2021-05-01 16:12 | RAD REPORT ---
EXAM DESCRIPTION: CT - Abdomen Pelvis W Contrast - 05/01/2021 3:23 pm CLINICAL HISTORY: diarrhea COMPARISON: No comparisons TECHNIQUE: Biphasic, helical CT imaging of the abdomen and pelvis was performed following 100 ml non -ionic IV contrast. No oral contrast administered. All CT scans are performed using dose optimization technique as appropriate and may include automated exposure control or mA/KV adjustment according to patient size. FINDINGS: No suspicious findings in the lung bases. No cardiomegaly or pericardial effusion seen. The liver shows a nodular capsule contour with no focal liver parenchymal lesion. No portal vein abno rmality identified. Pancreas and spleen show no suspicious findings. Gallbladder and biliary tree are also without suspicious finding. Renal function is symmetric but delayed. There is moderate severity bilateral hydronephrosis and hydr oureter down to the UVJ level. Well filled bladder shows no wall thickening or mass. No ureterocele i dentifiable. No pyelonephritis or acute parenchymal process. No bladder calculus. No adrenal abnormal ities. For minimal hiatal hernia is present. Stomach is decompressed which accentuates wall thickness. No as ymmetric wall thickening or enhancing mass identifiable. Ospina of the duodenum are mildly prominent. The distal antritis/ duodenitis cannot be excluded. Remainder the duodenum is unremarkable. Small bow el loops are not dilated. No colon dilatation. No gross evidence for a colon mass. No appendicitis id entified. Ospina of the cecum and ascending colon are mildly prominent. No free air or pneumatosis. Trace amount of stranding is seen in each colic gutter there is a minima l amount of fluid adjacent to the liver capsule. No mass, omental thickening or bulky lymphadenopath y. Small bilateral fat filled inguinal hernias are present. No acute bone finding. Degenerative changes are present. No acute vascular finding. IMPRESSION: No bowel obstruction, free air or surgically emergent finding identifiable. No acute GI process confirmed. A mild right-sided colitis is possible. Colonoscopy would be needed f or full right colon assessment. Moderate severity bilateral hydronephrosis down a each UVJ without obstructing mass, calculus or uret erocele identified. This dilatation is probably chronic. Cirrhosis or diffuse hepatic parenchymal changes to the liver. No focal liver lesions seen.
[2021-05-01] MEDS: INSULIN -REGULAR HUMAN 50 UNIT/0.5 ML ML SQ SCH ×2 (16:30→21:46)
[2021-05-01] MEDS ORDERED: METHYLPREDNISOLONE 40 MG INJ ONE (18:17)
[2021-05-01] MEDS: METHYLPREDNISOLONE 40 MG INJ IV SCH (18:20)
[2021-05-01 18:59] VITALS: O2SAT 95
[2021-05-01 20:02] VITALS: BMI 31.1
[2021-05-01] MEDS: NA CHLORIDE 0.9% 1,000 ML IV SCH (21:45)
[2021-05-02] MEDS: NA CHLORIDE 0.9% 1,000 ML IV SCH (01:00)
[2021-05-02 01:07] LABS: Urine Appearance CLEAR (Clear); Urine Bilirubin NEGATIVE (Negative); Urine Blood NEGATIVE (Negative); Urine Color YELLOW (Yellow); Urine Glucose 1+ (Negative); Urine Protein NEGATIVE (Negative); Urine Specific Gravity 1.015 (1.005-1.030); Urine Urobilinogen 0.2 mg/dL (0.2-1.0)
[2021-05-02 01:13] LABS: Urine Microscopic Reflex NO UMIC
[2021-05-02] MEDS: METHYLPREDNISOLONE 40 MG INJ IV SCH ×3 (01:44→16:40)
[2021-05-02 06:10] LABS: Absolute Lymphocytes (CBC) 0.4 K/uL (0.7-4.9); Hematocrit 39.5 % (39.6-49.0); Lymphocytes % 8.1 % (15.3-44.8); MPV 7.3 fL (7.6-11.3); RBC Red Blood Cell Count 4.71 M/uL (4.33-5.43)
[2021-05-02 06:15] LABS: Protime INR 1.02
[2021-05-02 06:50] LABS: Albumin 2.4 g/dL (3.4-5.0); Bilirubin Total 0.4 mg/dL (0.2-1.0); Potassium 4.1 mmol/L (3.5-5.1); Protein, Total 7.2 g/dL (6.4-8.2)
[2021-05-02] MEDS ORDERED: INFLUENZA VACCINE (for 6+ mo) 0.5 ML DOSE IMVAC ONE (08:00)
[2021-05-02] MEDS ORDERED: PNEUMOCOCCAL VACCINE 0.5 ML IMVAC ONE (08:00)
[2021-05-02] MEDS: INSULIN -REGULAR HUMAN 50 UNIT/0.5 ML ML SQ SCH ×3 (08:15→16:40)
[2021-05-02 09:06] LABS: Blood Morphology Comment NOT SEEN (NOT SEEN); Platelet Estimate ADEQ; White Blood Cell Scan OK (OK)
[2021-05-03 00:01] VITALS: BP 140/80; TEMP 98
--- NOTE | 2021-05-03 00:02 | P.DS ---
Discharge Date: 05/02/21 Disposition: ROUTINE DISCHARGE Discharge Condition: GOOD Reason for Admission: Persistent diarrhea; status post fall - Problems (1) Diarrhea Status: Acute (2) COPD (chronic obstructive pulmonary disease) Onset Date: 10/17/14 Status: Acute Qualifiers: (3) CAD (coronary artery disease) Onset Date: 07/03/17 Status: Chronic Qualifiers: (4) DM2 (diabetes mellitus, type 2) Onset Date: 07/03/17 Status: Chronic Qualifiers: (5) Hyperlipidemia Status: Chronic Qualifiers: (6) Hypertension Status: Chronic (7) Obesity Onset Date: 07/03/17 Status: Chronic Qualifiers: (8) Tobacco abuse counseling Onset Date: 07/03/17 Status: Chronic Brief History of Present Illness: Patient is a 81-year-old gentleman who came to the hospital with persistent diarrhea. This been going on for the last 5 days. Continues to worsen. Patient had a fall as well and fell on his left hip. Patient been having some pain. X-rays were negative. Patient be admitted for observation. Hospital Course: Patient done well during hospital stay. Diarrhea has resolved. Patient is having flatus. His family brought him what a burger. He was able to keep a down and tolerated. At this time, patient is doing well and is stable for discharge home. Vital Signs/Physical Exam: Temp Pulse Resp BP Pulse Ox 98 F 80 18 140/80 95 05/03/21 00:01 05/03/21 00:01 05/03/21 00:01 05/03/21 00:01 05/03/21 00:01 General: Alert, In no apparent distress, Oriented x3 Laboratory Data at Discharge: WBC 4.90 K/uL (4.3-10.9) D 05/02/21 05:25 Hgb 13.1 g/dL (13.6-17.9) L 05/02/21 05:25 Hct 39.5 % (39.6-49.0) L 05/02/21 05:25 Plt Count 299 K/uL (152-406) 05/02/21 05:25 PT 11.7 SECONDS (9.5-12.5) 05/02/21 05:25 INR 1.02 05/02/21 05:25 APTT 30.1 SECONDS (24.3-36.9) 05/02/21 05:25 Sodium 134 mmol/L (136-145) L 05/02/21 05:25 Potassium 4.1 mmol/L (3.5-5.1) 05/02/21 05:25 BUN 17 mg/dL (7-18) 05/02/21 05:25 Creatinine 1.12 mg/dL (0.55-1.3) 05/02/21 05:25 Glucose 262 mg/dL (74-106) H 05/02/21 05:25 Magnesium 2.5 mg/dL (1.8-2.4) H D 05/01/21 09:44 Total Bilirubin 0.4 mg/dL (0.2-1.0) 05/02/21 05:25 AST 43 U/L (15-37) H 05/02/21 05:25 ALT 48 U/L (12-78) 05/02/21 05:25 Alkaline Phosphatase 114 U/L (45-117) 05/02/21 05:25 Lipase 144 U/L (73-393) 05/01/21 09:44 Home Medications: Aspirin 1 tab PO DAILY 05/02/21 Atorvastatin Calcium 0.5 tab PO BEDTIME 05/02/21 Cefdinir [Omnicef] 300 mg PO BID #14 capsule 05/02/21 Cholecalciferol (Vitamin D3) [Vitamin D3] 2 cap PO DAILY 05/02/21 Metformin HCl 1 tab PO BID 05/02/21 Metoprolol Succinate 1 tab PO BEDTIME 05/02/21 metroNIDAZOLE [Flagyl] 500 mg PO Q8H #20 tablet 05/02/21 predniSONE [Deltasone] 20 mg PO DAILY #7 tab 05/02/21 New Medications: metroNIDAZOLE [Flagyl] 500 mg PO Q8H #20 tablet Cefdinir [Omnicef] 300 mg PO BID #14 capsule predniSONE [Deltasone] 20 mg PO DAILY #7 tab Physician Discharge Instructions: OK TO DC IV AND DC HOME FOLLOW-UP WITH PRIMARY CARE PROVIDER IN 1-2 WEEKS FOLLOW-UP WITH Gastroenterology IN 1-2 WEEKS RETURN TO THE ER IF symptoms worsen CALL or TEXT DR. SHEPPARD AT [phone] IF ANY QUESTIONS REGARDING HOSPITAL STAY. PLEASE CALL THE FLOOR AT [phone] IF ANY MEDICATION OR NURSING QUESTIONS. Diet: Regular Activity: Fall precautions Followup: Wali Franklin MD [Primary Care Provider] - (Call to schedule appointment) Time spent managing pt's care (in minutes): 35
== END 2021-05-02 18:50 | disposition home or self-care (01) ==
LOC: ER 08:56 → ERHOLD 14:43 → 2ND 18:14
PROVIDERS: ADMIT Hospitalist; ATTEND Hospitalist
DX: R19.7 Diarrhea, unspecified (principal); M25.552 Pain in left hip; W18.30XA Fall on same level, unspecified, initial encounter; J44.9 Chronic obstructive pulmonary disease, unspecified; E11.65 Type 2 diabetes mellitus with hyperglycemia; I11.0 Hypertensive heart disease with heart failure; I50.32 Chronic diastolic (congestive) heart failure; E78.5 Hyperlipidemia, unspecified; E66.9 Obesity, unspecified; R53.1 Weakness; Z20.822 Contact with and (suspected) exposure to COVID-19; Z82.49 Family history of ischemic heart disease and other diseases of the circulatory system; Z83.3 Family history of diabetes mellitus
CPT/HCPCS: 93005; 87088; 85025 ×2; 87086; 80048; 36415; 83735; 85610 ×2; 82947 ×5; 80076; 83605; 85730; 81003 ×2; 84484; 83690; 80053; 83880; 74177; 71045; 73552; 73590; 96375; 96374; 99285; U0003; Q9967; J7030 ×4; J2405; J2920 ×4; G0378 ×3

== ENCOUNTER 2021-05-17 20:11 | Inpatient (IN) | payer OTHER ==
--- OUTSIDE RECORDS SUMMARY | 2021-05-17 20:14 | XMS REPORT | Continuity of Care Document ---
:1940 Author Organization [facility] t Address [address] [place] [address] [place] [id number] Care Team Providers Name Role Phone Unavailable Unavailable Unavailable Payers Payer Name Policy Type Policy Number Effective Date Expiration Date S [facility] [id number] 2021 (MEDICARE 00:00:00 REPLACEMENT HMO) [...] Department ID 2021-02-23 2021-02-23 Outpatient DMG DMG [id number] [facility] 08:02:00 08:02:00 [id number] [facility] l [facility] Results This patient has no known results.
[2021-05-17 21:43] LABS: Absolute Lymphocytes (CBC) 0.2 K/uL (0.7-4.9); Hematocrit 39.8 % (39.6-49.0); Lymphocytes % 3.4 % (15.3-44.8); MPV 7.2 fL (7.6-11.3)
[2021-05-17 21:44] LABS: Protime INR 1.06
[2021-05-17 21:48] LABS: Urine Blood Trace-intact (Negative); Urine Glucose Negative (Negative); Urine Protein Negative (Negative); Urine pH 7.5 (5.0-7.0)
[2021-05-17] MEDS ORDERED: TETANUS & DIPHTHERIA TOX,ADULT 0.5 ML VIAL ONE (21:51)
[2021-05-17] MEDS ORDERED: ACETAMINOPHEN 325 MG TABLET ONE (21:51)
[2021-05-17] MEDS ORDERED: NA CHLORIDE 0.9% 1,000 ML ONE (21:52)
[2021-05-17 21:54] LABS: Bilirubin Direct 0.2 mg/dL (0-0.2); Bilirubin Total 0.5 mg/dL (0.2-1.0); C-Reactive Protein 11.9 mg/L (<3.00); Magnesium 2.4 mg/dL (1.8-2.4); Potassium 3.9 mmol/L (3.5-5.1); Protein, Total 7.8 g/dL (6.4-8.2)
[2021-05-17 22:19] LABS: Troponin High Sensitivity 184.3 pg/mL (<58.9)
--- NOTE | 2021-05-17 22:20 | RAD REPORT ---
EXAM DESCRIPTION: RAD - Chest Single View - 05/17/2021 9:33 pm CLINICAL HISTORY: FEVER COMPARISON: 05/01/2021 TECHNIQUE: AP portable chest image was obtained 05/17/2021 9:33 pm . FINDINGS: Interstitial opacities are present in the lung serrano similar to comparison. Patchy alveol ar opacification has increased in the lower right lung field without a large very of consolidation. T he hilar regions are stable. Heart and vasculature are normal. No measurable pleural effusion and no pneumothorax. No acute bony abnormality seen. No acute aortic findings suspected. IMPRESSION: Suspected early pneumonia right lower lung field.
[2021-05-17 22:21] LABS: SARS-COV-2 RT PCR POSITIVE (NEGATIVE)
[2021-05-17 22:32] LABS: Arterial Blood Carboxyhemoglob 1.7 % (0-1.5); Blood Gas Oxyhemoglobin 88.5 % (94-97)
[2021-05-17 22:41] LABS: Urine Bacteria <20 /HPF (NONE SEEN); Urine RBC <5 /HPF (NONE SEEN)
[2021-05-17] MEDS ORDERED: LORazepam 2 MG/ML VIAL ONE (22:44)
--- NOTE | 2021-05-17 23:15 | ER ---
Nurse's Notes [facility] Name: José Manuel Ferguson Jr Age: 81 yrs Sex: Male : 1940 Arrival Date: 05/17/2021 Time: 20:23 Bed 25 Private MD: Diagnosis: Covid 19 pneumonia. Hypoxia. Elevated Troponin. Diabetes. S/P Fall Presentation: 05/17 20:37 Chief complaint: EMS states: patient fell at home, has a temperature, all family sf1 members in the home are COVID +. Coronavirus screen: Vaccine status: Client denies travel out of the [place] in the last 14 days. Ebola Screen: Patient negative for fever greater than or equal to 101.5 degrees Fahrenheit, and additional compatible Ebola Virus Disease symptoms Patient denies exposure to infectious person. Patient denies travel to an Ebola-affected area in the 21 days before illness onset. Initial Sepsis Screen: Does the patient meet any 2 criteria? RR > 20 per min. Altered Mental Status. HR > 90 bpm. Does the patient have a suspected source of infection? Yes: Productive cough/pneumonia. Risk Assessment: Do you want to hurt yourself or someone else? Patient reports no desire to harm self or others. Onset of symptoms is unknown. 20:37 Method Of Arrival: EMS: [facility] 1 20:37 Acuity: YUNI 3 sf1 Triage Assessment: 20:40 General: Appears unkempt, Behavior is calm, Reports FEELING COLD. Pain: Denies pain. sf1 Historical: - Allergies: 05/18 07:05 No Known Allergies; jl7 - Home Meds: 05/17 20:54 aspirin 81 mg Oral TbEC 1 tab once daily [Active]; cholecalciferol (vitamin D3) Oral sf1 daily [Active]; multivitamin oral tab [Active]; atorvastatin 40 mg Oral tab 1 tab once daily [Active]; metformin 1,000 mg Oral tab 2 times per day [Active]; - PMHx: 20:40 COPD; Diabetes - NIDDM; High Cholesterol; Hypertension; sf1 - Immunization history:: Adult Immunizations unknown. - Social history:: Smoking status: unknown. Screenin/18 04:33 Abuse screen: Denies threats or abuse. Nutritional screening: No deficits noted. sf1 Tuberculosis screening: No symptoms or risk factors identified. Fall Risk Secondary diagnosis (15 points) . IV access (20 points). Mental Status- Overestimates/Forgets Limitations (15 pts.). Assessment: 05/17 20:42 General:. Neuro: Level of Consciousness is awake, alert, obeys commands, confused, sf1 Oriented to person. Cardiovascular: Rhythm is sinus tachycardia. Respiratory: Airway is patent Breath sounds with crackles bilaterally. Breath sounds are diminished bilaterally. GI: No deficits noted. Abdomen is round non-distended. : No deficits noted. EENT: No deficits noted. Derm: Wound noted left elbow Wound is SKIN TEAR RECEIVED FROM FALL PRIOR TO ARRIVAL. 05/18 20:19 Reassessment: Patient appears in no apparent distress at this time. No changes from lg3 previously documented assessment. Patient and/or family updated on plan of care and expected duration. Pain level reassessed. Patient is alert, oriented x 3, equal unlabored respirations, skin warm/dry/pink. General: Appears in no apparent distress. comfortable. Neuro: Level of Consciousness is awake, alert, obeys commands, confused, Oriented to person. Cardiovascular: Capillary refill < 3 seconds JVD is absent Patient's skin is warm and dry. Respiratory: Airway is patent Trachea midline Respiratory effort is even, unlabored, Respiratory pattern is regular, symmetrical. GI: No deficits noted. No signs and/or symptoms were reported involving the gastrointestinal system. Abdomen is round non-distended. : No deficits noted. EENT: No deficits noted. Derm: Skin is intact, Skin is dry, Wound noted left arm and left elbow Other: dressing intact. Vital Signs: 05/17 20:37 BP 128 / 88; Pulse 114; Resp 24; Temp 100.7; Pulse Ox 94% on R/A; Weight 122.47 kg; sf1 Height 5 ft. 11 in. (180.34 cm); Pain 0/10; 20:45 BP 128 / 88; Pulse 113; Resp 24; Temp 100.7; Pulse Ox 94% on R/A; sf1 22:48 BP 138 / 65; Pulse 113; Resp 18; Pulse Ox 90% on R/A; sf1 23:31 BP 106 / 50; Pulse 99; Resp 20; Pulse Ox 89% on R/A; sf1 05/18 00:26 BP 116 / 58; Pulse 90; Resp 22; Pulse Ox 91% on R/A; sf1 04:35 BP 129 / 71; Pulse 78; Resp 20; Temp 98.6(O); Pulse Ox 97% on R/A; sf1 05/17 20:37 Body Mass Index 37.66 (122.47 kg, 180.34 cm) sf1 ED Course: 05/17 20:23 Patient arrived in ED. ld1 20:24 Harshad Virgen MD is Attending Physician. pkl 20:37 Linda Dc RN is Primary Nurse. sf1 20:40 Triage completed. sf1 20:40 Arm band placed on left wrist. sf1 21:20 COVID-19/FLU A+B (Document "Date of Onset" if Symptomatic): fever Sent. sf1 21:20 Blood Culture Sent. sf1 21:20 Procalcitonin Sent. sf1 21:21 Lactate Sent. sf1 21:21 Basic Metabolic Panel Sent. sf1 21:21 CBC with Diff Sent. sf1 21:21 LFT's Sent. sf1 21:21 Magnesium Sent. sf1 21:21 NT PRO-BNP Sent. sf1 21:21 PT-INR Sent. sf1 21:21 Troponin HS Sent. sf1 21:33 XRAY Chest (1 view) In Process Unspecified. EDMS 21:44 Notified ED physician of a critical lab result(s). D-Dimer 1726. lp1 21:58 COVID-19/FLU A+B (Document "Date of Onset" if Symptomatic): fever Sent. sf1 21:58 Urine Microscopic Only Sent. sf1 22:18 Notified ED physician of a critical lab result(s). Troponin HS 184.3. lp1 22:23 CT Traumagram (Head C Spine CAP W Con) In Process Unspecified. EDMS 22:35 Blood Culture Adult (2) Sent. sf1 23:12 Regan Curry MD is Hospitalizing Provider. pkl 23:20 Daniel Sagastume DO is Hospitalizing Provider. la1 05/18 04:33 Patient has correct armband on for positive identification. Placed in gown. Bed in low sf1 position. Call light in reach. Side rails up X 1. bus monitor on. Pulse ox on. NIBP on. 04:33 No provider procedures requiring assistance completed. Inserted saline lock: 20 gauge sf1 in right antecubital area, using aseptic technique. 04:33 Inserted saline lock: 18 gauge in left antecubital area, using aseptic technique. sf1 07:05 Patient admitted, IV remains in place. jl7 Administered Medications: 05/17 21:57 Drug: Tetanus-Diphtheria Toxoid Adult 0.5 ml {Display Designer Outside: 123people. Exp: sf1 09/11/2022. Lot #: [id number]. } Route: IM; Site: left deltoid; 21:58 Drug: NS 0.9% 1000 ml Route: IV; Rate: 100 ml/hr; Site: left antecubital; sf1 21:58 Drug: Tylenol 650 mg Route: PO; sf1 22:46 Drug: Ativan (LORazepam) 0.5 mg Route: IVP; Site: left antecubital; sf1 23:39 Drug: NS 0.9% 500 ml {Note: per hospitalist only give 500ml.} Route: IV; Rate: 1000 ml; sf1 Site: left antecubital; Outcome: 23:14 Decision to Hospitalize by Provider. [facility] 05/18 07:05 Admitted to ER Hold. [facility] [place] for further documentation. jl7 Condition: stable Discharge instructions given to patient, family, Instructed on the need for admit, Demonstrated understanding of instructions. 20:52 Patient left the ED. lg3 Signatures: Dispatcher [employer] EDMS Harshad Virgen MD MD l Arina Gurrola, RN RN lp1 Mekhi Valencia, REGIONAL SALES REPRESENTATIVE-C REGIONAL SALES REPRESENTATIVE-Cla1 Yaritza Parekh RN RN jl7 Juana Mccarthy RN RN lg3 Mary Rodriguez, RN RN ld1 Linda Dc RN RN sf1 Corrections: (The following items were deleted from the chart) 05/17 21:26 21:20 C-REACTIVE PROTEIN+C.LAB.BRZ drawn and sent. EDNC 21:27 21:20 D-DIMER+COAG.LAB.BRZ drawn and sent. [facility] EDMS 05/18 04:36 04:35 BP 129 / 71; Pulse 78bpm; Resp 20bpm; Pulse Ox 97% RA; Temp 8.6F; sf1 sf1
--- NOTE | 2021-05-17 23:15 | EDPHYS ---
Physician Documentation [facility] Name: José Manuel Ferguson Jr Age: 81 yrs Sex: Male : 1940 Arrival Date: 05/17/2021 Time: 20:23 Bed 25 Private MD: ED Physician Harshad Virgen HPI: 05/17 21:06 This 81 yrs old Male presents to ER via EMS with unknown complaint. pkl 21:06 Patient fell at home and has skin tear left elbow. pkl 21:06 Family members at home tested positive for Covid 19. pkl Historical: - Allergies: 05/18 07:05 No Known Allergies; jl7 - Home Meds: 05/17 20:54 aspirin 81 mg Oral TbEC 1 tab once daily [Active]; cholecalciferol (vitamin D3) Oral sf1 daily [Active]; multivitamin oral tab [Active]; atorvastatin 40 mg Oral tab 1 tab once daily [Active]; metformin 1,000 mg Oral tab 2 times per day [Active]; - PMHx: 20:40 COPD; Diabetes - NIDDM; High Cholesterol; Hypertension; sf1 - Immunization history:: Adult Immunizations unknown. - Social history:: Smoking status: unknown. ROS: 21:06 Eyes: Negative for injury, pain, redness, and discharge, ENT: Negative for injury, pkl pain, and discharge, Neck: Negative for injury, pain, and swelling, Cardiovascular: Negative for chest pain, palpitations, and edema, Respiratory: Negative for shortness of breath, cough, wheezing, and pleuritic chest pain, Abdomen/GI: Negative for abdominal pain, nausea, vomiting, diarrhea, and constipation. 21:06 Back: Negative for acute changes. 21:06 : Negative for urinary symptoms. 21:06 MS/extremity: Positive for skin tear left elbow. 21:06 Neuro: Positive for confused. Exam: 22:10 Head/Face: Normocephalic, atraumatic. Eyes: Pupils equal round and reactive to light, pkl extra-ocular motions intact. Lids and lashes normal. Conjunctiva and sclera are non-icteric and not injected. Cornea within normal limits. Periorbital areas with no swelling, redness, or edema. ENT: Nares patent. No nasal discharge, no septal abnormalities noted. Tympanic membranes are normal and external auditory canals are clear. Oropharynx with no redness, swelling, or masses, exudates, or evidence of obstruction, uvula midline. Mucous membranes moist. Neck: Trachea midline, no thyromegaly or masses palpated, and no cervical lymphadenopathy. Supple, full range of motion without nuchal rigidity, or vertebral point tenderness. No Meningismus. Chest/axilla: Normal chest wall appearance and motion. Nontender with no deformity. No lesions are appreciated. 22:10 Cardiovascular: Rate: tachycardic, actual rate is 113 bpm, Rhythm: regular. 22:10 Respiratory: the patient does not display signs of respiratory distress, Respirations: labored breathing, that is mild, Breath sounds: rales, that are mild, are scattered. 22:10 Abdomen/GI: Bowel sounds: normal, Palpation: abdomen is soft and non-tender, in all quadrants. 22:10 Back: Exam negative for acute changes. 22:10 : Exam negative for acute changes. 22:10 Musculoskeletal/extremity: Exam is negative for acute changes. 22:10 Skin: Exam negative for rash. 22:10 Neuro: Orientation: is normal, Mentation: is normal, Cranial nerves: grossly normal, Motor: is normal. Vital Signs: 20:37 BP 128 / 88; Pulse 114; Resp 24; Temp 100.7; Pulse Ox 94% on R/A; Weight 122.47 kg; sf1 Height 5 ft. 11 in. (180.34 cm); Pain 0/10; 20:45 BP 128 / 88; Pulse 113; Resp 24; Temp 100.7; Pulse Ox 94% on R/A; sf1 22:48 BP 138 / 65; Pulse 113; Resp 18; Pulse Ox 90% on R/A; sf1 23:31 BP 106 / 50; Pulse 99; Resp 20; Pulse Ox 89% on R/A; sf1 05/18 00:26 BP 116 / 58; Pulse 90; Resp 22; Pulse Ox 91% on R/A; sf1 04:35 BP 129 / 71; Pulse 78; Resp 20; Temp 98.6(O); Pulse Ox 97% on R/A; sf1 05/17 20:37 Body Mass Index 37.66 (122.47 kg, 180.34 cm) [facility] MDM: 05/17 20:24 Patient medically screened. pkl 23:10 Data reviewed: vital signs, nurses notes, lab test result(s), EKG, radiologic studies. pk ED course: Talked to Mekhi Valencia ( [employer]INGER ) Admit to Regan Curry. 05/17 20:50 Order name: Basic Metabolic Panel; Complete Time: 22:21 pk 05/17 20:50 Order name: CBC with Diff; Complete Time: 23:32 pk 05/17 20:50 Order name: LFT's; Complete Time: 22:21 pk 05/17 20:50 Order name: Magnesium; Complete Time: 22:21 pk 05/17 20:50 Order name: NT PRO-BNP; Complete Time: 22:21 pk 05/17 20:50 Order name: PT-INR; Complete Time: 22:07 pk 05/17 20:50 Order name: Troponin HS; Complete Time: 22:21 pk 05/17 20:53 Order name: Blood Culture Adult (2) pk 05/17 20:53 Order name: Lactate; Complete Time: 22:07 pk 05/17 20:53 Order name: Procalcitonin; Complete Time: 23:02 pk 05/17 20:53 Order name: Blood Culture EDSC 05/17 20:55 Order name: ABG; Complete Time: 22:43 pk 05/17 21:04 Order name: COVID-19/FLU A+B (Document "Date of Onset" if Symptomatic): fever; Complete pk Time: 22:44 05/17 21:13 Order name: Urine Microscopic Only; Complete Time: 23:02 pk 05/17 21:28 Order name: D-Dimer; Complete Time: 22:07 EDSC 05/17 21:28 Order name: C-Reactive Protein; Complete Time: 22:21 EDSC 05/17 21:44 Order name: Manual Differential; Complete Time: 23:32 EDSC 05/17 21:48 Order name: Urine Dipstick-Ancillary; Complete Time: 22:07 EDMS 05/18 01:46 Order name: CREATININE WHOLE BLOOD EDMS 05/18 05:23 Order name: D-Dimer EDMS 05/18 05:43 Order name: Hemoglobin A1c EDMS 05/18 05:47 Order name: Comprehensive Metabolic Panel EDMS 05/18 05:47 Order name: Troponin High Sensitivity EDMS 05/18 05:47 Order name: Lipid Profile EDMS 05/18 05:47 Order name: C-Reactive Protein EDSC 05/18 05:47 Order name: T4 Free EDSC 05/18 05:47 Order name: Thyroid Stimulating Hormone EDSC 05/17 20:50 Order name: XRAY Chest (1 view); Complete Time: 23:02 [facility] 05/17 20:50 Order name: EKG; Complete Time: 20:51 pk 05/17 20:50 Order name: Cardiac monitoring; Complete Time: 21:21 [facility] 05/17 20:50 Order name: EKG - Nurse/Tech; Complete Time: 22:35 pk 05/17 20:50 Order name: IV Saline Lock; Complete Time: 21:21 [facility] 05/17 20:50 Order name: Labs collected and sent; Complete Time: 21:21 [facility] 05/17 20:50 Order name: O2 Per Protocol; Complete Time: 21:21 [facility] 05/17 20:50 Order name: O2 Sat Monitoring; Complete Time: 21:21 [facility] 05/17 21:13 Order name: Mahajan; Complete Time: 21:40 [facility] 05/17 21:14 Order name: CT Traumagram (Head C Spine CAP W Con) pk 05/18 06:18 Order name: CBC with Automated Diff EDSC 05/18 06:55 Order name: CBC Smear Scan EDSC 05/18 07:34 Order name: Procalcitonin EDSC 05/18 07:43 Order name: Glucose, Ancillary Testing EDSC 05/18 08:15 Order name: Ferritin EDSC 05/18 10:46 Order name: Gram Stain--Anaerobic Bottle EDSC 05/18 12:08 Order name: Glucose, Ancillary Testing EDSC 05/18 12:27 Order name: Troponin High Sensitivity EDSC 05/18 16:33 Order name: Glucose, Ancillary Testing EDSC Administered Medications: 21:57 Drug: Tetanus-Diphtheria Toxoid Adult 0.5 ml {[employer]: [employer]. Exp: sf09/11/2022. Lot #: [id number]. } Route: IM; Site: left deltoid; 21:58 Drug: NS 0.9% 1000 ml Route: IV; Rate: 100 ml/hr; Site: left antecubital; sf 21:58 Drug: Tylenol 650 mg Route: PO; sf1 22:46 Drug: Ativan (LORazepam) 0.5 mg Route: IVP; Site: left antecubital; sf1 23:39 Drug: NS 0.9% 500 ml {Note: per hospitalist only give 500ml.} Route: IV; Rate: 1000 ml; sf1 Site: left antecubital; Disposition Summary: 05/17/21 23:14 Hospitalization Ordered Hospitalization Status: Inpatient Admission pkl Condition: Stable pkl Problem: new pkl Symptoms: are unchanged pkl Bed/Room Type: Standard pkl Provider: Daniel Sagastume(05/17/21 23:20) la1 Location: Telemetry/MedSurg (Inpatient)(05/18/21 18:41) dw Room Assignment: 412(05/18/21 18:41) Diagnosis - Covid 19 pneumonia. Hypoxia. Elevated Troponin. Diabetes. S/P Fall pkl Forms: - Medication Reconciliation Form pkl - SBAR form pkl Signatures: Dispatcher [employer] EDMS Katie Brandt RN RN mw Woody, Diana, RN RN dw Lam, Pin, MD MD pkl Mekhi Valencia, KEEL PRESS OPERATOR-C KEEL PRESS OPERATOR-Cla1 Yaritza Parekh RN RN jl7 Linda Dc RN RN sf1 Corrections: (The following items were deleted from the chart) 20:54 20:54 HEMOGLOBIN A1C+CHEM A1C.LAB.BRZ ordered. EDMS EDMS 21:26 20:54 C-REACTIVE PROTEIN+C.LAB.BRZ ordered. EDMS EDMS 21:27 20:53 D-DIMER+COAG.LAB.BRZ ordered. EDMS EDMS 22:11 21:15 Head/Face: Normocephalic, atraumatic. Eyes: Pupils equal round and reactive to pkl light, extra-ocular motions intact. Lids and lashes normal. Conjunctiva and sclera are non-icteric and not injected. Cornea within normal limits. Periorbital areas with no swelling, redness, or edema. ENT: Nares patent. No nasal discharge, no septal abnormalities noted. Tympanic membranes are normal and external auditory canals are clear. Oropharynx with no redness, swelling, or masses, exudates, or evidence of obstruction, uvula midline. Mucous membranes moist. Neck: Trachea midline, no thyromegaly or masses palpated, and no cervical lymphadenopathy. Supple, full range of motion without nuchal rigidity, or vertebral point tenderness. No Meningismus. Chest/axilla: Normal chest wall appearance and motion. Nontender with no deformity. No lesions are appreciated. Cardiovascular: Regular rate and rhythm with a normal S1 and S2. No gallops, murmurs, or rubs. Normal PMI, no JVD. No pulse deficits. Respiratory: Lungs have equal breath sounds bilaterally, clear to auscultation and percussion. No rales, rhonchi or wheezes noted. No increased work of breathing, no retractions or nasal flaring. Abdomen/GI: Soft, non-tender, with normal bowel sounds. No distension or tympany. No guarding or rebound. No evidence of tenderness throughout. Back: No spinal tenderness. No costovertebral tenderness. Full range of motion. pkl 22:11 21:15 Musculoskeletal/extremity: Extremities: grossly normal except: noted in the left pkl elbow: skin tear, pkl 22:11 21:15 Neuro: Mentation: confused, Cranial nerves: grossly normal, Motor: moves all pkl fours, pkl 23:20 23:14 Regan Curry pkl la1 23:42 23:14 Telemetry/MedSurg (Inpatient) pk mw 23:42 23:14 pkl mw 05/18 18:41 05/17 23:42 [facility] ER HOLD mw dw 05/18 18:41 05/17 23:42 ERHOLD- mw dw
[2021-05-17 23:30] LABS: Blood Morphology Comment NOT SEEN (NOT SEEN); Platelet Estimate ADEQ
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
[2021-05-18] MEDS ORDERED: ONDANSETRON 4 MG/2 ML VIAL IV PRN (01:15)
[2021-05-18] MEDS: METHYLPREDNISOLONE 40 MG INJ IV SCH ×3 (01:15→17:00)
[2021-05-18] MEDS ORDERED: ACETAMINOPHEN 500 MG TAB PO PRN (01:15)
[2021-05-18] MEDS ORDERED: BENZONATATE 100 MG CAP PO PRN (01:15)
[2021-05-18] MEDS: NA CHLORIDE 0.9% 1,000 ML IV SCH ×2 (01:15→11:15)
[2021-05-18 01:26] VITALS: BMI 37.5
[2021-05-18] MEDS ORDERED: NA CHLORIDE 0.9% 1,000 ML ONE (04:27)
[2021-05-18 05:28] LABS: Absolute Lymphocytes (CBC) 0.5 K/uL (0.7-4.9); Lymphocytes % 6.1 % (15.3-44.8); MPV 7.3 fL (7.6-11.3); RBC Red Blood Cell Count 4.39 M/uL (4.33-5.43)
[2021-05-18 05:45] LABS: Albumin 2.5 g/dL (3.4-5.0); Bilirubin Total 0.4 mg/dL (0.2-1.0); C-Reactive Protein 45.1 mg/L (<3.00); Potassium 3.8 mmol/L (3.5-5.1); Protein, Total 6.8 g/dL (6.4-8.2); Thyroid Stimulating Hormone 1.87 uIU/mL (0.360-3.740)
[2021-05-18 05:47] LABS: Troponin High Sensitivity 571.3 pg/mL (<58.9)
[2021-05-18] MEDS: METOPROLOL TAR 25 MG TAB PO SCH ×2 (06:00→18:00)
--- NOTE | 2021-05-18 06:22 | P.PN ---
Subjective Date of Service: 05/18/21 Primary Care Provider: unknown Chief Complaint: COVID-19 pneumonia Subjective: Doing well Physical Examination - Vital Signs Blood Pressure: 115/57 Pulse: 83 Respirations: 17 Pulse Ox (%): 93 - Studies Laboratory Data (last 24 hrs) 05/17/21 21:12: PT 12.2, INR 1.06 05/17/21 21:12: WBC 7.20, Hgb 13.0 L, Hct 39.8, Plt Count 168 05/17/21 21:12: Sodium 132 L, Potassium 3.9, BUN 15, Creatinine 1.23, Glucose 183 H, Magnesium 2.4, Total Bilirubin 0.5, AST 39 H, ALT 46, Alkaline Phosphatase 129 H Assessment & Plan Discharge Plan: Home (With home health and physical therapy at discharge) Plan to discharge in: 72 Hours Physician Review Additional Text: COVID: Positive Unvaccinated CXR: COMPARISON: 05/01/2021 TECHNIQUE: AP portable chest image was obtained 05/17/2021 9:33 pm . FINDINGS: Interstitial opacities are present in the lung serrano similar to comparison. Patchy alveolar opacification has increased in the lower right lung field without a large very of consolidation. The hilar regions are stable. Heart and vasculature are normal. No measurable pleural effusion and no pneumothorax. No acute bony abnormality seen. No acute aortic findings suspected. IMPRESSION: Suspected early pneumonia right lower lung field. CT Head/Spine scan: No acute abnormality noted Physical Exam General: Alert, oriented. HEENT: Atraumatic, Other (Mucous membranes dry) Neck: Supple Respiratory: Diminished to the bases. Currently on room air. Cardiovascular: No edema Capillary refill: <2 Seconds Gastrointestinal: Normal bowel sounds, Soft and benign Musculoskeletal: No clubbing. Dry skin. Neurological: Normal speech, Normal tone Lymphatics: No axilla or inguinal lymphadenopathy Impression: Acute hypoxic respiratory failure secondary to COVID-19 pneumonia with possible right lower lobe pneumonia complicated with underlying COPD Metabolic encephalopathy Mildly elevated troponin likely ischemic demand with underlying chronic diastolic CHF Acute renal insufficiency Diabetes mellitus type 2 with hyperglycemia History of COPD Hypertension Hyperlipidemia Fall Plan: Acute hypoxic respiratory failure secondary to COVID-19 pneumonia with possible right lower lobe pneumonia complicated with underlying COPD: Continue IV steroids and supplementation for COVID-19. Continue to monitor CRP and ferritin. X-ray shows possible pneumonia. Will start Levaquin to cover for bacteria pneumonia. Will provide COPD medication. Continue IV fluids. Electrolyte protocol in place. Recheck chest x-ray tomorrow. We will have physical therapy assess ambulation especially with recent fall at home. Anticipate continued improvement. Patient will likely require home health and physical therapy at discharge. Likely home in the next 2 to 3 days. Metabolic encephalopathy: Continue above Mildly elevated troponin likely ischemic demand with underlying chronic diastolic CHF: We will monitor troponin. No need for further intervention at this time. Will discuss with cardiology. Continue IV fluids for up to 1 L. Encourage oral intake. Obtain verify home medication. Acute renal insufficiency: Continue IV fluids. Encourage oral intake. Will monitor closely. Diabetes mellitus type 2 with hyperglycemia: Hemoglobin A1c 8.3. Continue Accu- Cheks and sliding scale. Need to obtain and verify home medication. Hypertension: Blood pressure stable off medication at this time. Hyperlipidemia: Obtain and verify home medication. Fall: CT scan unremarkable. Physical therapy to assess ambulation. Will recommend home health and physical therapy at discharge. DVT PPX: Lovenox Code status: Patient is DNR Discharge Plan: Home at discharge likely with home health and physical therapy. Time Spent Managing Pts Care (In Minutes): 55
[2021-05-18 06:54] LABS: Blood Morphology Comment NOT SEEN (NOT SEEN); Platelet Estimate DECR; White Blood Cell Scan DIFF (OK)
[2021-05-18] MEDS: INSULIN -REGULAR HUMAN 50 UNIT/0.5 ML ML SQ SCH ×4 (07:30→22:09)
[2021-05-18] MEDS ORDERED: METOPROLOL TAR 25 MG TAB ONE ×2 (07:37→18:18)
[2021-05-18] MEDS ORDERED: IPRATROPIUM BROM 0.5MG/2.5ML NEB PRN (07:45)
[2021-05-18] MEDS ORDERED: ALBUTEROL 2.5 MG/3 ML NEB SOL NEB PRN (07:45)
[2021-05-18] MEDS: Levofloxacin 750mg IV 750 MG/150 ML BAG IV SCH (08:00)
[2021-05-18] MEDS: ARFORMOTEROL TARTRATE 15 MCG/2 ML VIAL.NEB NEB SCH ×2 (08:00→20:00)
[2021-05-18] MEDS ORDERED: FOLIC ACID 1 MG TABLET ONE (08:10)
[2021-05-18] MEDS ORDERED: THIAMINE HCL 100 MG TABLET ONE (08:10)
[2021-05-18] MEDS ORDERED: ASPIRIN EC 81 MG TAB PO ONE (08:10)
[2021-05-18] MEDS ORDERED: VITAMIN D 1000 UNIT TAB ONE (08:11)
[2021-05-18] MEDS ORDERED: METHYLPREDNISOLONE 40 MG INJ ONE ×2 (08:11→18:18)
[2021-05-18] MEDS ORDERED: ZINC SULFATE 220 MG CAP ONE (08:11)
[2021-05-18] MEDS ORDERED: ENOXAPARIN 40 MG/0.4 ML SQ ONE (08:12)
[2021-05-18] MEDS ORDERED: Levofloxacin 750mg IV 750 MG/150 ML BAG IV ONE (08:12)
[2021-05-18] MEDS ORDERED: INSULIN -REGULAR HUMAN 50 UNIT/0.5 ML ML ONE ×3 (08:12→16:26)
[2021-05-18] MEDS: ENOXAPARIN 40 MG/0.4 ML SQ SCH (09:00)
[2021-05-18] MEDS: FOLIC ACID 1 MG TABLET PO SCH (09:00)
[2021-05-18] MEDS: THIAMINE HCL 100 MG TABLET PO SCH (09:00)
[2021-05-18] MEDS: ZINC SULFATE 220 MG CAP PO SCH (09:00)
[2021-05-18] MEDS: ASPIRIN EC 81 MG TAB PO SCH (09:00)
[2021-05-18] MEDS: VITAMIN D 1000 UNIT TAB PO SCH (09:00)
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
[2021-05-18] MEDS ORDERED: PNEUMOCOCCAL VACCINE 0.5 ML IMVAC ONE (13:00)
--- NOTE | 2021-05-18 15:53 | RAD REPORT ---
EXAM DESCRIPTION: CT - Head C Spine Asim Mosqueda - 05/18/2021 6:33 am CLINICAL HISTORY: Fall COMPARISON: None. TECHNIQUE: CT HEAD C-SPINE WITHOUT CHEST ABDOMEN PELVIS WITH IV CONTRAST on 05/17/2021 9:14 PM DIRECTOR CARD This exam was performed according to our departmental dose-optimization program, which includes autom ated exposure control, adjustment of the mA and/or kV according to patient size and/or use of iterati ve reconstruction technique. FINDINGS: Brain: There is no acute hemorrhage, mass effect or midline shift. Corbett-white differentiat ion is preserved. There is no hydrocephalus. There is moderate mostly bifrontal cerebral atrophy. The calvarium is intact. Orbits and globes are unremarkable. The paranasal sinuses are clear. Mastoid air cells are clear. Cervical Spine: There is no acute fracture. Alignment is anatomic. There is mild bilateral facet arth ritis. There is moderate narrowing of the C3-4 and C5-6 and C6-7 discs. Vertebral body heights are preserved . Soft tissues are unremarkable. IMPRESSION: No acute postraumatic findings. Electronically signed by: Juan José Robles MD 05/17/2021 10:41 PM DIRECTOR CARD Due to temporary technical issues with the PACS/Fluency reporting system, reports are being signed by the in house radiologists without review as a courtesy to insure prompt reporting. The interpreting radiologist is fully responsible for the content of the report.
[2021-05-18 21:28] VITALS: O2SAT 97
[2021-05-19] MEDS: METHYLPREDNISOLONE 40 MG INJ IV SCH ×2 (01:29→08:26)
[2021-05-19 03:47] LABS: Absolute Lymphocytes (CBC) 0.5 K/uL (0.7-4.9); Lymphocytes % 6.7 % (15.3-44.8); MPV 7.3 fL (7.6-11.3); RBC Red Blood Cell Count 4.03 M/uL (4.33-5.43)
[2021-05-19 04:11] LABS: Albumin 2.5 g/dL (3.4-5.0); Bilirubin Total 0.2 mg/dL (0.2-1.0); C-Reactive Protein 71.1 mg/L (<3.00); Ferritin 68.9 ng/mL (26-388); Potassium 4.8 mmol/L (3.5-5.1); Protein, Total 6.8 g/dL (6.4-8.2)
[2021-05-19] MEDS ORDERED: Magnesium Sulfate 2gm IVPB 2 G/50 ML BAG IV ONE (04:22)
[2021-05-19] MEDS ORDERED: NA CHLORIDE 0.9% 100 ML ONE (04:31)
[2021-05-19] MEDS: METOPROLOL TAR 25 MG TAB PO SCH (05:44)
[2021-05-19 05:46] LABS: Magnesium 1.9 mg/dL (1.8-2.4)
--- NOTE | 2021-05-19 06:15 | P.PN ---
Subjective Date of Service: 05/19/21 Primary Care Provider: unknown Chief Complaint: COVID-19 pneumonia Subjective: Improving, Doing well Physical Examination - Vital Signs Temperature: 97.8 F Blood Pressure: 175/80 Pulse: 58 Respirations: 20 Pulse Ox (%): 92 - Studies Microbiology Data (last 24 hrs): 05/17/21 22:32 Blood - Blood Gram Stain - Final Assessment & Plan Discharge Plan: Home Plan to discharge in: 24 Hours Physician Review Additional Text: COVID: Positive Unvaccinated CXR: COMPARISON: 05/01/2021 TECHNIQUE: AP portable chest image was obtained 05/17/2021 9:33 pm . FINDINGS: Interstitial opacities are present in the lung serrano similar to comparison. Patchy alveolar opacification has increased in the lower right lung field without a large very of consolidation. The hilar regions are stable. Heart and vasculature are normal. No measurable pleural effusion and no pneumothorax. No acute bony abnormality seen. No acute aortic findings suspected. IMPRESSION: Suspected early pneumonia right lower lung field. CT Head/Spine scan: No acute abnormality noted Follow up CXR: COMPARISON: Chest Single View dated 05/17/2021; Chest Single View dated 05/01/2021; Chest Single View dated 11/13/2018; Chest Single View dated 09/27/2018 FINDINGS: Lines: None. Lungs: Mild scattered bilateral airspace disease without significant interval change compared with 05/17/2021. Pleural: No significant pleural effusions or pneumothorax. Cardiac: Heart size is borderline enlarged. Bones: No acute fractures. IMPRESSION: Mild airspace disease bilaterally is unchanged since 05/17/2021. Physical Exam General: Alert, oriented. HEENT: Atraumatic, Other (Mucous membranes dry) Neck: Supple Respiratory: Patient overall improved. Currently on 2 L Cardiovascular: No edema Capillary refill: <2 Seconds Gastrointestinal: Normal bowel sounds, Soft and benign Musculoskeletal: No clubbing. Dry skin. Neurological: Normal speech, Normal tone Lymphatics: No axilla or inguinal lymphadenopathy Impression: Acute hypoxic respiratory failure secondary to COVID-19 pneumonia with possible right lower lobe pneumonia complicated with underlying COPD Metabolic encephalopathy Mildly elevated troponin likely ischemic demand with underlying chronic diastolic CHF Acute renal insufficiency Diabetes mellitus type 2 with hyperglycemia History of COPD Hypertension Hyperlipidemia Fall Plan: Acute hypoxic respiratory failure secondary to COVID-19 pneumonia with possible right lower lobe pneumonia complicated with underlying COPD: Patient doing well at this time. Will consider discharge later today. If not 1 more day to continue treatment. Metabolic encephalopathy: Continue above Mildly elevated troponin likely ischemic demand with underlying chronic diastolic CHF: DC fluids.. Acute renal insufficiency: DC fluids Diabetes mellitus type 2 with hyperglycemia: Hemoglobin A1c 8.3. Continue Accu- Cheks and sliding scale. Need to obtain and verify home medication. Hypertension: Obtaining restart home medication Hyperlipidemia: Obtain restart home medication Fall: CT scan unremarkable. Physical therapy to assess ambulation. Will recommend home health and physical therapy at discharge. DVT PPX: Lovenox Code status: Patient is DNR Discharge Plan: Home at discharge likely with home health and physical therapy. Time Spent Managing Pts Care (In Minutes): 55
--- NOTE | 2021-05-19 07:28 | EKG ---
Test Date: 2021-05-17 Test Time: 22:21:41 Mineralogy Teacher: MEASUREMENT RESULTS: Intervals: Rate: 113 [place]: 232 QRSD: 142 QT: 330 QTc: 452 [place]: P: 32 [place]: 232 QRS: 47 T: 122 INTERPRETIVE STATEMENTS: Sinus tachycardia with 1st degree AV block with fusion complexes Left bundle branch block Abnormal ECG Compared to ECG 05/01/2021 09:58:45 Fusion complex(es) now present Left bundle-branch block now present Sinus bradycardia no longer present Electronically Signed On 05-19-21 07:26:13 CLINICAL SOCIAL WORK AIDE by Geovany Avila
--- NOTE | 2021-05-19 07:49 | RAD REPORT ---
EXAM DESCRIPTION: RAD - Chest Single View - 05/19/2021 7:22 am CLINICAL HISTORY: Follow up COVID COMPARISON: Chest Single View dated 05/17/2021; Chest Single View dated 05/01/2021; Chest Single View d ated 11/13/2018; Chest Single View dated 09/27/2018 FINDINGS: Lines: None. Lungs: Mild scattered bilateral airspace disease without significant interval change compared with . Pleural: No significant pleural effusions or pneumothorax. Cardiac: Heart size is borderline enlarged. Bones: No acute fractures. Other: IMPRESSION: Mild airspace disease bilaterally is unchanged since 05/17/2021.
[2021-05-19] MEDS ORDERED: INFLUENZA VACCINE (for 6+ mo) 0.5 ML DOSE IMVAC ONE (08:00)
[2021-05-19] MEDS: Levofloxacin 750mg IV 750 MG/150 ML BAG IV SCH (08:24)
[2021-05-19] MEDS: INSULIN -REGULAR HUMAN 50 UNIT/0.5 ML ML SQ SCH ×2 (08:25→12:25)
[2021-05-19] MEDS: ENOXAPARIN 40 MG/0.4 ML SQ SCH (08:26)
[2021-05-19] MEDS: THIAMINE HCL 100 MG TABLET PO SCH (08:26)
[2021-05-19] MEDS: ZINC SULFATE 220 MG CAP PO SCH (08:27)
[2021-05-19] MEDS: VITAMIN D 1000 UNIT TAB PO SCH (08:27)
[2021-05-19] MEDS: FOLIC ACID 1 MG TABLET PO SCH (08:27)
[2021-05-19] MEDS: ASPIRIN EC 81 MG TAB PO SCH (08:27)
[2021-05-19] MEDS: ARFORMOTEROL TARTRATE 15 MCG/2 ML VIAL.NEB NEB SCH (09:30)
[2021-05-19 13:42] VITALS: BP 175/80; TEMP 97.8
--- NOTE | 2021-05-19 13:58 | P.DS ---
Admission Date: 05/18/21 Discharge Date: 05/19/21 Primary Care Provider: unknown Disposition: ROUTINE DISCHARGE Discharge Condition: GOOD Reason for Admission: COVID-19 pneumonia Consultations: Pulmonary-Dr. Mann Procedures: COVID: Positive Unvaccinated CXR: COMPARISON: 05/01/2021 TECHNIQUE: AP portable chest image was obtained 05/17/2021 9:33 pm . FINDINGS: Interstitial opacities are present in the lung serrano similar to comparison. Patchy alveolar opacification has increased in the lower right lung field without a large very of consolidation. The hilar regions are stable. Heart and vasculature are normal. No measurable pleural effusion and no pneumothorax. No acute bony abnormality seen. No acute aortic findings suspected. IMPRESSION: Suspected early pneumonia right lower lung field. CT Head/Spine scan: No acute abnormality noted Follow up CXR: COMPARISON: Chest Single View dated 05/17/2021; Chest Single View dated 05/01/2021; Chest Single View dated 11/13/2018; Chest Single View dated 09/27/2018 FINDINGS: Lines: None. Lungs: Mild scattered bilateral airspace disease without significant interval change compared with 05/17/2021. Pleural: No significant pleural effusions or pneumothorax. Cardiac: Heart size is borderline enlarged. Bones: No acute fractures. IMPRESSION: Mild airspace disease bilaterally is unchanged since 05/17/2021. Medical Problem List: Acute hypoxic respiratory failure secondary to COVID-19 pneumonia with possible right lower lobe pneumonia complicated with underlying COPD Metabolic encephalopathy Mildly elevated troponin likely ischemic demand with underlying chronic diastolic CHF Acute renal insufficiency likely dehydration Diabetes mellitus type 2 with hyperglycemia History of COPD Hypertension Hyperlipidemia Fall Brief History of Present Illness: 81-year-old male presented with shortness of breath. Patient found to have COVID-pneumonia complicated with COPD. Patient admitted for treatment. Hospital Course: Patient presented with shortness of breath secondary to acute hypoxic respiratory failure related to COVID-19 pneumonia with possible right lower lobe pneumonia. This was complicated with underlying COPD. Patient had some metabolic encephalopathy with slightly elevated troponin likely ischemic demand especially in light of his history of chronic diastolic CHF. The patient was admitted for treatment. Patient received IV antibiotic therapy, steroids with improvement. Pulmonology evaluated patient. No further intervention required. At discharge patient without the need for oxygen. At discharge the patient will continue with Levaquin 750 mg daily for 5 more days. Patient will also continue with prednisone 10 mg 1 pill twice daily for 7 days then 1 pill once daily for 7 days. Tessalon Perles 100 mg 3 times a day as needed for cough will be provided. For his COPD patient will continue with albuterol 2 puffs 3 times a day as needed for shortness of breath and Symbicort 2 puffs twice daily. Patient will continue with CDC guidelines on COVID-19 including facemask use, handwashing and social distancing. Patient will continue with his vitamin supplementation. Recommend follow-up with pulmonology in 1 week to follow-up his hospitalization. Recommend to recheck chest x-ray in 2 to 4 weeks to monitor resolution. Follow-up with PCP in 1 to 2 weeks to follow-up his ho spitalization. Patient with acute renal insufficiency likely dehydration. Patient received IV fluids with improvement. Patient tolerating diet. Overall stable. Patient with chronic diastolic CHF. Overall stable. Patient will continue with 1500 cc/day fluid restriction and low-salt diet. No need for diuretic therapy at discharge. Patient with diabetes mellitus type 2 with hyperglycemia. Hemoglobin A1c 8.3. At discharge patient will continue with his current medication of metformin 1000 mg 1 pill twice daily. Recommend to maintain blood sugar less than 140 fasting and less than 200 after meals. Recommend to recheck hemoglobin A1c every 3 months to monitor his progress. May need to adjust medication in the future if blood sugar remains elevated. This can be done with the help of his PCP. Recommend follow-up with PCP to further monitor and address. Patient with hyperlipidemia. At discharge patient will continue with Lipitor 20 mg daily. Patient with hypertension. At discharge patient will continue with aspirin 81 mg daily and metoprolol XL 25 mg daily. Recommend to maintain blood pressure less than 130/80. Further dyspnea can be done by his PCP. Patient will continue with his vitamin supplementation. Patient with recent fall. CT scan unremarkable. Physical therapy ambulated patient. Patient doing well. Continue with fall precautions. Vital Signs/Physical Exam: Temp Pulse Resp BP Pulse Ox 97.8 F 58 20 175/80 H 92 05/19/21 13:41 05/19/21 13:41 05/19/21 13:41 05/19/21 13:41 05/19/21 13:41 General: Alert, In no apparent distress, Oriented x3, Cooperative HEENT: Atraumatic Neck: Supple Respiratory: Clear to auscultation bilaterally, Normal air movement Cardiovascular: Normal pulses, Regular rate/rhythm Gastrointestinal: Normal bowel sounds, No tenderness, No masses, No rebound, No guarding Musculoskeletal: No erythema, No tenderness, No warmth Integumentary: No tenderness/swelling Neurological: Normal speech, Normal strength at 5/5 x4 extr, Normal tone, Normal affect Laboratory Data at Discharge: WBC 6.90 K/uL (4.3-10.9) 05/19/21 03:01 Hgb 11.5 g/dL (13.6-17.9) L 05/19/21 03:01 Hct 34.0 % (39.6-49.0) L 05/19/21 03:01 Plt Count 156 K/uL (152-406) 05/19/21 03:01 PT 12.2 SECONDS (9.5-12.5) 05/17/21 21:12 INR 1.06 05/17/21 21:12 Sodium 132 mmol/L (136-145) L 05/19/21 03:01 Potassium 4.8 mmol/L (3.5-5.1) 05/19/21 03:01 BUN 28 mg/dL (7-18) H 05/19/21 03:01 Creatinine 1.23 mg/dL (0.55-1.3) 05/19/21 03:01 Glucose 287 mg/dL (74-106) H 05/19/21 03:01 Magnesium 2.2 mg/dL (1.8-2.4) 05/19/21 11:46 Total Bilirubin 0.2 mg/dL (0.2-1.0) 05/19/21 03:01 AST 29 U/L (15-37) 05/19/21 03:01 ALT 36 U/L (12-78) 05/19/21 03:01 Alkaline Phosphatase 99 U/L (45-117) 05/19/21 03:01 Triglycerides 105 mg/dL (<150) 05/18/21 04:59 Cholesterol 157 mg/dL (<200) 05/18/21 04:59 HDL Cholesterol 65 mg/dL (40-60) H 05/18/21 04:59 Cholesterol/HDL Ratio 2.42 05/18/21 04:59 Home Medications: Aspirin 1 tab PO DAILY 05/02/21 Atorvastatin Calcium 0.5 tab PO BEDTIME 05/02/21 Cholecalciferol (Vitamin D3) [Vitamin D3] 2 cap PO DAILY 05/02/21 Metformin HCl 1 tab PO BID 05/02/21 Metoprolol Succinate 1 tab PO BEDTIME 05/02/21 Albuterol Inhaler [Ventolin Inhaler*] 2 puff IH Q6H PRN #1 hfa.aer.ad 05/19/21 Benzonatate [Tessalon Perle*] 100 mg PO TID PRN #10 cap 05/19/21 Budesonide/Formoterol Fumarate [Symbicort 160-4.5 Mcg Inhaler] 2 puff IH BID #1 hfa.aer.ad 05/19/21 levoFLOXacin [Levaquin] 750 mg PO DAILY #5 tab 05/19/21 predniSONE [Deltasone*] 10 mg PO SEECOM #21 tab 05/19/21 New Medications: predniSONE [Deltasone*] 10 mg PO SEECOM #21 tab levoFLOXacin [Levaquin] 750 mg PO DAILY #5 tab Budesonide/Formoterol Fumarate [Symbicort 160-4.5 Mcg Inhaler] 2 puff IH BID #1 hfa.aer.ad Benzonatate [Tessalon Perle*] 100 mg PO TID PRN #10 cap PRN Reason: Cough Albuterol Inhaler [Ventolin Inhaler*] 2 puff IH Q6H PRN #1 hfa.aer.ad PRN Reason: Shortness Of Breath Physician Discharge Instructions: Patient presented with shortness of breath secondary to acute hypoxic respiratory failure related to COVID-19 pneumonia with possible right lower lobe pneumonia. This was complicated with underlying COPD. Patient had some metabolic encephalopathy with slightly elevated troponin likely ischemic demand especially in light of his history of chronic diastolic CHF. The patient was admitted for treatment. Patient received IV antibiotic therapy, steroids with improvement. Pulmonology evaluated patient. No further intervention required. At discharge patient without the need for oxygen. At discharge the patient will continue with Levaquin 750 mg daily for 5 more days. Patient will also continue with prednisone 10 mg 1 pill twice daily for 7 days then 1 pill once daily for 7 days. Tessalon Perles 100 mg 3 times a day as needed for cough will be provided. For his COPD patient will continue with albuterol 2 puffs 3 times a day as needed for shortness of breath and Symbicort 2 puffs twice daily. Patient will continue with CDC guidelines on COVID-19 including facemask use, handwashing and social distancing. Patient will continue with his vitamin supplementation. Recommend follow-up with pulmonology in 1 week to follow-up his hospitalization. Recommend to recheck chest x-ray in 2 to 4 weeks to monitor resolution. Follow-up with PCP in 1 to 2 weeks to follow-up his hospitalization. Patient with acute renal insufficiency likely dehydration. Patient received IV fluids with improvement. Patient tolerating diet. Overall stable. Patient with chronic diastolic CHF. Overall stable. Patient will continue with 1500 cc/day fluid restriction and low-salt diet. No need for diuretic therapy at discharge. Patient with diabetes mellitus type 2 with hyperglycemia. Hemoglobin A1c 8.3. At discharge patient will continue with his current medication of metformin 1000 mg 1 pill twice daily. Recommend to maintain blood sugar less than 140 fasting and less than 200 after meals. Recommend to recheck hemoglobin A1c every 3 months to monitor his progress. May need to adjust medication in the future if blood sugar remains elevated. This can be done with the help of his PCP. Recommend follow-up with PCP to further monitor and address. Patient with hyperlipidemia. At discharge patient will continue with Lipitor 20 mg daily. Patient with hypertension. At discharge patient will continue with aspirin 81 mg daily and metoprolol XL 25 mg daily. Recommend to maintain blood pressure less than 130/80. Further dyspnea can be done by his PCP. Patient will continue with his vitamin supplementation. Patient with recent fall. CT scan unremarkable. Physical therapy ambulated patient. Patient doing well. Continue with fall precautions. Diet: ADA Activity: Fall precautions Followup: Unknown,U [Primary Care Provider] - Time spent managing pt's care (in minutes): 55
== END 2021-05-19 17:32 | disposition home health service (06) | DRG 177 ==
LOC: ER 20:11 → ERHOLD 05-18 00:01 → 4TH 05-18 20:07
PROVIDERS: ADMIT Family Medicine; ATTEND Family Medicine
DX: U07.1 COVID-19 (principal); J12.82 Pneumonia due to coronavirus disease 2019; J96.01 Acute respiratory failure with hypoxia; G93.41 Metabolic encephalopathy; J44.0 Chronic obstructive pulmonary disease with (acute) lower respiratory infection; I50.32 Chronic diastolic (congestive) heart failure; I24.8 Other forms of acute ischemic heart disease; I11.0 Hypertensive heart disease with heart failure; N28.9 Disorder of kidney and ureter, unspecified; E86.0 Dehydration; E11.65 Type 2 diabetes mellitus with hyperglycemia; E78.5 Hyperlipidemia, unspecified; R77.8 Other specified abnormalities of plasma proteins; S51.012A Laceration without foreign body of left elbow, initial encounter; W18.30XA Fall on same level, unspecified, initial encounter; Y92.099 Unspecified place in other non-institutional residence as the place of occurrence of the external cause; Z66 Do not resuscitate; Z79.82 Long term (current) use of aspirin; Z79.84 Long term (current) use of oral hypoglycemic drugs; Z79.899 Other long term (current) drug therapy; Z79.52 Long term (current) use of systemic steroids; Z87.891 Personal history of nicotine dependence
CPT/HCPCS: 0240U; 36415; 70450; 71045; 71260; 72125; 74177; 80048; 80053; 80061; 80076; 81003; 81015; 82565; 82728; 82805; 82947; 83036; 83605; 83735; 83880; 84145; 84439; 84443; 84484; 85025; 85379; 85610; 86140; 87040; 87077; 87186; 87205; 90471; 90714; 93005; 94640; 96374; 97116; 97161; 99285; J1650; J2920; J3475; J7030; J7605; Q9967